=== PATIENT | female | born 1945 | race Caucasian/White ===

== ENCOUNTER 2017-12-26 11:42 | Inpatient (IN) | payer OTHER, BC ==
--- OUTSIDE RECORDS SUMMARY | 2017-12-26 11:44 | XMS REPORT | Clinical Summary ---
:1945 Author Organization [facility] Address [address] [place] [address] Phone Care Team Providers Name Role Phone Unavailable Primary Care Provider Unavailable Allergies Active Allergy Reactions Severity Noted Date Comments Penicillins 10/05/2017 [place]ine 10/06/2017 Current Medications Prescription Sig. Disp. Refills Start End Date Status Date rOPINIRole Take 1 mg by mouth Active (REQUIP) 1 MG daily. tablet estradiol Take 1 mg by mouth Active (ESTRACE) 1 MG daily. tablet gabapentin Take 300 mg by Active (NEURONTIN) 300 MG mouth every other capsule day. gabapentin Take 600 mg by Active (NEURONTIN) 600 MG mouth every other tablet day. pantoprazole Take 40 mg by Active (PROTONIX) 40 MG mouth daily. tablet celecoxib Take 200 mg by Active (CELEBREX) 200 MG mouth daily. capsule nebivolol Take 5 mg by mouth Active (BYSTOLIC) 5 MG daily. tablet montelukast Take 10 mg by Active (SINGULAIR) 10 mg mouth nightly. tablet predniSONE Take 10 mg by Active (DELTASONE) 10 MG mouth daily. tablet folic acid Take 1 mg by mouth Active (FOLVITE) 1 MG daily. tablet cholecalciferol, Take 10,000 Units Active vitamin D3, 1,000 by mouth daily. unit capsule INFLIXIMAB Inject Active (REMICADE IV) intravenously every 7 days. venlafaxine Take 1 capsule 30 tablet 0 10/11/19 Active (EFFEXOR-XR) 150 (150 mg total) by 8 19 MG 24 hr capsule mouth daily with breakfast. methocarbamol Take 1 tablet (750 60 tablet 0 Active (ROBAXIN) 750 MG mg total) by mouth 8 tablet 4 (four) times daily as needed for up to 60 doses. acetaminophen-code Take 1 tablet by 10/10/19 Discontinued ine (TYLENOL #3) mouth every 4 18 300-30 mg per (four) hours as tablet needed for Pain. methotrexate 2.5 Take 7.5 mg by 10/10/19 Discontinued MG tablet mouth. 18 ondansetron Take 1 tablet (4 20 tablet 0 10/17/19 (ZOFRAN-ODT) 4 MG mg total) by mouth 8 18 disintegrating every 8 (eight) tablet hours as needed for up to 7 days. enoxaparin Inject 0.4 mLs (40 12 mL 0 11/09/19 (LOVENOX) 40 mg total) 8 18 mg/0.4 mL Syrg subcutaneously daily for 30 days. famotidine Take 1 tablet (20 60 tablet 0 11/09/19 (PEPCID) 20 MG mg total) by mouth 8 18 tablet 2 (two) times daily for 30 days. docusate sodium Take 1 capsule 10 capsule 0 10/20/19 (COLACE) 100 MG (100 mg total) by 8 18 capsule mouth 2 (two) times daily for 10 days. senna (SENOKOT) Take 1 tablet (8.6 60 tablet 0 11/09/19 8.6 mg tablet mg total) by mouth 8 18 2 (two) times daily for 30 days. oxyCODONE-acetamin Take 1 tablet by 30 tablet 0 10/20/19 ophen (PERCOCET) mouth every 4 8 18 10-325 mg per (four) hours as tablet needed for up to 10 days. Max Daily Amount: 6 tablets vancomycin Inject 250 mLs 4500 mL 0 10/19/19 (VANCOCIN) IVPB (1,250 mg total) 8 18 1250 mg in sodium intravenously chloride 0.9% (NS) every 12 (twelve) 250 mL hours for 9 days. Active Problems Problem Noted Date Anemia 10/10/2017 Hypokalemia 10/10/2017 Bacteremia due to Staphylococcus 10/10/2017 Red man syndrome 10/10/2017 Neuropathic pain 10/10/2017 Rheumatoid arthritis (HCC) 10/10/2017 Superficial venous thrombosis of upper extremity, left 10/10/2017 Hardware complicating wound infection ([facility]) 10/05/2017 Encounters Date Type Specialty Care Team Description 10/05/2017 - Hospital Encounter General Internal aKtt [place] Hardware 10/10/2017 Medicine MD Bernadette complicating wound Kamaljit Ferrell MD infection, initial Milind Wise encounter MD Zach ([facility]);Wound infection;Rheumatoid arthritis of hand, unspecified laterality, unspecified rheumatoid factor presence ([facility]);Paroxysmal SVT (supraventricular tachycardia) ([facility]);Red man syndrome;Superficial vein thrombosis;Bacteremi a due to Staphylococcus;Hypok alemia 10/05/2017 Procedure Pass 10/05/2017 Anesthesia Event Harley Berman CRNA 10/05/2017 Procedure Pass 10/05/2017 Surgery Jaziel Mcclelland LAMINECTOMY,KARI Chiu MD after 12/25/2016 Social History Tobacco Use Types Packs/Day Years Used Date Never Assessed Sex Assigned at Date Recorded Not on file Last Filed Vital Signs Vital Sign Reading Time Taken Blood Pressure 125/58 10/10/2017 3:38 PM SPD MANAGER Pulse 80 10/10/2017 3:38 PM SPD MANAGER Temperature 36.6 C (97.8 F) 10/10/2017 3:38 PM SPD MANAGER Respiratory Rate 17 10/10/2017 3:38 PM SPD MANAGER Oxygen Saturation 94% 10/10/2017 3:38 PM SPD MANAGER Inhaled Oxygen Concentration - - Weight 99.8 kg (220 lb) 10/05/2017 10:12 PM SPD MANAGER Height 167.6 cm (5' 6") 10/05/2017 10:12 PM SPD MANAGER Body Mass Index 35.51 10/05/2017 10:12 PM SPD MANAGER Plan of Treatment Not on file Procedures Procedure Name Priority Date/Time Associated Diagnosis Comments LAMINECTOMY,LUMBAR 10/05/2017 3:00 PM SPD MANAGER LUMBAR WOUND after 12/25/2016 Results RHYTHM STRIP - SCAN (10/14/2017 10:11 AM)XR chest 1 view portable / bedside ( 6:03 PM)Only the most recent of3 resultswithin the time period is included. Specimen Performing Laboratory GE RIS Narrative FINAL REPORT AP view of the chest dated 10/10/2017 CLINICAL INFORMATION: picc line placement repeat stat Comment:Since prior examination, there is interval adjustment of the right PICC line with the tip seen in the proximal superior vena cava. No other changes are seen in the chest. Signed: Debbi Mancini MD Report Verified Date/Time:10/10/2017 19:04:22 Reading Location: [facility] B1 C013W Consult Reading Room Procedure Note Interface, External Ris In - 10/10/2017 7:06 PM SPD MANAGER FINAL REPORT AP view of the chest dated 10/10/2017 CLINICAL INFORMATION: picc line placement repeat stat Comment: Since prior examination, there is interval adjustment of the right PICC line with the tip seen in the proximal superior vena cava. No other changes are seen in the chest. Signed: Debbi Mancini MD Report Verified Date/Time: 10/10/2017 19:04:22 Reading Location: [facility] B1 C013W Consult Reading Room PHERAL VASCULAR REPORT - SCAN (10/09/2017 5:04 PM)Venous doppler arm, left (10/09/2017 2:30 PM) Component Value Ref Range Ejection Fraction Specimen Performing Laboratory [facility] ECHO HEARTLAB MKCKESSON CPACS Impressions Left Impression 1. There is no deep venous obstruction in the jugular, subclavian, axillary, brachial, radial or ulnar veins. 2. There is total echolucent superficial venous obstruction in the basilic and cephalic veins. Conclusions Summary Venous duplex imaging and compression of the left upper extremity were performed. The veins were adequately visualized. The left superficial venous system was positive with acute thrombus. The left deep venous system was patent and compressible with no evidence of thrombus. Signature Velocities are measured in cm/s ; Diameters are measured in cm Narrative PV LAB - Upper Extremities Veins Demographics Patient Name MAGALY LOPEZ Date of Study 10/09/2017 PHILOMENA [id number] Age 71 Visit Number [id number] Gender Female Accession Number [id number] [facility] 1945 [id number] Wagner Gallegos. Kirk Odom MD, RVSPhysician HARSHAD He Procedure Type of Study: Veins: Upper Extremities Veins, VENOUS DOPPLER ARM, LEFT. Indications for Study:Left arm swelling and Pain. Patient Status:EMILY. Study Location:Vascular Lab. Technical Quality:Adequate visualization. - Results were reported to:Mayela Malin RN @ 14:50. Risk Factors History of Disease + + + + !Diagnosis!Date!Comments ! + + + + !History/Risk !10/09/2017!S/P Left arm PICC line placement 10/07/17, Red ! !Factors: !!man syndrome, Wound infection, History of SVT! ! !!and neuropathic pain ! + + + + Procedure Note Interface, External Ris In - 10/09/2017 4:13 PM SPD MANAGER PV LAB - Upper Extremities Veins Demographics Patient Name MAGALY LOPEZ Date of Study 10/09/2017 PHILOMENA Age 71 Visit Number [id number] Gender Female Accession Number [id number] Date of 1945 Referring [facility] Room Number 2227 Physician Purchasing Agent Luke Ledezma Interpreting Lisa Odom MD, RVS Physician HARSHAD He Procedure Type of Study: Veins: Upper Extremities Veins, VENOUS DOPPLER ARM, LEFT. Indications for Study:Left arm swelling and Pain. Patient Status:EMILY. Study Location:Vascular Lab. Technical Quality:Adequate visualization. - Results were reported to:Mayela Malin RN @ 14:50. Risk Factors History of Disease + + + + !Diagnosis !Date !Comments ! + + + + !History/Risk !10/09/2017!S/P Left arm PICC line placement 10/07/17, Red ! !Factors: ! !man syndrome, Wound infection, History of SVT ! ! ! !and neuropathic pain ! + + + + Impressions Left Impression 1. There is no deep venous obstruction in the jugular, subclavian, axillary, brachial, radial or ulnar veins. 2. There is total echolucent superficial venous obstruction in the basilic and cephalic veins. Conclusions Summary Venous duplex imaging and compression of the left upper extremity were performed. The veins were adequately visualized. The left superficial venous system was positive with acute thrombus. The left deep venous system was patent and compressible with no evidence of thrombus. Signature Velocities are measured in cm/s ; Diameters are measured in cm CBC with platelet count + automated diff (10/09/2017 4:50 AM)Only the most recent of3 resultswithin the time period is included. Component Value Ref Range WBC 7.3 3.5 - 10.5 K/L RBC 3.04 (L) 3.93 - 5.22 M/L Hemoglobin 9.3 (L) 11.2 - 15.7 GM/DL Hematocrit 29.3 (L) 34.1 - 44.9 % MCV 96.4 (H) 79.4 - 94.8 fL MCH 30.6 25.6 - 32.2 pg MCHC 31.7 (L) 32.2 - 35.5 GM/DL RDW 13.3 11.7 - 14.4 % Platelets 188 150 - 450 K/CU MM MPV 10.8 9.4 - 12.3 fL nRBC 0 0 - 0 /100 WBC % Neutros 49 % % Lymphs 36 % % Monos 9 % % Eos 5 % % Baso 1 % # Neutros 3.54 1.56 - 6.13 K/L # Lymphs 2.66 1.18 - 3.74 K/L # Monos 0.64 (H) 0.24 - 0.36 K/L # Eos 0.37 (H) 0.04 - 0.36 K/L # Baso 0.05 0.01 - 0.08 K/L Immature Granulocytes-Relative 1 0 - 1 % Specimen Performing Laboratory Blood [address] [address] CBC with platelet count + automated diff (10/09/2017 4:50 AM)Only the most recent of3 resultswithin the time period is included. Specimen Performing Laboratory Blood Narrative The following orders were created for panel order CBC with platelet count + automated diff. Procedure Abnormality Status --------- ------ CBC with platelet count ...[[id number]]AbnormalFinal result Please view results for these tests on the individual orders. Basic Metabolic Panel (10/09/2017 4:50 AM)Only the most recent of3 resultswithin the time period is included. Component Value Ref Range Sodium 142 136 - 145 meq/L Potassium 3.8 3.5 - 5.1 meq/L Chloride 108 (H) 98 - 107 meq/L CO2 25 22 - 29 meq/L BUN 7 7 - 21 mg/dL Creatinine 0.72 0.57 - 1.25 mg/dL Glucose 88 70 - 105 mg/dL Calcium 8.4 8.4 - 10.2 mg/dL EGFR 80Comment: ESTIMATED GFR IS NOT ACCURATE mL/min/1.73 sq m CREATININE CLEARANCE IN PREDICTING GLOMERULAR FILTRATION RATE. ESTIMATED GFR IS NOT APPLICABLE FOR DIALYSIS PATIENTS. Specimen Performing Laboratory Blood [address] [address] Vancomycin level, trough (10/07/2017 1:48 PM) Component Value Ref Range Vancomycin Tr 9.7 (L) 10.0 - 20.0 ug/mL Specimen Performing Laboratory Blood [address] [address] Narrative Please obtain vancomycin trough 30 min prior to scheduled dose Comprehensive metabolic panel (10/07/2017 6:29 AM) Component Value Ref Range Protein, Total 6.6 6.0 - 8.3 gm/dL Albumin 3.5 3.5 - 5.0 g/dL Alkaline Phosphatase 72 40 - 150 U/L Total Bilirubin 0.8 0.2 - 1.2 mg/dL Sodium 141 136 - 145 meq/L Potassium 3.3 (L) 3.5 - 5.1 meq/L Chloride 108 (H) 98 - 107 meq/L CO2 25 22 - 29 meq/L BUN 6 (L) 7 - 21 mg/dL Creatinine 0.76 0.57 - 1.25 mg/dL Glucose 108 (H) 70 - 105 mg/dL Calcium 8.2 (L) 8.4 - 10.2 mg/dL AST 18 5 - 34 U/L ALT 22 6 - 55 U/L EGFR 75Comment: ESTIMATED GFR IS NOT ACCURATE mL/min/1.73 sq m CREATININE CLEARANCE IN PREDICTING GLOMERULAR FILTRATION RATE. ESTIMATED GFR IS NOT APPLICABLE FOR DIALYSIS PATIENTS. Specimen Performing Laboratory Blood [facility] [address] [address] [place] [employer] Exchange Service Adviser in [place] 30 minute increments (10/05/2017 4:30 PM) Specimen Performing Laboratory GE RIS Narrative FINAL REPORT Examination: Fluoroscopic evaluation A single fluoroscopic spot view was obtained during the procedure by the ordering service. Images are nondiagnostic as no radiologist was present at the time of imaging. Cumulative dose was 1.2 mGy. Please see the procedure report for details. Signed: Anderson Yepez MD Report Verified Date/Time:10/05/2017 21:03:54 Reading Location: [address] Reading Room Procedure Note Interface, External Ris In - 10/05/2017 9:06 PM SPD MANAGER FINAL REPORT Examination: Fluoroscopic evaluation A single fluoroscopic spot view was obtained during the procedure by the ordering service. Images are nondiagnostic as no radiologist was present at the time of imaging. Cumulative dose was 1.2 mGy. Please see the procedure report for details. Signed: Anderson Yepez MD Report Verified Date/Time: 10/05/2017 21:03:54 Reading Location: [address] Reading Room Tissue Exam (10/05/2017 4:28 PM) Component Value Ref Range Case Report Surgical Pathology Report Case: [id number] Authorizing Provider:Jaziel Mcclelland MDCollected: 10/05/2017 1628 Ordering Location: [facility] PERIOPERATIVE Received: 10/06/2017 0842 SERVICES Pathologist: Bethany Aranda MD Specimen:Explant, Electrodes and Generator DIAGNOSIS BUFFING WHEEL OPERATOR, LUMBAR SPINE, REMOVAL: - BUFFING WHEEL OPERATOR (GROSS DIAGNOSIS) DB/pl Signing Pathologist Direct Phone Line: [phone] CPT Code(s) 30167 CLINICAL HISTORY Lumbar wound SPECIMEN SOURCE Electrodes and Generator GROSS DESCRIPTION Received fresh labeled "explant", description "electrodes and generator" is a 5.5 x 4.5 x 2.0 cm metallic paramedical aide with two attached clear plastic encased metallic wires each measuring 57.0 cm in length and 0.2 cm in diameter. The specimen is for gross identification only. DB/pl Specimen Performing Laboratory Tissue - Explant [address] [address] AFB culture + smear (10/05/2017 4:23 PM) Component Value Ref Range Result No acid-fast bacilli isolated in 42 days AFB Smear No acid fast bacilli seen Specimen Performing Laboratory Abscess - [address] [address] Anaerobic culture (10/05/2017 4:23 PM) Component Value Ref Range Result No anaerobes isolated Specimen Performing Laboratory Abscess - [address] [address] Surgically obtained culture + gram stain (10/05/2017 4:23 PM) Component Value Ref Range Result Result 4+ Staphylococcus aureus (A) Gram Stain Result 1+ WBCs Gram Stain Result 3+ gram positive cocci in pairs and clusters Specimen Performing Laboratory Abscess - [address] [address] Organism Antibiotic Method Susceptibility Staphylococcus aureus Clindamycin 0.25: Susceptible Staphylococcus aureus Erythromycin 0.5: Susceptible Staphylococcus aureus Linezolid 2: Susceptible Staphylococcus aureus Oxacillin 1: Susceptible Staphylococcus aureus Rifampin <=0.5: Susceptible Staphylococcus aureus Tetracycline <=1: Susceptible Staphylococcus aureus Trimethoprim + Sulfamethoxazole <=10: Susceptible Staphylococcus aureus Vancomycin 1: Susceptible Fungus culture + smear (10/05/2017 4:23 PM) Component Value Ref Range Result No fungus isolated in 28 days Fungus Smear No fungi seen Specimen Performing Laboratory Abscess - [address] [address] HGB/HCT (H&H)-Stat Lab (10/05/2017 3:52 PM) Component Value Ref Range Hemoglobin 10.4 (L) 12.0 - 15.0 g/dL Hematocrit 31.0 (L) 36.0 - 45.0 % Specimen Performing Laboratory Blood, Arterial [address] [address] Urinalysis w/Microscopic (10/05/2017 1:50 PM) Component Value Ref Range Color, UA Light Yellow Clarity, UA Clear Specific [place], UA 1.030 1.001 - 1.035 pH, UA 6.0 5.0 - 8.0 Protein, UA Negative Negative Glucose, UA Negative Negative Ketones, UA Negative Negative Bilirubin, UA Negative Negative Blood, UA Negative Negative Nitrite, UA Negative Negative Leukocytes, UA Negative Negative Urobilinogen, UA 0.2 0.2 - 1.0 mg/dL RBC, UA 0 /HPF WBC, UA 0 /HPF Squam Epithel, UA 1 /HPF Specimen Source Urine, Voided Specimen Performing Laboratory Urine - Urine, Voided [address] [address] Urine culture (10/05/2017 1:50 PM) Component Value Ref Range Result <10,000 col/mL skin loreta Specimen Performing Laboratory Urine - Urine, Voided [address] [address] C-Reactive Protein (10/05/2017 12:14 PM) Component Value Ref Range CRP 5.19 (H) 0.00 - 0.50 mg/dL Specimen Performing Laboratory Blood - Arm, [address] [address] Lactic acid, venous, whole blood (10/05/2017 12:14 PM) Component Value Ref Range Lactate, Venous 1.7 0.5 - 2.2 mmol/L Specimen Performing Laboratory Blood - Arm, [address] [address] Narrative Effective 01/28/2016: Units/Reference Range Change New: 0.5-2.2 mmol/LPrevious: 5-20 mg/dL Blood culture #1 (10/05/2017 12:14 PM)Only the most recent of2 resultswithin the time period is included. Component Value Ref Range Result No growth in 5 days Specimen Performing Laboratory Blood - Arm, [address] [address] Sedimentation rate (10/05/2017 12:14 PM) Component Value Ref Range Sed Rate 18 0 - 40 mm/HR Specimen Performing Laboratory Blood - Arm, [address] [address] Prothrombin time/INR (10/05/2017 12:14 PM) Component Value Ref Range Protime 15.5 (H) 11.7 - 14.7 seconds INR 1.2 <=5.9 Specimen Performing Laboratory Blood - Arm, [address] [address] Narrative RECOMMENDED COUMADIN/WARFARIN INR THERAPY RANGES STANDARD DOSE: 2.0 - 3.0 Includes: PROPHYLAXIS for venous thrombosis, systemic embolization; TREATMENT for venous thrombosis and/or pulmonary embolus. HIGH RISK: Target INR is 2.5-3.5 for patients with mechanical heart valves. after 12/25/2016
--- OUTSIDE RECORDS SUMMARY | 2017-12-26 11:45 | XMS REPORT ---
:1945 [facility] Address [address] [place] [address] Dr. Reeves [address] [place] [id number] Care Team Providers Name Role Phone JADE SHAH Unavailable Unavailable Problems This patient has no known problems. Allergies, Adverse Reactions, Alerts This patient has no known allergies or adverse reactions. Medications This patient has no known medications. Results Test Description Test Time Test Comments Text Results Atomic Results Result Comments AFB CULTURE + SMEAR 2017-11-23 22:54:00 Test Item Value Reference Range Comments CULTURE (BEAKER) (test yrsz=2318) No acid-fast bacilli isolated in 42 days AFB SMEAR (BEAKER) (test zteb=678) No acid fast bacilli seen FUNGUS CULTURE + [id number] 09:24:00 Test Item Value Reference Range Comments CULTURE (BEAKER) (test No fungus isolated in 28 days ggwf=4800) FUNGUS SMEAR (BEAKER) (test No fungi seen mvwn=7385) RAD, CHEST, 1 VIEW, NON [id number] 19:04:00Reason for exam:->picc line placement repeat stat Should this be performed at the bedside?->YesFINAL REPORT AP view of the chest dated 10/10/2017 CLINICAL INFORMATION: piccline placement repeat stat Comment: Since prior examination, there is interval adjustment of the right PICC line with the tip seen in the proximal superior vena cava. No other changes are seen in the chest. Signed: Debbi Mancini Verified Date/Time: 10/10/2017 19:04:22 Reading Location: [facility] [id number] Consult Reading Room RAD, CHEST, 1 VIEW, NON [id number] 18:56: 00Reason for exam:->PICC LINE PLACEMENT Should this be performed at the bedside?->YesFINAL REPORT AP view of the chest dated 10/10/2017 COMPARISON: Same day CLINICAL INFORMATION: PICC LINE PLACEMENT Comment : Since prior examination, there is advancement of the right PICC line tip seen in the left brachiocephalic vein. The right PICC line should be partially withdrawn approximately 1-2 cm. No other changes are seen in the chest. Signed: Debbi Mancini MDReport Verified Date/Time: 10/10/2017 18:56:49 Reading Location: [address] Consult Reading Room BLOOD [id number] 17:00:00 Test Item Value Reference Range Comments CULTURE (BEAKER) (test gdjv=1358) No growth in 5 days BLOOD [id number] 17:00:00 Test Item Value Reference Range Comments CULTURE (BEAKER) (test jmjv=2381) No growth in 5 days ANAEROBIC [id number] 07:29:00 Test Item Value Reference Range Comments CULTURE (BEAKER) (test lnso=9826) No anaerobes isolated BASIC METABOLIC [id number] 05:26:00 Test Item Value Reference Range Comments SODIUM (BEAKER) (test 142 meq/L 136-145 ugqs=466) POTASSIUM (BEAKER) (test 3.8 meq/L 3.5-5.1 qrbl=588) CHLORIDE (BEAKER) (test 108 meq/L 98-107 cpdz=442) CO2 (BEAKER) (test 25 meq/L 22-29 dzjn=244) BLOOD UREA NITROGEN 7 mg/dL 7-21 (BEAKER) (test mrpi=392) CREATININE (BEAKER) (test 0.72 mg/dL 0.57-1.25 knka=044) GLUCOSE RANDOM (BEAKER) 88 mg/dL 70-105 (test wrcj=273) CALCIUM (BEAKER) (test 8.4 mg/dL 8.4-10.2 lbyj=433) EGFR (BEAKER) (test 80 mL/min/1.73 sq m ESTIMATED GFR IS NOT igtk=6854) ACCURATE CREATININE CLEARANCE IN PREDICTING GLOMERULAR FILTRATION RATE. ESTIMATED GFR IS NOT APPLICABLE FOR DIALYSIS PATIENTS. CBC W/PLT COUNT & AUTO [id number] 05:05:00 Test Item Value Reference Range Comments WHITE BLOOD CELL COUNT (BEAKER) (test cpvt=783) 7.3 K/ L 3.5-10.5 RED BLOOD CELL COUNT (BEAKER) (test gwap=414) 3.04 M/ L 3.93-5.22 HEMOGLOBIN (BEAKER) (test kstx=971) 9.3 GM/DL 11.2-15.7 HEMATOCRIT (BEAKER) (test uvka=878) 29.3 % 34.1-44.9 MEAN CORPUSCULAR VOLUME (BEAKER) (test szyg=512) 96.4 fL 79.4-94.8 MEAN CORPUSCULAR HEMOGLOBIN (BEAKER) (test 30.6 pg 25.6-32.2 wyiw=298) MEAN CORPUSCULAR HEMOGLOBIN CONC (BEAKER) (test 31.7 GM/DL 32.2-35.5 mydj=173) RED CELL DISTRIBUTION WIDTH (BEAKER) (test 13.3 % 11.7-14.4 bzgu=253) PLATELET COUNT (BEAKER) (test rdmx=523) 188 K/CU MM 150-450 MEAN PLATELET VOLUME (BEAKER) (test uyap=121) 10.8 fL 9.4-12.3 NUCLEATED RED BLOOD CELLS (BEAKER) (test 0 /100 WBC 0-0 ngbv=609) NEUTROPHILS RELATIVE PERCENT (BEAKER) (test 49 % oveq=650) LYMPHOCYTES RELATIVE PERCENT (BEAKER) (test 36 % pfri=548) MONOCYTES RELATIVE PERCENT (BEAKER) (test 9 % wsry=234) EOSINOPHILS RELATIVE PERCENT (BEAKER) (test 5 % wwhs=020) BASOPHILS RELATIVE PERCENT (BEAKER) (test 1 % enmw=977) NEUTROPHILS ABSOLUTE COUNT (BEAKER) (test 3.54 K/ L 1.56-6.13 nskc=361) LYMPHOCYTES ABSOLUTE COUNT (BEAKER) (test 2.66 K/ L 1.18-3.74 hzov=552) MONOCYTES ABSOLUTE COUNT (BEAKER) (test 0.64 K/ L 0.24-0.36 xqfs=514) EOSINOPHILS ABSOLUTE COUNT (BEAKER) (test 0.37 K/ L 0.04-0.36 xbgw=958) BASOPHILS ABSOLUTE COUNT (BEAKER) (test 0.05 K/ L 0.01-0.08 yrox=085) IMMATURE GRANULOCYTES-RELATIVE PERCENT (BEAKER) 1 % 0-1 (test chbq=8467) RAD, CHEST, 1 VIEW, NON [id number] 18:47:00Reason for exam:->check picc placementShould this be performed at the bedside?->YesFINAL REPORT Chest, portable AP view History: PICC placement Comparison: NoneIMPRESSION: The heart is magnified by portable technique. There is a left upper chest from three patent but the distal catheter tip terminating in appropriate position over the distal SVC. In the lungsare clear. There is no pleural effusion or pneumothorax. Signed: Francis Mayer MDReport Verified Date /Time: 10/07/2017 18:47:06 Reading Location: [address] Consult Reading Room Electronicallysigned by: FRANCIS MAYER on 10/07/2017 06:47 PMVANCOMYCIN LEVEL, [id number] 14:57:00 Test Item Value Reference Range Comments VANCOMYCIN TROUGH (BEAKER) (test wmdb=775) 9.7 ug/mL 10.0-20.0 Please obtain vancomycin trough 30 min prior to scheduled doseURINE [id number] 12:56:00 Test Item Value Reference Range Comments CULTURE (BEAKER) (test <10,000 col/mL skin loreta jmqo=5492) SURGICALLY OBTAINED CULTURE + GRAM [id number] 12:55:00 Test Item Value Reference Range Comments CULTURE (BEAKER) (test awxk=2999) Clindamycin (test code=10) Erythromycin (test code=4) Linezolid (test code=40) Nitrofurantoin (test code=23) Oxacillin (test code=14) Rifampin (test code=43) Tetracycline (test code=2) Trimethoprim + Sulfamethoxazole (test code=47) Vancomycin (test code=13) CULTURE (BEAKER) (test 4+ Staphylococcus aureus zpwy=5872) GRAM STAIN RESULT (BEAKER) 1+ WBCs (test vhdw=7024) GRAM STAIN RESULT (BEAKER) 3+ gram positive (test kgpa=984989) cocci in pairs and clusters COMPREHENSIVE METABOLIC [id number] 07:40:00 Test Item Value Reference Range Comments TOTAL PROTEIN (BEAKER) 6.6 gm/dL 6.0-8.3 (test tgsf=615) ALBUMIN (BEAKER) (test 3.5 g/dL 3.5-5.0 xqoj=3691) ALKALINE PHOSPHATASE 72 U/L 40-150 (BEAKER) (test klzj=958) BILIRUBIN TOTAL (BEAKER) 0.8 mg/dL 0.2-1.2 (test bmmp=322) SODIUM (BEAKER) (test 141 meq/L 136-145 dlvx=012) POTASSIUM (BEAKER) (test 3.3 meq/L 3.5-5.1 dgru=736) CHLORIDE (BEAKER) (test 108 meq/L 98-107 arnq=826) CO2 (BEAKER) (test 25 meq/L 22-29 wila=986) BLOOD UREA NITROGEN 6 mg/dL 7-21 (BEAKER) (test fitj=560) CREATININE (BEAKER) (test 0.76 mg/dL 0.57-1.25 pjty=423) GLUCOSE RANDOM (BEAKER) 108 mg/dL 70-105 (test went=990) CALCIUM (BEAKER) (test 8.2 mg/dL 8.4-10.2 pmdp=443) AST (SGOT) (BEAKER) (test 18 U/L 5-34 gdmo=101) ALT (SGPT) (BEAKER) (test 22 U/L 6-55 dbtk=414) EGFR (BEAKER) (test 75 mL/min/1.73 sq m ESTIMATED GFR IS NOT usji=2251) ACCURATE CREATININE CLEARANCE IN PREDICTING GLOMERULAR FILTRATION RATE. ESTIMATED GFR IS NOT APPLICABLE FOR DIALYSIS PATIENTS. CBC W/PLT COUNT & AUTO [id number] 07:06:00 Test Item Value Reference Range Comments WHITE BLOOD CELL COUNT (BEAKER) (test hzmz=144) 11.0 K/ L 3.5-10.5 RED BLOOD CELL COUNT (BEAKER) (test glak=887) 3.62 M/ L 3.93-5.22 HEMOGLOBIN (BEAKER) (test mhbj=943) 11.2 GM/DL 11.2-15.7 HEMATOCRIT (BEAKER) (test qacx=807) 35.0 % 34.1-44.9 MEAN CORPUSCULAR VOLUME (BEAKER) (test dheo=859) 96.7 fL 79.4-94.8 MEAN CORPUSCULAR HEMOGLOBIN (BEAKER) (test 30.9 pg 25.6-32.2 ocnp=627) MEAN CORPUSCULAR HEMOGLOBIN CONC (BEAKER) (test 32.0 GM/DL 32.2-35.5 pdjt=429) RED CELL DISTRIBUTION WIDTH (BEAKER) (test 13.5 % 11.7-14.4 osee=631) PLATELET COUNT (BEAKER) (test jqsn=196) 185 K/CU MM 150-450 MEAN PLATELET VOLUME (BEAKER) (test tqwt=854) 11.2 fL 9.4-12.3 NUCLEATED RED BLOOD CELLS (BEAKER) (test 0 /100 WBC 0-0 vbpk=827) NEUTROPHILS RELATIVE PERCENT (BEAKER) (test 70 % hfdg=080) LYMPHOCYTES RELATIVE PERCENT (BEAKER) (test 20 % xksz=669) MONOCYTES RELATIVE PERCENT (BEAKER) (test 7 % yuuh=612) EOSINOPHILS RELATIVE PERCENT (BEAKER) (test 2 % sxse=739) BASOPHILS RELATIVE PERCENT (BEAKER) (test 0 % bbmb=569) NEUTROPHILS ABSOLUTE COUNT (BEAKER) (test 7.77 K/ L 1.56-6.13 innv=299) LYMPHOCYTES ABSOLUTE COUNT (BEAKER) (test 2.15 K/ L 1.18-3.74 mcth=954) MONOCYTES ABSOLUTE COUNT (BEAKER) (test 0.80 K/ L 0.24-0.36 yspw=830) EOSINOPHILS ABSOLUTE COUNT (BEAKER) (test 0.22 K/ L 0.04-0.36 jygx=549) BASOPHILS ABSOLUTE COUNT (BEAKER) (test 0.04 K/ L 0.01-0.08 venq=136) IMMATURE GRANULOCYTES-RELATIVE PERCENT (BEAKER) 1 % 0-1 (test vbtt=2008) TISSUE [id number] 17:49:00Surgical Pathology Report Case: [id number] Authorizing Provider: Jaziel Mcclelland MD Collected: 10/05/2017 1628 Ordering Location: [facility] Received: 10/06/2017 0842 SERVICES Pathologist: Bethany Aranda MD Specimen: Explant, Electrodes and Generator RADIO INTERFERENCE TROUBLE SHOOTER, LUMBAR SPINE, REMOVAL: - RADIO INTERFERENCE TROUBLE SHOOTER (GROSS DIAGNOSIS)DB/pl Signing Pathologist Direct PhoneLine: [phone] signed by Bethany Aranda MD on 2017 at 5:49 [id number] woundElectrodes and GeneratorReceived fresh labeled "explant", description "electrodes and generator" is a 5.5 x 4.5 x 2.0 cm metallic medical imaging director with two attached clear plastic encased metallic wires each measuring 57.0 cm in length and 0.2 cm in diameter. The specimen is for gross identification only. DB/plBASI METABOLIC [id number] 06:36:00 Test Item Value Reference Range Comments SODIUM (BEAKER) (test 140 meq/L 136-145 ozfv=780) POTASSIUM (BEAKER) (test 3.6 meq/L 3.5-5.1 Specimen slightly vwhf=144) hemolyzed CHLORIDE (BEAKER) (test 110 meq/L 98-107 noku=923) CO2 (BEAKER) (test 23 meq/L 22-29 tmuv=270) BLOOD UREA NITROGEN 9 mg/dL 7-21 (BEAKER) (test ergf=806) CREATININE (BEAKER) (test 0.74 mg/dL 0.57-1.25 Specimen slightly fwie=445) hemolyzed GLUCOSE RANDOM (BEAKER) 107 mg/dL 70-105 (test wpqv=654) CALCIUM (BEAKER) (test 7.3 mg/dL 8.4-10.2 xgcs=252) EGFR (BEAKER) (test 78 mL/min/1.73 sq m ESTIMATED GFR IS NOT ezrq=5888) ACCURATE CREATININE CLEARANCE IN PREDICTING GLOMERULAR FILTRATION RATE. ESTIMATED GFR IS NOT APPLICABLE FOR DIALYSIS PATIENTS. CO, MEDICAL RECORD CONSULTANT IN OR/30 MINUTE [id number] 21:03:00Reason for exam:-> lumbar wound infectionFINAL REPORT Examination: Fluoroscopic evaluation A single fluoroscopic spotview was obtained during the procedure by the ordering service. Images are nondiagnostic as no radiologist was present at the time of imaging. Cumulative dose was 1.2 mGy. Please see the procedure report for details. Signed: Amari Yepez MDReport Verified Date/ Time: 10/05/2017 21:03:54 Reading Location: [address] Reading Room CBC W/PLT COUNT & AUTO [id number] 17:03:00 Test Item Value Reference Range Comments WHITE BLOOD CELL COUNT (BEAKER) (test hafb=228) 18.1 K/ L 3.5-10.5 RED BLOOD CELL COUNT (BEAKER) (test kxcz=084) 3.07 M/ L 3.93-5.22 HEMOGLOBIN (BEAKER) (test hhzj=818) 9.6 GM/DL 11.2-15.7 HEMATOCRIT (BEAKER) (test wrrj=729) 29.2 % 34.1-44.9 MEAN CORPUSCULAR VOLUME (BEAKER) (test oeuj=649) 95.1 fL 79.4-94.8 MEAN CORPUSCULAR HEMOGLOBIN (BEAKER) (test 31.3 pg 25.6-32.2 rmdn=798) MEAN CORPUSCULAR HEMOGLOBIN CONC (BEAKER) (test 32.9 GM/DL 32.2-35.5 nsmn=709) RED CELL DISTRIBUTION WIDTH (BEAKER) (test 13.6 % 11.7-14.4 qyru=870) PLATELET COUNT (BEAKER) (test vytg=251) 155 K/CU MM 150-450 MEAN PLATELET VOLUME (BEAKER) (test vpwg=451) 11.7 fL 9.4-12.3 NUCLEATED RED BLOOD CELLS (BEAKER) (test 0 /100 WBC 0-0 fnoz=944) NEUTROPHILS RELATIVE PERCENT (BEAKER) (test 73 % lemw=079) LYMPHOCYTES RELATIVE PERCENT (BEAKER) (test 17 % cese=369) MONOCYTES RELATIVE PERCENT (BEAKER) (test 7 % qkna=690) EOSINOPHILS RELATIVE PERCENT (BEAKER) (test 1 % nppe=565) BASOPHILS RELATIVE PERCENT (BEAKER) (test 0 % cilh=735) NEUTROPHILS ABSOLUTE COUNT (BEAKER) (test 13.26 K/ L 1.56-6.13 pxbg=927) LYMPHOCYTES ABSOLUTE COUNT (BEAKER) (test 3.08 K/ L 1.18-3.74 svzd=566) MONOCYTES ABSOLUTE COUNT (BEAKER) (test 1.32 K/ L 0.24-0.36 umfg=324) EOSINOPHILS ABSOLUTE COUNT (BEAKER) (test 0.26 K/ L 0.04-0.36 tfyx=455) BASOPHILS ABSOLUTE COUNT (BEAKER) (test 0.05 K/ L 0.01-0.08 xndy=271) IMMATURE GRANULOCYTES-RELATIVE PERCENT (BEAKER) 1 % 0-1 (test yolv=7386) HGB/HCT (H&H) - STAT [id number] 16:00:00 Test Item Value Reference Range Comments HEMOGLOBIN (BEAKER) (test cngm=216) 10.4 g/dL 12.0-15.0 HEMATOCRIT (BEAKER) (test pkwr=102) 31.0 % 36.0-45.0 URINALYSIS W/ [id number] 15:08:00 Test Item Value Reference Range Comments COLOR (BEAKER) (test ygrs=048) Light Yellow CLARITY (BEAKER) (test ozwn=260) Clear SPECIFIC GRAVITY UA (BEAKER) (test pctu=061) 1.030 1.001-1.035 PH UA (BEAKER) (test ssui=415) 6.0 5.0-8.0 PROTEIN UA (BEAKER) (test mtlq=317) Negative Negative GLUCOSE UA (BEAKER) (test mzax=924) Negative Negative KETONES UA (BEAKER) (test lwxq=914) Negative Negative BILIRUBIN UA (BEAKER) (test jgld=064) Negative Negative BLOOD UA (BEAKER) (test uest=934) Negative Negative NITRITE UA (BEAKER) (test dqel=572) Negative Negative LEUKOCYTE ESTERASE UA (BEAKER) (test nufh=398) Negative Negative UROBILINOGEN UA (BEAKER) (test gyaq=270) 0.2 mg/dL 0.2-1.0 RBC UA (BEAKER) (test ygid=963) 0 /HPF WBC UA (BEAKER) (test tljb=752) 0 /HPF SQUAMOUS EPITHELIAL (BEAKER) (test gpbq=955) 1 /HPF SOURCE(BEAKER) (test vpyf=2308) Urine, Voided SEDIMENTATION [id number] 14:43:00 Test Item Value Reference Range Comments SEDIMENTATION RATE, ERYTHROCYTE (BEAKER) (test 18 mm/HR 0-40 rfdz=405) BASIC METABOLIC [id number] 12:54:00 Test Item Value Reference Range Comments SODIUM (BEAKER) (test 139 meq/L 136-145 wefg=885) POTASSIUM (BEAKER) (test 4.2 meq/L 3.5-5.1 nuad=640) CHLORIDE (BEAKER) (test 106 meq/L 98-107 ewun=821) CO2 (BEAKER) (test 26 meq/L 22-29 jfse=482) BLOOD UREA NITROGEN 13 mg/dL 7-21 (BEAKER) (test vzom=231) CREATININE (BEAKER) (test 0.93 mg/dL 0.57-1.25 ybvl=314) GLUCOSE RANDOM (BEAKER) 144 mg/dL 70-105 (test gscj=450) CALCIUM (BEAKER) (test 7.9 mg/dL 8.4-10.2 lfyb=781) EGFR (BEAKER) (test 60 mL/min/1.73 sq m ESTIMATED GFR IS NOT fiqx=6281) ACCURATE CREATININE CLEARANCE IN PREDICTING GLOMERULAR FILTRATION RATE. ESTIMATED GFR IS NOT APPLICABLE FOR DIALYSIS PATIENTS. C-REACTIVE [id number] 12:51:00 Test Item Value Reference Range Comments C-REACTIVE PROTEIN (BEAKER) (test nulv=623) 5.19 mg/dL 0.00-0.50 LACTIC ACID, VENOUS, WHOLE [id number] 12:48:00 Test Item Value Reference Range Comments LACTATE BLOOD VENOUS (2) (BEAKER) (test 1.7 mmol/L 0.5-2.2 zpmd=2359) Effective 01/28/2016: Units/Reference Range ChangeNew: 0.5-2.2 mmol/L Previous: 5 -20 mg/dLPROTHROMBIN [id number] 12:44:00 Test Item Value Reference Range Comments PROTIME (BEAKER) (test lmzc=047) 15.5 seconds 11.7-14.7 INR (BEAKER) (test ulqq=351) 1.2 <=5.9 RECOMMENDED COUMADIN/WARFARIN INR THERAPY RANGESSTANDARD DOSE: 2.0 - 3.0 Includes: PROPHYLAXIS forvenous thrombosis, systemic embolization; TREATMENT for venous thrombosis and/or pulmonary embolus.HIGH RISK: Target INR is 2.5-3.5 for patients with mechanical heart valves.
[2017-12-26 12:56] LABS: Absolute Lymphocytes (CBC) 1.6 K/uL (0.7-4.9); Absolute Monocytes 0.6 K/uL (0.1-1.3); Absolute Neutrophil 9.6 K/uL (1.8-8.0); Basophils % 0.5 % (0-1.3); Eosinophils % 0.3 % (0-4.4); Hematocrit 39.3 % (36.0-45.0); Lymphocytes % 13.8 % (15.3-44.8); MCV 90.6 fL (80-100); MPV 9.7 fL (7.6-11.3); Monocytes % 4.6 % (3.3-12.3); RBC Red Blood Cell Count 4.33 M/uL (3.86-4.86)
--- NOTE | 2017-12-26 13:00 | RAD REPORT ---
EXAM DESCRIPTION: VAS - Extremity Venous Uni Ltd - 12/26/2017 12:53 pm CLINICAL HISTORY: Leg swelling and edema. COMPARISON: None. FINDINGS: Left lower extremity venous system was interrogated with Doppler technique. Thrombus is vi sible in the left popliteal vein. IMPRESSION: Positive for left popliteal vein DVT.
[2017-12-26 13:01] LABS: Protime INR 1.03
[2017-12-26 13:06] LABS: Potassium 4.4 mEq/L (3.6-5.0)
[2017-12-26 13:12] LABS: Albumin 4.1 g/dL (3.2-5.5); Bilirubin Direct 0.1 mg/dL (0-0.2); Bilirubin Total 0.9 mg/dL (0.3-1.2); Magnesium 2.2 mg/dL (1.8-2.5)
[2017-12-26 13:13] LABS: Urine Blood TRACE (NEG); Urine Glucose NEGATIVE (NEG); Urine Protein NEGATIVE (NEG); Urine Specific Gravity 1.005 (1.005-1.030); Urine pH 6.5 (5.0-7.0)
[2017-12-26 13:13] LABS: CKMB Creatine Kinase MB 1.8 ng/ml (0.3-4.0)
[2017-12-26 13:35] LABS: Arterial Blood Carboxyhemoglob 1.1 % (0-1.5); Blood Gas Oxyhemoglobin 91.4 % (94-97)
--- NOTE | 2017-12-26 13:45 | RAD REPORT ---
EXAM DESCRIPTION: RAD - Chest Single View - 12/26/2017 1:39 pm CLINICAL HISTORY: Progressive shortness of breath. COMPARISON: 10/05/2017 FINDINGS: Portable technique limits examination quality. The lungs are grossly clear. The heart is normal in size. No displaced fractures. IMPRESSION: No acute intrathoracic process suspected.
[2017-12-26] MEDS ORDERED: ENOXAPARIN 30 MG/0.3 ML SQ ONE (14:08)
[2017-12-26] MEDS ORDERED: ENOXAPARIN 80 MG/0.8 ML SQ ONE (14:08)
--- NOTE | 2017-12-26 14:19 | RAD REPORT ---
EXAM DESCRIPTION: CT - Chest For Pe Angio - 12/26/2017 2:00 pm CLINICAL HISTORY: Chest pain. COMPARISON: None. TECHNIQUE: CT angiogram of the pulmonary arteries was performed with MIP. All CT scans are performed using dose optimization technique as appropriate and may include automated exposure control or mA/KV adjustment according to patient size. FINDINGS: A saddle pulmonary embolism is seen. Additional pulmonary embolism is seen in the majority of the segmental branches bilaterally. No evidence of RV strain pattern. No acute aortic finding demonstrated. The lungs are mildly emphysematous but grossly clear. No pulmonary infarct pattern observed. No significant pericardial or pleural fluid. No concerning bony finding. IMPRESSION: Bilateral pulmonary embolism is present, including a saddle pulmonary embolism. The findings were discussed with Dr. Duarte in the emergency room 2:15 p.m. 12/26/2017 by telephone.
--- NOTE | 2017-12-26 14:27 | EDPHYS ---
Physician Documentation [facility] Name: Kiera Gibson Age: 71 yrs Sex: Female : 1945 Arrival Date: 12/26/2017 Time: 11:43 Bed 2 Private MD: Júnior Goncalves ED Physician Eddie De Los Santos HPI: 12/26 18:28 This 71 yrs old Female presents to ER via Wheelchair with complaints of tw4 Shortness Of Breath, Chest Tightness. 18:30 The patient has shortness of breath at rest. Onset: The symptoms/episode began/occurred tw4 2 week(s) ago, and became worse 2 day(s) ago. Duration: The symptoms are continuous, and are unchanged since they started. The patient's shortness of breath has no apparent modifying factors. Associated signs and symptoms: Pertinent positives: chest pain, Pertinent negatives: non-productive cough, productive cough, diaphoresis, dizziness, fever. Severity of symptoms: At their worst the symptoms were moderate in the emergency department the symptoms are unchanged. The patient has not experienced similar symptoms in the past. Historical: - Allergies: 11:53 PILOCARPINE; lk1 11:53 PENICILLINS; lk1 - PMHx: 11:53 Rheumatoid Arthritis; Asthma; Sleep Apnea; SVT; Chronic pain; lk1 - PSHx: 11:53 Hysterectomy; laminectomy; neuro stimulator; lk1 - Immunization history:: Adult Immunizations up to date. - Social history:: Smoking status: Patient/guardian denies using tobacco. ROS: 18:30 Constitutional: Negative for fever, chills, and weight loss, Eyes: Negative for injury, tw4 pain, redness, and discharge, Neck: Negative for injury, pain, and swelling. 18:30 Abdomen/GI: Negative for abdominal pain, nausea, vomiting, diarrhea, and constipation, Back: Negative for injury and pain, MS/Extremity: Negative for injury and deformity, Neuro: Negative for headache, weakness, numbness, tingling, and seizure. 18:30 Cardiovascular: Positive for chest pain, Negative for edema, orthopnea, palpitations. 18:30 Respiratory: Positive for dyspnea on exertion, shortness of breath, at rest. Negative for cough, hemoptysis, orthopnea, pleurisy. Exam: 18:30 Constitutional: This is a well developed, well nourished patient who is awake, alert, tw4 and in no acute distress. Head/Face: Normocephalic, atraumatic. Chest/axilla: Normal chest wall appearance and motion. Nontender with no deformity. No lesions are appreciated. Cardiovascular: Regular rate and rhythm with a normal S1 and S2. No gallops, murmurs, or rubs. Normal PMI, no JVD. No pulse deficits. Respiratory: Lungs have equal breath sounds bilaterally, clear to auscultation and percussion. No rales, rhonchi or wheezes noted. No increased work of breathing, no retractions or nasal flaring. Abdomen/GI: Soft, non-tender, with normal bowel sounds. No distension or tympany. No guarding or rebound. No evidence of tenderness throughout. Back: No spinal tenderness. No costovertebral tenderness. Full range of motion. MS/ Extremity: Pulses equal, no cyanosis. Neurovascular intact. Full, normal range of motion. Neuro: Awake and alert, GCS 15, oriented to person, place, time, and situation. Cranial nerves II-XII grossly intact. Motor strength 5/5 in all extremities. Sensory grossly intact. Cerebellar exam normal. Normal gait. Vital Signs: 11:54 BP 141 / 76; Pulse 73; Resp 22; Temp 98.0(TE); Pulse Ox 95% on R/A; Weight 106.59 kg lk1 (R); Height 5 ft. 6 in. (167.64 cm) (R); Pain 0/10; 13:00 BP 130 / 72; Pulse 70; Resp 19; Pulse Ox 100% on R/A; hb 14:47 BP 129 / 70; Pulse 68; Resp 21; Pulse Ox 90% on R/A; aj 16:20 BP 119 / 76; Pulse 71; Resp 17; Pulse Ox 100% on 2 lpm NC; aj 11:54 Body Mass Index 37.93 (106.59 kg, 167.64 cm) lk1 MDM: 11:55 Patient medically screened. tw4 18:30 Differential diagnosis: reactive airway disease. Data reviewed: vital signs, nurses tw4 notes. Counseling: I had a detailed discussion with the patient and/or guardian regarding: the historical points, exam findings, and any diagnostic results supporting the discharge/admit diagnosis. Special discussion: I discussed with the patient/guardian in detail that at this point there is no indication for admission to the hospital. It is understood, however, that if the symptoms persist or worsen the patient needs to return immediately for re-evaluation. 12/26 12:22 Order name: Basic Metabolic Panel; Complete Time: 14:03 12/26 12:22 Order name: BNP; Complete Time: 14:03 12/26 12:22 Order name: CBC with Diff; Complete Time: 14:03 12/26 12:22 Order name: Ckmb; Complete Time: 14:03 12/26 12:22 Order name: CPK; Complete Time: 14:03 12/26 12:22 Order name: LFT's; Complete Time: 14:03 12/26 12:22 Order name: Magnesium; Complete Time: 14:03 12/26 12:22 Order name: PT-INR; Complete Time: 14:03 12/26 12:22 Order name: Ptt, Activated; Complete Time: 14:03 12/26 12:22 Order name: Troponin (emerg Dept Use Only); Complete Time: 14:03 12/26 12:22 Order name: XRAY Chest (1 view); Complete Time: 14:03 12/26 12:23 Order name: US Extremity Venous Uni Ltd; Complete Time: 14:03 12/26 13:07 Order name: ABG 12/26 13:12 Order name: Urine Dipstick--Ancillary (enter results); Complete Time: 14:03 12/26 12:22 Order name: EKG; Complete Time: 12:23 12/26 12:22 Order name: Cardiac monitoring; Complete Time: 12:55 12/26 12:22 Order name: EKG - Nurse/Tech; Complete Time: 12:55 12/26 12:22 Order name: IV Saline Lock; Complete Time: 12:55 12/26 12:22 Order name: Labs collected and sent; Complete Time: 12:55 12/26 12:22 Order name: O2 Per Protocol; Complete Time: 12:56 12/26 12:22 Order name: O2 Sat Monitoring; Complete Time: 12:56 12/26 12:22 Order name: Urine Dipstick-Ancillary (obtain specimen); Complete Time: 13:07 tw4 12/26 12:57 Order name: CT Chest For PE Angio tw4 12/26 13:07 Order name: Escobar; Complete Time: 13:07 12/26 14:41 Order name: Echo w/ Doppler tw4 Administered Medications: 13:47 Drug: Lovenox 1 mg/kg Route: Sub-Q; Site: abdomen; hb Disposition: 12/26/17 14:27 Hospitalization ordered by Jarad Carter for Inpatient Admission. Preliminary diagnosis are Pulmonary embolism without acute cor pulmonale, Acute embolism and thrombosis of unspecified deep veins of lower extremity. - Bed requested for Intensive Care Unit. - Status is Inpatient Admission. hb - Condition is Fair. - Problem is new. - Symptoms are unchanged. UTI on Admission? No Signatures: Dispatcher [employer] EDMS Joslyn Cole Leah, RN RN [id number] Gin Saldana RN RN Eddie De Los Santos MD MD [id number]
--- NOTE | 2017-12-26 14:27 | ER ---
Nurse's Notes [facility] Name: Kiera Gibson Age: 71 yrs Sex: Female : 1945 Arrival Date: 12/26/2017 Time: 11:43 Bed 2 Private MD: Júnior Goncalves Diagnosis: Pulmonary embolism without acute cor pulmonale;Acute embolism and thrombosis of unspecified deep veins of lower extremity Presentation: 12/26 11:49 Presenting complaint: Presenting complaint: Patient states: "I have shortness of breath lk1 and it's getting worse. I thought it was my asthma, but now I don't think it is. I have some tightness in my chest. It all started 2 weeks ago when I fell and landed on my chest and face. I thought it was that at first. I just don't know what it is because my ankles are swelling. I also had a clot in my left arm after surgery in September. There are many things it could be.". Transition of care: patient was not received from another setting of care. Onset of symptoms was December 13, 2017. Care prior to arrival: None. 11:49 Method Of Arrival: Wheelchair lk1 11:49 Acuity: SHAMAR 3 lk1 Triage Assessment: 11:53 General: Appears in no apparent distress. Behavior is calm, cooperative, appropriate lk1 for age. Pain: Denies pain. Respiratory: Reports shortness of breath Onset: The symptoms/episode began/occurred 2 weeks ago, the patient has mild shortness of breath. Respiratory: Airway is patent Respiratory effort is even, unlabored, Respiratory pattern is symmetrical, tachypnea. Historical: - Allergies: 11:53 PILOCARPINE; lk1 11:53 PENICILLINS; lk1 - PMHx: 11:53 Rheumatoid Arthritis; Asthma; Sleep Apnea; SVT; Chronic pain; lk1 - PSHx: 11:53 Hysterectomy; laminectomy; neuro stimulator; lk1 - Immunization history:: Adult Immunizations up to date. - Social history:: Smoking status: Patient/guardian denies using tobacco. Screenin:15 Abuse screen: Denies threats or abuse. Denies injuries from another. Nutritional hb screening: No deficits noted. Tuberculosis screening: No symptoms or risk factors identified. Fall Risk None identified. Assessment: 12:15 General: Appears in no apparent distress. Behavior is cooperative, anxious. Pain: Pain hb currently is 3 out of 10 on a pain scale. Neuro: Level of Consciousness is awake, alert, obeys commands, Oriented to person, place, time, situation. Cardiovascular: Capillary refill < 3 seconds Patient's skin is warm and dry. Rhythm is regular. Respiratory: Airway is patent Trachea midline Respiratory effort is even, unlabored, Respiratory pattern is regular, symmetrical, Breath sounds are clear bilaterally. GI: No signs and/or symptoms were reported involving the gastrointestinal system. : No signs and/or symptoms were reported regarding the genitourinary system. EENT: No signs and/or symptoms were reported regarding the EENT system. Derm: Skin is intact, is healthy with good turgor, Skin is pink, warm \\T\\ dry. Musculoskeletal: No signs and/or symptoms reported regarding the musculoskeletal system. 13:00 Reassessment: Patient appears in no apparent distress at this time. No changes from hb previously documented assessment. Patient and/or family updated on plan of care and expected duration. Pain level reassessed. Patient is alert, oriented x 3, equal unlabored respirations, skin warm/dry/pink. 14:00 Reassessment: Patient appears in no apparent distress at this time. No changes from hb previously documented assessment. Patient and/or family updated on plan of care and expected duration. Pain level reassessed. Patient is alert, oriented x 3, equal unlabored respirations, skin warm/dry/pink. 15:00 Reassessment: Patient appears in no apparent distress at this time. No changes from hb previously documented assessment. Patient and/or family updated on plan of care and expected duration. Pain level reassessed. Patient is alert, oriented x 3, equal unlabored respirations, skin warm/dry/pink. 16:00 Reassessment: Patient appears in no apparent distress at this time. No changes from hb previously documented assessment. Patient and/or family updated on plan of care and expected duration. Pain level reassessed. Patient is alert, oriented x 3, equal unlabored respirations, skin warm/dry/pink. Vital Signs: 11:54 BP 141 / 76; Pulse 73; Resp 22; Temp 98.0(TE); Pulse Ox 95% on R/A; Weight 106.59 kg lk1 (R); Height 5 ft. 6 in. (167.64 cm) (R); Pain 0/10; 13:00 BP 130 / 72; Pulse 70; Resp 19; Pulse Ox 100% on R/A; hb 14:47 BP 129 / 70; Pulse 68; Resp 21; Pulse Ox 90% on R/A; aj 16:20 BP 119 / 76; Pulse 71; Resp 17; Pulse Ox 100% on 2 lpm NC; aj 11:54 Body Mass Index 37.93 (106.59 kg, 167.64 cm) lk1 ED Course: 11:43 Patient arrived in ED. as 11:43 Júnior Goncalves MD is Private Physician. as 11:51 Triage completed. lk1 11:55 Eddie De Los Santos MD is Attending Physician. tw4 11:55 Arm band placed on right wrist. lk1 12:18 EKG done, by blood or blood bank technician. reviewed by Eddie De Los Santos MD. Initial lab(s) drawn, by me. jb1 Inserted saline lock: 22 gauge in left antecubital area, using aseptic technique. Blood collected. 12:33 Patient taken to ultrasound. via wheelchair. lc3 12:52 Ultrasound completed. Patient tolerated well. lc3 12:53 Patient moved back from ultrasound. lc3 12:54 US Extremity Venous Uni Ltd In Process Unspecified. EDMS 13:08 Gin Saldana, AGNES is Primary Nurse. hb 13:13 Escobar cath inserted, using sterile technique, 18 Fr., by me, balloon inflated, returned aj clear yellow urine. Patient tolerated well. 13:28 X-ray completed. Portable x-ray completed in exam room. Patient tolerated procedure jb2 well. 13:39 XRAY Chest (1 view) In Process Unspecified. EDMS 13:[address] via stretcher. sj 13:56 CT completed. Patient tolerated procedure well. Patient moved back from CT. sj 14:00 CT Chest For PE Angio In Process Unspecified. EDMS 14:23 Jarad Carter MD is Hospitalizing Provider. tw4 14:53 Patient has correct armband on for positive identification. aj 14:53 Notified ED physician of a critical lab result(s). Co 2 11. aj 16:37 No provider procedures requiring assistance completed. Patient admitted, IV remains in hb place. 16:57 22 L AC discontinued, not functional. Bleeding controlled, pressure dressing applied. hb 16:58 Inserted saline lock: 20 gauge in right antecubital area, using aseptic technique. hb Administered Medications: 13:47 Drug: Lovenox 1 mg/kg Route: Sub-Q; Site: abdomen; hb Outcome: 14:27 Decision to Hospitalize by Provider. tw4 16:59 Admitted to ICU accompanied by nurse, accompanied by tech, via stretcher, room 2, with hb oxygen, on monitor, with chart, Report called to AGNES Callejas 16:59 Condition: stable 16:59 Instructed on the need for admit, Demonstrated understanding of instructions. 17:11 Patient left the ED. hb Signatures: Dispatcher [employer] EDMS Yunior Arango jb1 Franca Weaver, Joshua Reid RN2 Ema Walsh Amelia as Cunningham, Laulita lc3 Kluge, Leah, AGNES RN Gin Bhakta RN RN Eddie De Los Santos MD MD tw4
[2017-12-26] MEDS ORDERED: ONDANSETRON 4 MG/2 ML VIAL IV PRN (15:16)
[2017-12-26] MEDS ORDERED: HYDROCODONE/APAP 7.5/325 MG TAB PO PRN (15:16)
[2017-12-26] MEDS ORDERED: ALBUTEROL 2.5 MG/3 ML NEB SOL NEB PRN (15:16)
[2017-12-26] MEDS ORDERED: ACETAMINOPHEN 500 MG TAB PO PRN (15:16)
--- NOTE | 2017-12-26 15:20 | EKG ---
Test Date: 2017-12-26 Test Time: 12:06:48 Registered Account Administrator: HANS MEASUREMENT RESULTS: Intervals: Rate: 70 OR: 152 QRSD: 78 QT: 372 QTc: 401 [place]: P: 19 OR: 152 QRS: 2 T: 31 INTERPRETIVE STATEMENTS: Normal sinus rhythm Normal ECG Compared to ECG 10/05/2017 06:04:31 Sinus tachycardia no longer present Electronically Signed On 12-26-17 15:19:03 CDT by Juan Rivera
--- NOTE | 2017-12-26 15:33 | ECHO ---
HEIGHT: 5 ft 5in WEIGHT: 350 lb oz DATE OF STUDY: 12/26/[address]: Eddie De Los Santos MD 2-DIMENSIONAL: YES M.MODE: YES DOPPLER: YES COLOR FLOW: YES TDS: NO PORTABLE: NO DEFINITY: NO BUBBLE STUDY: NO DIAGNOSIS: RULE OUT RIGHT HEART STRAIN CARDIAC HISTORY: CATHERIZATION: NO SURGERY: NO PROSTHETIC VALVE: NO PACEMAKER: NO MEASUREMENTS (cm) DIASTOLIC (NORMALS) SYSTOLIC (NORMALS) IVSd 0.9 (0.6-1.2) LA Diam 3.3 (1.9-4.0) LVEF 71% LVIDd 4.2 (3.5-5.7) LVIDs 2.6 (2.0-3.5) %FS 40% LVPWd 1.0 (0.6-1.2) Ao Diam 2.8 (2.0-3.7) 2 DIMENSIONAL ASSESSMENT: RIGHT ATRIUM: NORMAL LEFT ATRIUM: NORMAL RIGHT VENTRICLE: NORMAL LEFT VENTRICLE: NORMAL TRICUSPID VALVE: NORMAL MITRAL VALVE: NORMAL PULMONIC VALVE: NORMAL AORTIC VALVE: NORMAL PERICARDIAL EFFUSION: NONE AORTIC ROOT: NORMAL LEFT VENTRICULAR WALL MOTION: NORMAL. DOPPLER/COLOR FLOW: MILD MITRAL AND TRICUSPID REGURGITATION. NORMAL RIGHT VENTRICULAR SYSTOLIC PRESSURE. COMMENTS: NORMAL 2D ECHO. MILD MITRAL AND TRICUSPID REGURGITATION. TECHNOLOGIST: CARLOS HENDERSON
[2017-12-26] MEDS: NA CHLORIDE 0.9% 1,000 ML IV SCH (17:33)
[2017-12-26] MEDS: ROPINIROLE HCL 1 MG TAB PO SCH (20:47)
[2017-12-26] MEDS: ATORVASTATIN 10 MG TAB PO SCH (20:48)
[2017-12-26] MEDS: GABAPENTIN 300 MG CAP PO SCH (20:48)
--- NOTE | 2017-12-27 01:49 | HP ---
Date of Admission: 12/26/2017 Code Status: Full. Chief Complaint: Shortness of breath. Primary Care Physician: Dr. Goncalves. History Of Present Illness: The patient is a 71-year-old female with past medical history of obesity, rheumatoid arthritis on DMARDs, obstructive sleep apnea on CPAP, restless legs syndrome, asthma, who was in her usual state of health until 4 weeks prior to admission when the patient had a long car trip to [place] and then up to [place]. The patient subsequently 2 weeks prior to admission had a mechanical fall and felt pain in her left lower extremity. The patient since then has developed shortness of breath that is worse than her usual with her asthma and gets short of breath with any sort of exertion. The patient's symptoms are constant, moderate, and progressively worsening. She also noted some swelling of her left lower extremity. The patient did not have any improvement with her asthma inhalers. The patient went to her primary care physician for further evaluation and was sent to the ER. She otherwise denies any chest pain, palpitations, nausea, vomiting, fever, chills. No cough or sputum production. No ill contacts. In the ER, the patient's workup reveals O2 saturations of 95% on room air. WBC count was 11.9. Troponin level negative. CT angio chest was done, which showed saddle pulmonary embolus. Chest x-ray was negative. The patient was given therapeutic dose of Lovenox and referred for admission. When the patient was seen in the ER, she was awake , alert, oriented x3, in some mild distress. Past Medical History: CAD, Rheumatoid arthritis on DMARDs, obstructive sleep apnea, on CPAP, and one incident of SVT requiring adenosine, restless legs syndrome, asthma, history of left upper extremity DVT in September, treated with anticoagulants. No longer taking any anticoagulants. Past Surgical History: The patient had a pain pump placement and then subsequent removal due to infection. Allergies: TO PENICILLINS AND PILOCARPINE. Medications: Reviewed. Social History: The patient denies any alcohol use, tobacco use, or illicit drug use. The patient has good social support, 1 daughter. Family History: Positive for stroke in the father and brother. Mom had congestive heart failure. Review of Systems: An 11-point system reviewed, negative except as per HPI. Physical Examination: Vital Signs: Temperature 98, heart rate 73, respirations 22, blood pressure 140 /76, O2 95% on room air. General: Awake, alert, oriented, in some mild distress due to shortness of breath, obese, elderly female, somewhat ill appearing. HEENT: Normocephalic and atraumatic. PERRLA. EOMI. Moist mucous membranes. Oropharynx is clear. Conjunctiva anicteric. Neck: Supple. No JVD. Trachea midline. CV: S1, S2. Regular rate and rhythm. Peripheral pulses are present bilaterally. No murmurs. Respiratory: Clear to auscultation bilaterally. No wheezing. No stridor. No use of accessory muscles. Gastrointestinal: Abdomen is soft, nontender, nondistended. Positive bowel sounds. Extremities: No clubbing or cyanosis. The patient does have left lower extremity edema with some calf tenderness. Skin: No rashes. Normal skin turgor. Neuro: Cranial nerves 2 through 12 intact grossly. Muscle strength is 5/5 in bilateral upper and lower extremity. Sensation intact to light touch. Speech is normal. Laboratory Data: Sodium 138, potassium 4.4, chloride 104, CO2 25, BUN 19, creatinine 0.85, glucose 133, calcium 9.5, magnesium 2.2. Troponin less than 0.03. BNP 31. INR 1.03. WBC 11.9, H and H 13 and 39.3, platelets 180. Imaging: Chest x-ray shows no acute intrathoracic process identified, personally reviewed. Doppler venous positive for left popliteal vein DVT. CT angio chest shows bilateral pulmonary embolism present including saddle pulmonary embolism. Assessment And Plan: A 71-year-old female with; 1. Shortness of breath secondary to acute PE. 2. Acute pulmonary embolism, saddle embolus secondary to deep vein thrombosis in left popliteal vein. 3. Left popliteal vein deep vein thrombosis. 4. Obesity. 5. Obstructive sleep apnea, on CPAP. 6. History of intermittent asthma. 7. Sciatica. 8. Depression, on SSRI. 9. Rheumatoid arthritis on DMARDs. Plan: Admit the patient to ICU, place as inpatient. Provide supplemental oxygenation. We will consult pulmonology, Dr. Boykin. We will obtain echocardiogram urgently to rule out RV strain and check for ejection fraction. The patient does not seem to be hemodynamically unstable. Her O2 saturations are 95% on [address] on bed rest. The patient has already received first dose of Lovenox 1 mg/kg. We will continue q.12 hours. The patient will need oral anticoagulation. The patient does have history of previous left upper extremity DVT after PICC line placement in outside facility. When she was admitted for infection of her pain pump, this thromboembolism seems to be provoked secondary to her long car ride to [place] and back. However, since this is her second DVT, we will obtain Hematology consultation. HRT now contraindicated. We will reconcile home medications as appropriate. The patient instructed to have her CPAP brought in from home to wear at night for sleep apnea. We will follow up on echocardiogram results. LEA Voice ID: [id number] MTDD
[2017-12-27] MEDS: NA CHLORIDE 0.9% 1,000 ML IV SCH (02:21)
[2017-12-27] MEDS ORDERED: Enoxaparin 120 MG/0.8 ML SYR SQ SCH (05:00)
[2017-12-27 05:33] LABS: Absolute Lymphocytes (CBC) 2.8 K/uL (0.7-4.9); Absolute Monocytes 0.6 K/uL (0.1-1.3); Absolute Neutrophil 4.8 K/uL (1.8-8.0); Basophils % 0.5 % (0-1.3); Eosinophils % 1.1 % (0-4.4); Hematocrit 34.7 % (36.0-45.0); Lymphocytes % 33.4 % (15.3-44.8); MCH 30.2 pg (27.0-35.0); MCV 90.6 fL (80-100); MPV 9.3 fL (7.6-11.3); Monocytes % 7.4 % (3.3-12.3); RBC Red Blood Cell Count 3.83 M/uL (3.86-4.86)
[2017-12-27] MEDS: PANTOPRAZOLE 40MG TABLET PO SCH (05:46)
[2017-12-27 05:54] LABS: Albumin 3.3 g/dL (3.2-5.5); Bilirubin Total 0.6 mg/dL (0.3-1.2); Magnesium 2.1 mg/dL (1.8-2.5); Potassium 3.7 mEq/L (3.6-5.0); Protein, Total 5.7 g/dL (6.0-8.3)
[2017-12-27] MEDS ORDERED: POTASSIUM 25 MEQ EFFERV TAB PO ONE (08:00)
[2017-12-27] MEDS: HOME MED 1 EA UNK (Fluticasone/Umeclidin/Vilanter [Trelegy Ellipta 100-62.5-25] 1 PUFF) IH SCH (08:32)
[2017-12-27] MEDS: VENLAFAXINE HCL XR 75 MG CAP PO SCH (08:32)
[2017-12-27] MEDS: GABAPENTIN 300 MG CAP PO SCH (08:33)
--- NOTE | 2017-12-27 08:53 | P.CNS ---
Date of Consult: 12/27/17 Reason for Consult: Pulmonary emboli Chief Complaint: Shortness of breath and chest discomfort History of Present Illness: Patient is 71 years of age admitted with 2 week history of shortness of breath chest discomfort she had fallen about 2 weeks ago also very complaining of swelling of her left leg patient had a DVT in the left arm from a PICC line and received some Lovenox for 3 weeks I last dose was given in October admitted with bilateral pulmonary emboli a left-sided DVT prior history of thromboembolism patient is on hormone replacement therapy patient has a history of asthma Allergies Penicillins Allergy (Verified 12/26/17 17:06) Unknown PILOCARPINE Allergy (Uncoded 12/26/17 17:06) Unknown Home Medications: Albuterol Sulfate [Proair Respiclick] 90 mcg IH Q4H PRN 12/26/17 Atorvastatin Calcium [Lipitor] 10 mg PO BEDTIME 12/26/17 Biotin 1 mg PO DAILY 12/26/17 Celecoxib [Celebrex] 200 mg PO DAILY 12/26/17 Cholecalciferol (Vitamin D3) [Vitamin D3] 1,000 unit PO DAILY 12/26/17 Estradiol [Estrace] 1 mg PO DAILY 12/26/17 Fluticasone/Umeclidin/Vilanter [Trelegy Ellipta 100-62.5-25] 1 puff IH DAILY 11/13 Gabapentin [Neurontin] 300 mg PO DAILY 12/26/17 Montelukast Sodium [Singulair] 10 mg PO BID 12/26/17 Multivit-Min/Iron Fum/Folic AC [Ykgss-Zfvgzlc-Wvrzvvoi Tablet] 1 each PO DAILY 12/26/17 Nebivolol HCl [Bystolic] 5 mg PO DAILY 12/26/17 Pantoprazole [Protonix Tab*] 40 mg PO DAILY 12/26/17 Ropinirole HCl [Requip] 1 mg PO BEDTIME 12/26/17 Turmeric Root Extract [Turmeric] 500 mg PO DAILY 12/26/17 Venlafaxine HCl [Venlafaxine HCl ER] 150 mg PO DAILY 12/26/17 Vitamin B Complex [B Complex] 1 each PO DAILY 12/26/17 Prednisone [Deltasone] 10 mg PO DAILY 12/27/17 - Past Medical/Surgical History Diabetic: No -: R. Athritis -: Asthma -: Sleep Apnea -: Restless Leg Syndrome -: SVT -: CAD -: Hysterectomy () -: Laminectomy (2008) -: Anterior posterior repair (2009) -: Neuro Stimulator Insertion (2017) -: Removal Stimular (2018) - Family History Father Medical History: Hypertension, Stroke Mother Medical History: Heart disease, Hypertension, Cancer Notes: Vulvar CA - Social History Alcohol use: No CD- Drugs: No Caffeine use: Yes Place of Residence: Home Review of Systems 10-point ROS is otherwise unremarkable Respiratory: Shortness of Breath Physical Examination Temp Pulse Resp BP Pulse Ox 97.6 F 69 21 H 136/77 98 12/27/17 04:00 12/27/17 08:32 12/27/17 07:00 12/27/17 08:32 12/27/17 07:00 General: Alert, Oriented x3 HEENT: Atraumatic Neck: Supple Respiratory: Clear to auscultation bilaterally, Diminished Cardiovascular: Normal S1 S2, Edema (Left leg is more swollen than the right) Gastrointestinal: Normal bowel sounds, Soft and benign Laboratory Data (last 24 hrs) 12/26/17 12:30: PT 12.1, INR 1.03, APTT 23.0 L 12/26/17 12:30: WBC 11.9 H, Hgb 13.0, Hct 39.3, Plt Count 180 12/26/17 12:30: B-Natriuretic Peptide 31 12/26/17 12:30: Sodium 138, Potassium 4.4, BUN 19, Creatinine 0.85, Glucose 133 H, Magnesium 2.2, Total Bilirubin 0.9, AST 24, ALT 31, Alkaline Phosphatase 67 - Problems (1) Pulmonary emboli Current Visit: Yes Status: Acute Plan: Patient is 71 years of age admitted with bilateral pulmonary emboli normal echocardiogram no evidence of right ventricular dilatation normal blood pressure she is mildly hypoxic. The extent of pulmonary emboli I suggest lifelong anticoagulation start on Eliquis patient can be transferred to the floor ambulate check daily room air pulse ox the with pharmacy years her insurance covers anticoagulants hormone replacement therapy an absolute contraindication Qualifiers: Chronicity: acute
[2017-12-27] MEDS ORDERED: MONTELUKAST 10 MG TAB PO SCH (09:00)
[2017-12-27] MEDS ORDERED: HOME MED 1 EA UNK (Venlafaxine Hcl [Venlafaxine Hcl Er] 150 MG) PO SCH (09:00)
[2017-12-27] MEDS: METOPROLOL XL 25 MG TAB PO SCH (09:42)
[2017-12-27] MEDS: predniSONE 10 MG TAB PO SCH (10:33)
--- NOTE | 2017-12-27 16:43 | PN ---
Date of Progress Note: 12/27/2017 History: The patient is seen and examined. Chart reviewed and case discussed with RN and Dr. Boykin. The patient states her shortness of breath has improved. Some mild swelling in her left leg continues. Review of Systems: Negative except as per HPI. Medications: Reviewed. Physical Examination: Vital Signs: Temperature 97.6, heart rate at 69, blood pressure 137/77, respirations 21, O2 99% on 2 L via nasal cannula. General: Awake, alert, oriented x3. No acute distress. Morbidly obese female , elderly. CV: S1, S2. No murmurs. Regular rate and rhythm. Peripheral pulses present. Respiratory: Moving air well bilaterally. No wheezing. Abdomen: Abdomen is soft, nontender, nondistended. Positive bowel sounds. No guarding or rigidity. Extremities: No clubbing, cyanosis, or edema. Does have some calf tenderness on the left. Skin: No rashes. Normal skin turgor. Neurologic: Nonfocal. Laboratory Data: Sodium 142, potassium 3.7, chloride 109, CO2 25, BUN 13, creatinine 0.73, glucose 120, calcium 8.3, magnesium 2.1. WBC 8.4, H and H 11.6 , 34.7, platelets 137. Assessment And Plan: A 71-year-old female with: 1. Shortness of breath secondary to acute pulmonary embolism. 2. Acute pulmonary embolism, saddle embolus, secondary to deep vein thrombosis in the left popliteal vein. 3. Left DVT and popliteal vein. 4. Obesity, BMI 38. 5. Obstructive sleep apnea, on CPAP. 6. History of intermittent asthma. We will continue albuterol. 7. Sciatica. 8. Major depressive disorder, in remission, on SSRI. 9. Rheumatoid arthritis. DMARDs on hold. 10. Coronary artery disease [place] artery [place] heart without angina Plan: Step down from ICU. We will continue to wean off oxygen as tolerated. Continue Lovenox and switch over to Eliquis. The patient counseled regarding her hormone replacement therapy, which is contraindicated for her. The patient will need to be on lifelong anticoagulation. Follow up with Hematology as outpatient. Appreciate Dr. Boykin's input. GI, DVT prophylaxis addressed. SA/MODL Voice ID: [id number] Report ID: [id number] [id number]
[2017-12-27] MEDS: MONTELUKAST 10 MG TAB PO SCH (21:17)
[2017-12-27] MEDS: APIXABAN 5 MG TABLET PO SCH (21:17)
[2017-12-27] MEDS: ATORVASTATIN 10 MG TAB PO SCH (21:17)
[2017-12-27] MEDS: ROPINIROLE HCL 1 MG TAB PO SCH (21:17)
[2017-12-28 05:04] LABS: Absolute Lymphocytes (CBC) 2.7 K/uL (0.7-4.9); Absolute Monocytes 0.7 K/uL (0.1-1.3); Absolute Neutrophil 5.2 K/uL (1.8-8.0); Basophils % 0.5 % (0-1.3); Eosinophils % 0.7 % (0-4.4); Hematocrit 36.5 % (36.0-45.0); Lymphocytes % 31.1 % (15.3-44.8); MCH 30.2 pg (27.0-35.0); MCV 90.4 fL (80-100); MPV 9.4 fL (7.6-11.3); Monocytes % 8.2 % (3.3-12.3); RBC Red Blood Cell Count 4.03 M/uL (3.86-4.86)
[2017-12-28 05:21] LABS: Albumin 3.5 g/dL (3.2-5.5); Bilirubin Total 0.6 mg/dL (0.3-1.2); Potassium 3.6 mEq/L (3.6-5.0); Protein, Total 6.1 g/dL (6.0-8.3)
[2017-12-28] MEDS: PANTOPRAZOLE 40MG TABLET PO SCH (05:42)
--- NOTE | 2017-12-28 08:02 | P.PN ---
Subjective Date of Service: 12/28/17 Chief Complaint: Pulmonary embolus Patient has some chest discomfort denies any shortness of breath improving hemodynamically stable Review of Systems Unremarkable Physical Examination - Vital Signs Temperature: 97.0 F Blood Pressure: 139/66 Pulse: 69 Respirations: 18 Pulse Ox (%): 96 - Physical Exam General: Alert, Oriented x3 Neck: Supple Respiratory: Clear to auscultation bilaterally Cardiovascular: Edema (Edema on the left side) Assessment & Plan - Problems (Diagnosis) (1) Pulmonary emboli Current Visit: Yes Status: Acute Plan: Patient is 71 years of age admitted with DVT pulmonary embolism she is on hormone replacement therapy room-air sats this morning when 98% will have a recheck by respiratory therapist blood pressure stable patient can be discharged home on Eliquis 10 mg twice a day for 7 days and then 5 mg twice a day advise her you stay on indefinite anticoagulants therapy due to recurrent thrombosis hormone replacement therapy would be an absolute contraindication to patient to follow up with her director perioperative Qualifiers: Chronicity: acute
[2017-12-28] MEDS ORDERED: POTASSIUM CL SA 10 MEQ TAB PO ONE (09:00)
[2017-12-28] MEDS ORDERED: GABAPENTIN 300 MG CAP PO SCH (09:00)
[2017-12-28] MEDS: HOME MED 1 EA UNK (Fluticasone/Umeclidin/Vilanter [Trelegy Ellipta 100-62.5-25] 1 PUFF) IH SCH (09:00)
[2017-12-28] MEDS: APIXABAN 5 MG TABLET PO SCH (09:11)
[2017-12-28] MEDS: predniSONE 10 MG TAB PO SCH (09:12)
[2017-12-28] MEDS: METOPROLOL XL 25 MG TAB PO SCH (09:12)
[2017-12-28] MEDS: VENLAFAXINE HCL XR 75 MG CAP PO SCH (09:12)
[2017-12-28] MEDS: MONTELUKAST 10 MG TAB PO SCH (09:21)
--- NOTE | 2017-12-29 01:57 | DS ---
Date of Discharge: 12/28/2017 Consultants: Dr. Boykin with Pulmonology. Admitting Diagnoses: 1.Acute pulmonary embolism. 2.Left popliteal vein thrombosis. 3.Obesity. 4.Obstructive sleep apnea. 5.History of intermittent asthma. 6.Sciatica. 7.Depression. 8.Rheumatoid arthritis, on DMARD. Discharge Diagnoses: 1.Acute saddle pulmonary embolism. 2.Left popliteal vein thrombosis. 3.Obesity, body mass index 38. 4.Obstructive sleep apnea, on CPAP. 5.History of intermittent asthma, on albuterol. 6.Sciatica. 7.Major depressive disorder, in remission, on SSRI. 8.Rheumatoid arthritis, on DMARD. 9.Coronary artery disease, [place] artery and [place] heart without angina. Hospital Course: The patient is a 71-year-old female, who was on hormonal replacement therapy for se veral years, comes in with shortness of breath. The patient has had history of DVT previously and th e patient was found to have saddle pulmonary embolism and DVT in the left popliteal vein. The patien t was started on Lovenox, placed in the ICU. She was seen by Pulmonology. Echocardiogram was done, which did not show any right ventricular strain. EF was 71%. The patient was able to be weaned off oxygen. She was not having significant dyspnea upon exertion. Her oxygenation improved with treatme nt. The patient was switched over to Eliquis. She was informed of the risks and benefits of Eliquis compared to Coumadin and otherwise she understood and wished to continue with Eliquis. The patient was able to receive samples. The patient was then cleared for discharge from Pulmonology standpoint. She understands that she can no longer be on hormonal replacement therapy, which is a risk factor. She will require anticoagulation permanently. I have recommended to follow up with Hematology as an outpatient. Follow up with Pulmonology, Dr. Boykin, in 2 weeks. Follow up with primary care phys ician within 1 week. Return to ER for worsening condition. Medications: As per medication reconciliation list. Diet: Heart healthy. Activity: As tolerated. Total time spent discharging the patient was 37 minutes. Physical Examination: General: Awake, alert, oriented, no acute distress obese female. CV: S1, S2. No murmurs. Respiratory: Moving air well bilaterally. Abdomen: Soft, nontender, nondistended. Positive bowel sounds. Extremities: No clubbing, cyanosis, or edema. Neurologic: Nonfocal. SA/MODL Voice ID: [id number] Report ID: [id number]
== END 2017-12-28 14:05 | disposition home or self-care (01) | DRG 176 ==
LOC: ER 11:42 → ERHOLD 15:19 → 3RD-ICU 16:37 → 4TH 12-27 13:51
PROVIDERS: ADMIT Family Medicine; ATTEND Family Medicine
PROC: 0T9B70Z Drainage of Bladder with Drainage Device, Via Natural or Artificial Opening (ICD-10-PCS; principal; 2017-12-26)
DX: I26.92 Saddle embolus of pulmonary artery without acute cor pulmonale (principal); I82.432 Acute embolism and thrombosis of left popliteal vein; E66.9 Obesity, unspecified; M06.9 Rheumatoid arthritis, unspecified; G47.33 Obstructive sleep apnea (adult) (pediatric); G25.81 Restless legs syndrome; F32.9 Major depressive disorder, single episode, unspecified; I25.10 Atherosclerotic heart disease of native coronary artery without angina pectoris; M54.30 Sciatica, unspecified side; Z68.38 Body mass index [BMI] 38.0-38.9, adult
CPT/HCPCS: 36415; 51702; 71045; 71275; 80048; 80053; 80076; 81003; 82550; 82553; 82805; 83735; 83880; 84484; 85025; 85610; 85730; 93005; 93306; 93971; 96372; 99285; J1650; J7030; J7512; Q9967

== ENCOUNTER 2018-04-09 20:04 | Observation (INO) | payer OTHER, BC ==
--- OUTSIDE RECORDS SUMMARY | 2018-04-09 20:07 | XMS REPORT | Clinical Summary ---
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 Social History Tobacco Use Types Packs/Day Years Used Date Never Assessed Sex Assigned at Date Recorded Not on file Last Filed Vital Signs Not on file Plan of Treatment Health Maintenance Due Date Last Done Comments BREAST CANCER SCREENING 1996 COLON CANCER SCREENING 1996 SHINGRIX VACCINE (#1) 1996 ZOSTER VACCINE 2006 PNEUMOCOCCAL POLYSACCHARIDE VACCINE AGE 65 AND OVER 01/01/2012 PNEUMOCOCCAL-13 01/01/2012 INFLUENZA VACCINE 04/26/2018 Procedures Procedure Name Priority Date/Time Associated Diagnosis Comments MRI LUMBAR SPINE Routine 04/06/2018 12:08 Pseudoclaudication Results for this W WO CONTRAST PM CDT syndrome procedure are in the results section. ESTIMATED GFR STAT 04/06/2018 11:05 Results for this AM CDT procedure are in the results section. CREATININE, WHOLE STAT 04/06/2018 11:05 Results for this BLOOD AM CDT procedure are in the results section. 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 FINDINGS: The lumbar curvature is convex towards the right and there is increased lumbar lordosis. There is inward concavity of the endplates more prominent in the upper lumbar region, consistent with Schmorl's nodes. There is no evidence of acute endplate fracture. There are degenerative changes of the upper sacroiliac joints. There is decreased T2 signal intensity in the lumbar discs with relative sparing at the L5-S1 level. L5-S1: There is greater posterior disc space narrowing. There is bulge indenting the anterior epidural fat. There is a tiny subarachnoid space at this level with prominent epidural fat. There are facet hypertrophic changes and mild foramen narrowing. L4-5: There is 4.5 mm grade 1 anterolisthesis with moderate posterior disc space narrowing. There is uncovered disc and bulge indenting the anterior epidural fat. There is a small subarachnoid space. Th ere is left laminectomy and resection of portions of the ligamentum flavum with left posterior lateral outpouching of the subarachnoid space. There are facet hypertrophic changes with fluid in the left facet joint. There is some enhancement in the posterior canal in the region of ligamentum flavum hypertrophy on the right and in the central region. There is some enhancing scar in the region where there was left ligamentum flavum hypertrophy and now resected ligamentum flavum. There is severe narr owing of the subarachnoid space behind the lower L4 vertebral body, with prominent epidural fat. There is gradual enlargement of the subarachnoid space up to the L3-4 disc space level. At the L4-5 disc space level there is severe narrowing of the right s ubarachnoid space in the region of some of the nerve roots. Overall there is moderate foramen stenosis. L3-4: There is mild posterior disc space narrowing. There is bulge with small central protrusion indenting the subarachnoid space. There are facet and ligamentum flavum hypertrophic changes with posterior epidural fat and mild narrowing of the AP dimension of the central subarachnoid space. There is no significant foramen stenosis. L2-3: There is greater posterior disc space narrowing.There is bulge and facet hypertrophic changes without significant canal or foramen stenosis. L1-2: There is bulge with a right paracentral protrusion indenting the anterior subarachnoid space near the right L2 nerve roots. There is no significant central canal stenosis. There are mild facet hyp ertrophic changes. There is no significant foramen stenosis. The distal cord ends at the T12-L1 level. There are no areas of abnormal signal intensity or enhancement in the distal cord. The study was not performed for proper imaging of soft tissue structures in the abdomen and pelvis. IMPRESSION: Postoperative changes at the L4-5 level. Prominent epidural fat behind the L4 vertebral body with severe narrowing of the subarachnoid space at the lower L4 level. There is also a tiny subarachnoid space at the L5-S1 level and behind the L5 vertebral body with prominent epidural fat. Grade 1 anterolisthesis at L4-5 associated with prominent narrowing of the right subarachnoid space. Small right paracentral L1-2 protrusion extending near the L2 nerve roots. Foramen stenosis most prominent at the L4-5 level on both sides. [id number] Procedure Note Hm Interface, Radiology Results - 04/06/2018 4:32 PM CDT EXAMINATION: MRI LUMBAR SPINE W WO CONTRAST CLINICAL HISTORY: M48.062 Spinal stenosis lumbar region with neurogenic claudication, m48.62 COMPARISON: None TECHNIQUE: Multiplanar multisequence pre and post contrast enhanced examination was performed of the Lumbar spine. FINDINGS: The lumbar curvature is convex towards the right and there is increased lumbar lordosis. There is inward concavity of the endplates more prominent in the upper lumbar region, consistent with Schmorl's nodes. There is no evidence of acute endplate fracture. There are degenerative changes of the upper sacroiliac joints. There is decreased T2 signal intensity in the lumbar discs with relative sparing at the L5-S1 level. L5-S1: There is greater posterior disc space narrowing. There is bulge indenting the anterior epidural fat. There is a tiny subarachnoid space at this level with prominent epidural fat. There are facet hypertrophic changes and mild foramen narrowing. L4-5: There is 4.5 mm grade 1 anterolisthesis with moderate posterior disc space narrowing. There is uncovered disc and bulge indenting the anterior epidural fat. There is a small subarachnoid space. There is left laminectomy and resection of portions of the ligamentum flavum with left posterior lateral outpouching of the subarachnoid space. There are facet hypertrophic changes with fluid in the left facet joint. There is some enhancement in the posterior canal in the region of ligamentum flavum hypertrophy on the right and in the central region. There is some enhancing scar in the region where there was left ligamentum flavum hypertrophy and now resected ligamentum flavum. There is severe narrowing of the subarachnoid space behind the lower L4 vertebral body, with prominent epidural fat. There is gradual enlargement of the subarachnoid space up to the L3-4 disc space level. At the L4-5 disc space level there is severe narrowing of the right subarachnoid space in the region of some of the nerve roots. Overall there is moderate foramen stenosis. L3-4: There is mild posterior disc space narrowing. There is bulge with small central protrusion indenting the subarachnoid space. There are facet and ligamentum flavum hypertrophic changes with posterior epidural fat and mild narrowing of the AP dimension of the central subarachnoid space. There is no significant foramen stenosis. L2-3: There is greater posterior disc space narrowing. There is bulge and facet hypertrophic changes without significant canal or foramen stenosis. L1-2: There is bulge with a right paracentral protrusion indenting the anterior subarachnoid space near the right L2 nerve roots. There is no significant central canal stenosis. There are mild facet hypertrophic changes. There is no significant foramen stenosis. The distal cord ends at the T12-L1 level. There are no areas of abnormal signal intensity or enhancement in the distal cord. The study was not performed for proper imaging of soft tissue structures in the abdomen and pelvis. IMPRESSION: Postoperative changes at the L4-5 level. Prominent epidural fat behind the L4 vertebral body with severe narrowing of the subarachnoid space at the lower L4 level. There is also a tiny subarachnoid space at the L5-S1 level and behind the L5 vertebral body with prominent epidural fat. Grade 1 anterolisthesis at L4-5 associated with prominent narrowing of the right subarachnoid space. Small right paracentral L1-2 protrusion extending near the L2 nerve roots. Foramen stenosis most prominent at the L4-5 level on both sides. [id number] Performing Organization Address City/State/Zipcode Phone Number [facility] [address] [place] [address] Creatinine, whole blood (04/06/2018 11:05 AM) Creatinine, whole blood 0.9 0.5 - 1.5 mg/dL [facility] AND [facility] Specimen Plasma specimen Performing Organization Address City/[facility]/Zipcode Phone Number [facility] [address] [place] [address] AND [facility] Estimated GFR (04/06/2018 11:05 AM) GFR Non Af Amer 62 mL/min/1.73 m2 [facility] OF [facility] AND [facility]IC[facility] GFR Af Amer 75 mL/min/1.73 m2 [facility] DEPARTMENT OF Comment: PATHOLOGY AND GENOMIC Chronic kidney disease: <60 mL/min/1.73m2 MEDICINE Kidney failure: <15 mL/min/1.73m2 The estimated GFR is calculated from the IDMS-traceable Modification of Diet in Renal Disease Equation. The accuracy of the calculation is poor when the creatinine is normal. Calculated values >90 mL/min/1.73m2 are not reported. This equation has not been validated in children (<18 years), women, the elderly (>70 years), or ethnic groups other than Caucasians and Americans. Specimen Plasma specimen Performing Organization Address City/State/Zipcode Phone Number [facility] OF PATHOLOG[facility] [address] [facility] [place] [address] AND [facility] MEDICINE after 04/08/2017 Insurance Payer Benefit Plan / Group Subscriber ID Type Phone Address MEDICARE MEDICARE PART A AND B xxxxxxxxxx Medicare [place], [place] BCBS BCBS CHOICE PPO/[employer]ERAL EMPL PPO xxxxxxxxxxxx PPO Home: [address] [place], [place] [phone] [place], [place] [phone]
--- OUTSIDE RECORDS SUMMARY | 2018-04-09 20:07 | XMS REPORT ---
:1945 Author Organization [facility] Address [address] [place] [address] Dr. Reeves [address] [place] [id number] Care Team Providers Name Role Phone MARIA SHAH Unavailable Unavailable Problems This patient has no known problems. Allergies, Adverse Reactions, Alerts This patient has no known allergies or adverse reactions. Medications This patient has no known medications. Results Test Description Test Time Test Comments Text Results Atomic Results Result Comments AFB CULTURE + SMEAR 2017-11-23 22:54:00 Test Item Value Reference Range Comments CULTURE (BEAKER) (test juec=6011) No acid-fast bacilli isolated in 42 days AFB SMEAR (BEAKER) (test kuzr=969) No acid fast bacilli seen FUNGUS CULTURE + [id number] 09:24:00 Test Item Value Reference Range Comments CULTURE (BEAKER) (test No fungus isolated in 28 days ouzl=1245) FUNGUS SMEAR (BEAKER) (test No fungi seen imjp=9104) RAD, CHEST, 1 VIEW, NON [id number] 19:04:00Reason for exam:->picc line placement repeat stat [...] Mancini Verified Date/Time: 10/10/2017 19:04:22 Reading Location: [facility] [id number] Consult Reading Room RAD, CHEST, 1 VIEW, NON [id number] 18:56: 00Reason for exam:->PICC LINE PLACEMENT Should [...] MDReport Verified Date/Time: 10/10/2017 18:56:49 Reading Location: [address] Consult Reading Room BLOOD [id number] 17:00:00 Test Item Value Reference Range Comments CULTURE (BEAKER) (test ztid=2435) No growth in 5 days BLOOD [id number] 17:00:00 Test Item Value Reference Range Comments CULTURE (BEAKER) (test yban=4179) No growth in 5 days ANAEROBIC [id number] 07:29:00 Test Item Value Reference Range Comments CULTURE (BEAKER) (test hvau=3540) No anaerobes isolated BASIC METABOLIC [id number] 05:26:00 Test Item Value Reference Range Comments SODIUM (BEAKER) (test 142 meq/L 136-145 utmv=575) POTASSIUM (BEAKER) (test 3.8 meq/L 3.5-5.1 xgkb=259) CHLORIDE (BEAKER) (test 108 meq/L 98-107 hbgp=052) CO2 (BEAKER) (test 25 meq/L 22-29 ttbm=709) BLOOD UREA NITROGEN 7 mg/dL 7-21 (BEAKER) (test xdxr=533) CREATININE (BEAKER) (test 0.72 mg/dL 0.57-1.25 bhud=745) GLUCOSE RANDOM (BEAKER) 88 mg/dL 70-105 (test eooq=781) CALCIUM (BEAKER) (test 8.4 mg/dL 8.4-10.2 yirv=982) EGFR (BEAKER) (test 80 mL/min/1.73 sq m ESTIMATED GFR IS NOT msrm=6397) ACCURATE CREATININE CLEARANCE IN PREDICTING GLOMERULAR FILTRATION RATE. ESTIMATED GFR IS NOT APPLICABLE FOR DIALYSIS PATIENTS. CBC W/PLT COUNT & AUTO [id number] 05:05:00 Test Item Value Reference Range Comments WHITE BLOOD CELL COUNT (BEAKER) (test htde=573) 7.3 K/ L 3.5-10.5 RED BLOOD CELL COUNT (BEAKER) (test pqwq=751) 3.04 M/ L 3.93-5.22 HEMOGLOBIN (BEAKER) (test yxop=231) 9.3 GM/DL 11.2-15.7 HEMATOCRIT (BEAKER) (test xtql=956) 29.3 % 34.1-44.9 MEAN CORPUSCULAR VOLUME (BEAKER) (test fnrn=040) 96.4 fL 79.4-94.8 MEAN CORPUSCULAR HEMOGLOBIN (BEAKER) (test 30.6 pg 25.6-32.2 aymy=910) MEAN CORPUSCULAR HEMOGLOBIN CONC (BEAKER) (test 31.7 GM/DL 32.2-35.5 cdmg=914) RED CELL DISTRIBUTION WIDTH (BEAKER) (test 13.3 % 11.7-14.4 atkm=510) PLATELET COUNT (BEAKER) (test hciu=512) 188 K/CU MM 150-450 MEAN PLATELET VOLUME (BEAKER) (test welc=306) 10.8 fL 9.4-12.3 NUCLEATED RED BLOOD CELLS (BEAKER) (test 0 /100 WBC 0-0 xwff=501) NEUTROPHILS RELATIVE PERCENT (BEAKER) (test 49 % jjch=494) LYMPHOCYTES RELATIVE PERCENT (BEAKER) (test 36 % kmmn=223) MONOCYTES RELATIVE PERCENT (BEAKER) (test 9 % pkuh=370) EOSINOPHILS RELATIVE PERCENT (BEAKER) (test 5 % sbrk=641) BASOPHILS RELATIVE PERCENT (BEAKER) (test 1 % luna=058) NEUTROPHILS ABSOLUTE COUNT (BEAKER) (test 3.54 K/ L 1.56-6.13 mwkf=836) LYMPHOCYTES ABSOLUTE COUNT (BEAKER) (test 2.66 K/ L 1.18-3.74 wojg=976) MONOCYTES ABSOLUTE COUNT (BEAKER) (test 0.64 K/ L 0.24-0.36 djyc=812) EOSINOPHILS ABSOLUTE COUNT (BEAKER) (test 0.37 K/ L 0.04-0.36 proa=221) BASOPHILS ABSOLUTE COUNT (BEAKER) (test 0.05 K/ L 0.01-0.08 hcfh=835) IMMATURE GRANULOCYTES-RELATIVE PERCENT (BEAKER) 1 % 0-1 (test beer=5186) RAD, CHEST, 1 VIEW, NON [id number] 18:47:00Reason for exam:->check picc placementShould this be [...] Verified Date /Time: 10/07/2017 18:47:06 Reading Location: [address] Consult Reading Room Electronicallysigned by: FRANCIS MAYER on 10/07/2017 06:47 PMVANCOMYCIN LEVEL, [id number] 14:57:00 Test Item Value Reference Range Comments VANCOMYCIN TROUGH (BEAKER) (test gwog=595) 9.7 ug/mL 10.0-20.0 Please obtain vancomycin trough 30 min prior to scheduled doseURINE [id number] 12:56:00 Test Item Value Reference Range Comments CULTURE (BEAKER) (test angz=3381) <10,000 col/mL skin loreta SURGICALLY OBTAINED CULTURE + GRAM [id number] 12:55:00 Test Item Value Reference Range Comments CULTURE (BEAKER) (test ythq=6597) Clindamycin (test code=10) Erythromycin (test code=4) Linezolid (test code=40) Nitrofurantoin (test code=23) Oxacillin (test code=14) Rifampin (test code=43) Tetracycline (test code=2) Trimethoprim + Sulfamethoxazole (test code=47) Vancomycin (test code=13) CULTURE (BEAKER) (test 4+ Staphylococcus aureus trzr=6598) GRAM STAIN RESULT (BEAKER) 1+ WBCs (test flxd=7562) GRAM STAIN RESULT (BEAKER) 3+ gram positive (test taru=133622) cocci in pairs and clusters COMPREHENSIVE METABOLIC [id number] 07:40:00 Test Item Value Reference Range Comments TOTAL PROTEIN (BEAKER) 6.6 gm/dL 6.0-8.3 (test sesy=494) ALBUMIN (BEAKER) (test 3.5 g/dL 3.5-5.0 yykz=3122) ALKALINE PHOSPHATASE 72 U/L 40-150 (BEAKER) (test pzcy=873) BILIRUBIN TOTAL (BEAKER) 0.8 mg/dL 0.2-1.2 (test gydf=772) SODIUM (BEAKER) (test 141 meq/L 136-145 odga=856) POTASSIUM (BEAKER) (test 3.3 meq/L 3.5-5.1 lpzr=696) CHLORIDE (BEAKER) (test 108 meq/L 98-107 porp=750) CO2 (BEAKER) (test 25 meq/L 22-29 sfmr=628) BLOOD UREA NITROGEN 6 mg/dL 7-21 (BEAKER) (test ymkf=995) CREATININE (BEAKER) (test 0.76 mg/dL 0.57-1.25 jzqb=653) GLUCOSE RANDOM (BEAKER) 108 mg/dL 70-105 (test upnc=703) CALCIUM (BEAKER) (test 8.2 mg/dL 8.4-10.2 bdmj=256) AST (SGOT) (BEAKER) (test 18 U/L 5-34 tten=599) ALT (SGPT) (BEAKER) (test 22 U/L 6-55 flnf=002) EGFR (BEAKER) (test 75 mL/min/1.73 sq m ESTIMATED GFR IS NOT vzdl=0413) ACCURATE CREATININE CLEARANCE IN PREDICTING GLOMERULAR FILTRATION RATE. ESTIMATED GFR IS NOT APPLICABLE FOR DIALYSIS PATIENTS. CBC W/PLT COUNT & AUTO [id number] 07:06:00 Test Item Value Reference Range Comments WHITE BLOOD CELL COUNT (BEAKER) (test ycdn=875) 11.0 K/ L 3.5-10.5 RED BLOOD CELL COUNT (BEAKER) (test jmnx=651) 3.62 M/ L 3.93-5.22 HEMOGLOBIN (BEAKER) (test jzur=987) 11.2 GM/DL 11.2-15.7 HEMATOCRIT (BEAKER) (test jkwz=983) 35.0 % 34.1-44.9 MEAN CORPUSCULAR VOLUME (BEAKER) (test zcnx=872) 96.7 fL 79.4-94.8 MEAN CORPUSCULAR HEMOGLOBIN (BEAKER) (test 30.9 pg 25.6-32.2 ltmi=683) MEAN CORPUSCULAR HEMOGLOBIN CONC (BEAKER) (test 32.0 GM/DL 32.2-35.5 zdye=616) RED CELL DISTRIBUTION WIDTH (BEAKER) (test 13.5 % 11.7-14.4 mkhk=985) PLATELET COUNT (BEAKER) (test atdg=982) 185 K/CU MM 150-450 MEAN PLATELET VOLUME (BEAKER) (test yozc=873) 11.2 fL 9.4-12.3 NUCLEATED RED BLOOD CELLS (BEAKER) (test 0 /100 WBC 0-0 atsf=663) NEUTROPHILS RELATIVE PERCENT (BEAKER) (test 70 % vcam=809) LYMPHOCYTES RELATIVE PERCENT (BEAKER) (test 20 % fsnu=976) MONOCYTES RELATIVE PERCENT (BEAKER) (test 7 % ljwd=083) EOSINOPHILS RELATIVE PERCENT (BEAKER) (test 2 % ssuk=627) BASOPHILS RELATIVE PERCENT (BEAKER) (test 0 % rjom=134) NEUTROPHILS ABSOLUTE COUNT (BEAKER) (test 7.77 K/ L 1.56-6.13 vrmj=310) LYMPHOCYTES ABSOLUTE COUNT (BEAKER) (test 2.15 K/ L 1.18-3.74 tnnn=033) MONOCYTES ABSOLUTE COUNT (BEAKER) (test 0.80 K/ L 0.24-0.36 ryhd=188) EOSINOPHILS ABSOLUTE COUNT (BEAKER) (test 0.22 K/ L 0.04-0.36 gknp=277) BASOPHILS ABSOLUTE COUNT (BEAKER) (test 0.04 K/ L 0.01-0.08 yvvj=848) IMMATURE GRANULOCYTES-RELATIVE PERCENT (BEAKER) 1 % 0-1 (test ilho=0270) TISSUE [id number] 17:49:00Surgical Pathology Report Case: [id number] Authorizing Provider: Jaziel Mcclelland MD Collected: 10/05/2017 1628 Ordering Location: [facility] Received: 10/06/2017 0842 SERVICES Pathologist: Bethany Aranda MD Specimen: Explant, Electrodes and Generator SURVEY INSTRUMENT OPERATOR, LUMBAR SPINE, REMOVAL: - SURVEY INSTRUMENT OPERATOR (GROSS DIAGNOSIS)DB/pl Signing Pathologist Direct PhoneLine: [phone] signed by Bethany Aranda MD on 2017 at 5:49 [id number] woundElectrodes and GeneratorReceived fresh labeled "explant", description "electrodes and generator" is a 5.5 x 4.5 x 2.0 cm metallic medical assistant cardiology with two attached clear plastic encased metallic wires each measuring 57.0 cm in length and 0.2 cm in diameter. The specimen is for gross identification only. DB/plBASI METABOLIC [id number] 06:36:00 Test Item Value Reference Range Comments SODIUM (BEAKER) (test 140 meq/L 136-145 wguu=518) POTASSIUM (BEAKER) (test 3.6 meq/L 3.5-5.1 Specimen slightly hcza=106) hemolyzed CHLORIDE (BEAKER) (test 110 meq/L 98-107 nojw=389) CO2 (BEAKER) (test 23 meq/L 22-29 ujfo=256) BLOOD UREA NITROGEN 9 mg/dL 7-21 (BEAKER) (test epml=214) CREATININE (BEAKER) (test 0.74 mg/dL 0.57-1.25 Specimen slightly cptx=494) hemolyzed GLUCOSE RANDOM (BEAKER) 107 mg/dL 70-105 (test jycl=134) CALCIUM (BEAKER) (test 7.3 mg/dL 8.4-10.2 insu=065) EGFR (BEAKER) (test 78 mL/min/1.73 sq m ESTIMATED GFR IS NOT kbll=3859) ACCURATE CREATININE CLEARANCE IN PREDICTING GLOMERULAR FILTRATION RATE. ESTIMATED GFR IS NOT APPLICABLE FOR DIALYSIS PATIENTS. VT, LOAD HAUL DUMP OPERATOR IN OR/30 MINUTE [id number] 21:03:00Reason for exam:-> lumbar wound infectionFINAL REPORT Examination: Fluoroscopic evaluation A single fluoroscopic spotview was obtained during the procedure by the ordering service. Images are nondiagnostic as no radiologist was present at the time of imaging. Cumulative dose was 1.2 mGy. Please see the procedure report for details. Signed: Amari Yepez MDReport Verified Date/ Time: 10/05/2017 21:03:54 Reading Location: [address] Reading Room CBC W/PLT COUNT & AUTO [id number] 17:03:00 Test Item Value Reference Range Comments WHITE BLOOD CELL COUNT (BEAKER) (test iiea=386) 18.1 K/ L 3.5-10.5 RED BLOOD CELL COUNT (BEAKER) (test cdfj=435) 3.07 M/ L 3.93-5.22 HEMOGLOBIN (BEAKER) (test aoht=931) 9.6 GM/DL 11.2-15.7 HEMATOCRIT (BEAKER) (test nyxc=648) 29.2 % 34.1-44.9 MEAN CORPUSCULAR VOLUME (BEAKER) (test snbo=447) 95.1 fL 79.4-94.8 MEAN CORPUSCULAR HEMOGLOBIN (BEAKER) (test 31.3 pg 25.6-32.2 eisz=854) MEAN CORPUSCULAR HEMOGLOBIN CONC (BEAKER) (test 32.9 GM/DL 32.2-35.5 hluk=113) RED CELL DISTRIBUTION WIDTH (BEAKER) (test 13.6 % 11.7-14.4 sixj=254) PLATELET COUNT (BEAKER) (test zpwq=433) 155 K/CU MM 150-450 MEAN PLATELET VOLUME (BEAKER) (test feun=713) 11.7 fL 9.4-12.3 NUCLEATED RED BLOOD CELLS (BEAKER) (test 0 /100 WBC 0-0 yfic=579) NEUTROPHILS RELATIVE PERCENT (BEAKER) (test 73 % frjv=297) LYMPHOCYTES RELATIVE PERCENT (BEAKER) (test 17 % nizz=393) MONOCYTES RELATIVE PERCENT (BEAKER) (test 7 % cgmn=594) EOSINOPHILS RELATIVE PERCENT (BEAKER) (test 1 % erlx=002) BASOPHILS RELATIVE PERCENT (BEAKER) (test 0 % iqlm=321) NEUTROPHILS ABSOLUTE COUNT (BEAKER) (test 13.26 K/ L 1.56-6.13 pqlt=652) LYMPHOCYTES ABSOLUTE COUNT (BEAKER) (test 3.08 K/ L 1.18-3.74 naqb=867) MONOCYTES ABSOLUTE COUNT (BEAKER) (test 1.32 K/ L 0.24-0.36 xjde=746) EOSINOPHILS ABSOLUTE COUNT (BEAKER) (test 0.26 K/ L 0.04-0.36 fbhy=166) BASOPHILS ABSOLUTE COUNT (BEAKER) (test 0.05 K/ L 0.01-0.08 ivgs=206) IMMATURE GRANULOCYTES-RELATIVE PERCENT (BEAKER) 1 % 0-1 (test noqn=2134) HGB/HCT (H&H) - STAT [id number] 16:00:00 Test Item Value Reference Range Comments HEMOGLOBIN (BEAKER) (test cdgy=935) 10.4 g/dL 12.0-15.0 HEMATOCRIT (BEAKER) (test jiez=786) 31.0 % 36.0-45.0 URINALYSIS W/ [id number] 15:08:00 Test Item Value Reference Range Comments COLOR (BEAKER) (test zqss=823) Light Yellow CLARITY (BEAKER) (test tabw=705) Clear SPECIFIC GRAVITY UA (BEAKER) (test opdu=347) 1.030 1.001-1.035 PH UA (BEAKER) (test vtuv=094) 6.0 5.0-8.0 PROTEIN UA (BEAKER) (test zwni=428) Negative Negative GLUCOSE UA (BEAKER) (test aouu=912) Negative Negative KETONES UA (BEAKER) (test xota=574) Negative Negative BILIRUBIN UA (BEAKER) (test cbto=897) Negative Negative BLOOD UA (BEAKER) (test gvxj=128) Negative Negative NITRITE UA (BEAKER) (test mamd=299) Negative Negative LEUKOCYTE ESTERASE UA (BEAKER) (test weet=259) Negative Negative UROBILINOGEN UA (BEAKER) (test jxqm=623) 0.2 mg/dL 0.2-1.0 RBC UA (BEAKER) (test yljm=155) 0 /HPF WBC UA (BEAKER) (test snjb=013) 0 /HPF SQUAMOUS EPITHELIAL (BEAKER) (test vqdp=101) 1 /HPF SOURCE(BEAKER) (test wyht=4223) Urine, Voided SEDIMENTATION [id number] 14:43:00 Test Item Value Reference Range Comments SEDIMENTATION RATE, ERYTHROCYTE (BEAKER) (test 18 mm/HR 0-40 ecmk=886) BASIC METABOLIC [id number] 12:54:00 Test Item Value Reference Range Comments SODIUM (BEAKER) (test 139 meq/L 136-145 adlv=809) POTASSIUM (BEAKER) (test 4.2 meq/L 3.5-5.1 yymk=145) CHLORIDE (BEAKER) (test 106 meq/L 98-107 ibpu=577) CO2 (BEAKER) (test 26 meq/L 22-29 larw=075) BLOOD UREA NITROGEN 13 mg/dL 7-21 (BEAKER) (test hqjo=634) CREATININE (BEAKER) (test 0.93 mg/dL 0.57-1.25 znzb=604) GLUCOSE RANDOM (BEAKER) 144 mg/dL 70-105 (test bmjq=035) CALCIUM (BEAKER) (test 7.9 mg/dL 8.4-10.2 jzsq=292) EGFR (BEAKER) (test 60 mL/min/1.73 sq m ESTIMATED GFR IS NOT nnys=0781) ACCURATE CREATININE CLEARANCE IN PREDICTING GLOMERULAR FILTRATION RATE. ESTIMATED GFR IS NOT APPLICABLE FOR DIALYSIS PATIENTS. C-REACTIVE [id number] 12:51:00 Test Item Value Reference Range Comments C-REACTIVE PROTEIN (BEAKER) (test jybw=497) 5.19 mg/dL 0.00-0.50 LACTIC ACID, VENOUS, WHOLE [id number] 12:48:00 Test Item Value Reference Range Comments LACTATE BLOOD VENOUS (2) (BEAKER) (test 1.7 mmol/L 0.5-2.2 oaqm=7400) Effective 01/28/2016: Units/Reference Range ChangeNew: 0.5-2.2 mmol/L Previous: 5 -20 mg/dLPROTHROMBIN TIME/[id number] 12:44:00 Test Item Value Reference Range Comments PROTIME (BEAKER) (test otps=857) 15.5 seconds 11.7-14.7 INR (BEAKER) (test mktl=821) 1.2 <=5.9 RECOMMENDED COUMADIN/WARFARIN INR THERAPY RANGESSTANDARD DOSE: 2.0 - 3.0 Includes: PROPHYLAXIS forvenous thrombosis, systemic embolization; TREATMENT for venous thrombosis and/or pulmonary embolus.HIGH RISK: Target INR is 2.5-3.5 for patients with mechanical heart valves.
--- OUTSIDE RECORDS SUMMARY | 2018-04-09 20:07 | XMS REPORT | Clinical Summary ---
:1945 Author Organization [facility] Address [address] [place] [address] Phone Care Team Providers Name Role Phone [...] extremity, left 10/10/2017 Hardware complicating wound infection ([facility]ERLY [facility]) 10/05/2017 Encounters Date Type Specialty Care Team Description 10/05/2017 - Hospital Encounter General Internal Katt [place] Hardware 10/10/2017 Medicine MD Bernadette complicating wound Kamaljit Ferrell MD infection, initial Milind Wise encounter MD Zach ([facility]LY [facility]);Wound infection;Rheumatoid arthritis of hand, unspecified laterality, unspecified rheumatoid factor presence ([facility]);Paroxysmal SVT (supraventricular tachycardia) ([facility]);Red man syndrome;Superficial vein thrombosis;Bacteremi a due to Staphylococcus;Hypok alemia 10/05/2017 Procedure Pass 10/05/2017 Anesthesia Event Harley Berman CRNA 10/05/2017 Procedure Pass 10/05/2017 Surgery Jaziel Mcclelland LAMINECTOMY,KARI Chiu MD after 04/08/2017 Social History Tobacco Use Types Packs/Day Years Used Date Never Assessed Sex Assigned at Date Recorded Not on file Last Filed Vital Signs Vital Sign Reading Time Taken Blood Pressure 125/58 10/10/2017 3:38 PM [facility] Pulse 80 10/10/2017 3:38 PM [facility] Temperature 36.6 C (97.8 F) 10/10/2017 3:38 PM [facility] Respiratory Rate 17 10/10/2017 3:38 PM [facility] Oxygen Saturation 94% 10/10/2017 3:38 PM [facility] Inhaled Oxygen Concentration - - Weight 99.8 kg (220 lb) 10/05/2017 10:12 PM [facility] Height 167.6 cm (5' 6") 10/05/2017 10:12 PM [facility] Body Mass Index 35.51 10/05/2017 10:12 PM [facility] Plan of Treatment Not on file Procedures Procedure Name Priority Date/Time Associated Diagnosis Comments LAMINECTOMY,LUMBAR 10/05/2017 3:00 PM [facility] LUMBAR WOUND after 04/08/2017 Results RHYTHM STRIP - SCAN (10/14/2017 10:11 [...] MD Report Verified Date/Time:10/10/2017 19:04:22 Reading Location: [facility] B1 C013W Consult Reading Room Procedure Note Interface, External Ris In - 10/10/2017 7:06 PM [facility] FINAL REPORT AP view of the chest dated 10/10/2017 CLINICAL INFORMATION: picc line placement repeat stat Comment: Since prior examination, there is interval adjustment of the right PICC line with the tip seen in the proximal superior vena cava. No other changes are seen in the chest. Signed: Debbi Mancini MD Report Verified Date/Time: 10/10/2017 19:04:22 Reading Location: [facility] B1 C013W Consult Reading Room PHERAL VASCULAR REPORT - SCAN (10/09/2017 5:04 PM)Venous doppler arm, left (10/09/2017 2:30 PM) Component Value Ref Range Ejection Fraction Specimen Performing Laboratory [facility] MKCKESSON CPACS Impressions Left Impression [...] MAGALY LOPEZ Date of Study 10/09/2017 [place] [id number] Age 71 Visit Number [id number] Gender Female [facility]ion Number [id number] [facility] 1945 [facility] Wagner Gallegos. Kirk Odom [...] External Ris In - 10/09/2017 4:13 PM [facility] PV LAB - Upper Extremities Veins Demographics Patient Name MAGALY LOPEZ Date of Study 10/09/2017 [place] Age 71 Visit Number [id number] Gender Female Accession Number [id number] Date of 1945 Referring [facility] Room Number 2227 Physician Shipping Receiving Manager Luke Ledezma Interpreting Lisa Odom MD, RVS [...] - 1 % Specimen Performing Laboratory Blood [address] [address] CBC with platelet count + automated diff (10/09/2017 4:50 AM)Only the most recent of3 resultswithin the time period is included. Specimen Performing Laboratory Blood Narrative The following orders were created for panel order CBC with platelet count + automated diff. Procedure Abnormality Status --------- ------ CBC with platelet count ...[[id number]]AbnormalFinal result Please view results for these tests [...] FOR DIALYSIS PATIENTS. Specimen Performing Laboratory Blood [address] [address] Vancomycin level, trough (10/07/2017 1:48 PM) Component Value Ref Range Vancomycin Tr 9.7 (L) 10.0 - 20.0 ug/mL Specimen Performing Laboratory Blood [address] [address] Narrative Please obtain vancomycin trough 30 min [...] DIALYSIS PATIENTS. Specimen Performing Laboratory Blood [facility] [address] [address] [place] Parts Clerk Plant Maintenance in OR 30 minute increments (10/05/2017 4:30 [...] MD Report Verified Date/Time:10/05/2017 21:03:54 Reading Location: [address] Reading Room Procedure Note Interface, External Ris In - 10/05/2017 9:06 PM [employer] FINAL REPORT Examination: Fluoroscopic evaluation A single fluoroscopic spot view was obtained during the procedure by the ordering service. Images are nondiagnostic as no radiologist was present at the time of imaging. Cumulative dose was 1.2 mGy. Please see the procedure report for details. Signed: Anderson Yepez MD Report Verified Date/Time: 10/05/2017 21:03:54 Reading Location: [address] Reading Room Tissue Exam (10/05/2017 4:28 PM) Component Value Ref Range Case Report Surgical Pathology Report Case: [id number] Authorizing Provider:Jaziel Mcclelland MDCollected: 10/05/2017 1628 Ordering Location: [facility] Received: 10/06/2017 0842 SERVICES Pathologist: Bethany Aranda MD Specimen:Explant, Electrodes and Generator DIAGNOSIS IV THERAPY NURSE, LUMBAR SPINE, REMOVAL: - IV THERAPY NURSE (GROSS DIAGNOSIS) DB/pl Signing Pathologist Direct Phone Line: [phone] CPT Code(s) 57087 CLINICAL HISTORY Lumbar wound SPECIMEN SOURCE Electrodes and Generator GROSS DESCRIPTION Received fresh labeled "explant", description "electrodes and generator" is a 5.5 x 4.5 x 2.0 cm metallic medical program specialist with two attached clear plastic encased metallic wires each measuring 57.0 cm in length and 0.2 cm in diameter. The specimen is for gross identification only. DB/pl Specimen Performing Laboratory Tissue - Explant [address] [address] AFB culture + smear (10/05/2017 4:23 PM) Component Value Ref Range Result No acid-fast bacilli isolated in 42 days AFB Smear No acid fast bacilli seen Specimen Performing Laboratory Abscess - [address] [address] Anaerobic culture (10/05/2017 4:23 PM) Component Value Ref Range Result No anaerobes isolated Specimen Performing Laboratory Abscess - Spine[address] [address] Surgically obtained culture + gram stain (10/05/2017 4:23 PM) Component Value Ref Range Result Result 4+ Staphylococcus aureus (A) Gram Stain Result 1+ WBCs Gram Stain Result 3+ gram positive cocci in pairs and clusters Specimen Performing Laboratory Abscess - [address] [address] Organism Antibiotic Method Susceptibility Staphylococcus aureus Clindamycin [...] fungi seen Specimen Performing Laboratory Abscess - Spine, [address] [address] HGB/HCT (H&H)-Stat Lab (10/05/2017 3:52 PM) Component Value Ref Range Hemoglobin 10.4 (L) 12.0 - 15.0 g/dL Hematocrit 31.0 (L) 36.0 - 45.0 % Specimen Performing Laboratory Blood, Arterial [address] [address] Urinalysis w/Microscopic (10/05/2017 1:50 PM) Component Value Ref Range Color, UA Light Yellow Clarity, UA Clear Specific [place], UA 1.030 1.001 - 1.035 pH, UA [...] Specimen Performing Laboratory Urine - Urine, Voided [address] [address] Urine culture (10/05/2017 1:50 PM) Component Value Ref Range Result <10,000 col/mL skin loreta Specimen Performing Laboratory Urine - Urine, Voided [address] [address] C-Reactive Protein (10/05/2017 12:14 PM) Component Value Ref Range CRP 5.19 (H) 0.00 - 0.50 mg/dL Specimen Performing Laboratory Blood - Arm, Right [address] [address] Lactic acid, venous, whole blood (10/05/2017 12:14 PM) Component Value Ref Range Lactate, Venous 1.7 0.5 - 2.2 mmol/L Specimen Performing Laboratory Blood - Arm, [address] [address] Narrative Effective 01/28/2016: Units/Reference Range Change New: 0.5-2.2 mmol/LPrevious: 5-20 mg/dL Blood culture #1 (10/05/2017 12:14 PM)Only the most recent of2 resultswithin the time period is included. Component Value Ref Range Result No growth in 5 days Specimen Performing Laboratory Blood - Arm, [address] [address] Sedimentation rate (10/05/2017 12:14 PM) Component Value Ref Range Sed Rate 18 0 - 40 mm/HR Specimen Performing Laboratory Blood - Arm, [address] [address] Prothrombin time/INR (10/05/2017 12:14 PM) Component Value Ref Range Protime 15.5 (H) 11.7 - 14.7 seconds INR 1.2 <=5.9 Specimen Performing Laboratory Blood - Arm, [address] [address] Narrative RECOMMENDED COUMADIN/WARFARIN INR THERAPY RANGES STANDARD DOSE: 2.0 - 3.0 Includes: PROPHYLAXIS for venous thrombosis, systemic embolization; TREATMENT for venous thrombosis and/or pulmonary embolus. HIGH RISK: Target INR is 2.5-3.5 for patients with mechanical heart valves. after 04/08/2017
[2018-04-09 20:31] LABS: Absolute Lymphocytes (CBC) 3.1 K/uL (0.7-4.9); Absolute Monocytes 0.9 K/uL (0.1-1.3); Absolute Neutrophil 5.7 K/uL (1.8-8.0); Basophils % 0.8 % (0-1.3); Eosinophils % 1.6 % (0-4.4); Hematocrit 38.7 % (36.0-45.0); Lymphocytes % 31.5 % (15.3-44.8); MCH 30.7 pg (27.0-35.0); MCV 91.6 fL (80-100); MPV 9.7 fL (7.6-11.3); RBC Red Blood Cell Count 4.23 M/uL (3.86-4.86)
[2018-04-09 20:37] LABS: Protime INR 1.33
[2018-04-09] MEDS ORDERED: MORPHINE 4 MG/ML SYR ONE (20:40)
[2018-04-09] MEDS ORDERED: ONDANSETRON 4 MG/2 ML VIAL ONE (20:40)
[2018-04-09 20:53] LABS: Albumin 3.7 g/dL (3.4-5.0); Bilirubin Direct 0.1 mg/dL (0-0.2); Bilirubin Total 0.3 mg/dL (0.2-1.0); CKMB Creatine Kinase MB 1.1 ng/mL (0.3-3.6); Magnesium 2.4 mg/dL (1.8-2.4); Potassium 3.9 mmol/L (3.5-5.1); Protein, Total 7.5 g/dL (6.4-8.2)
--- NOTE | 2018-04-09 21:43 | RAD REPORT ---
EXAM DESCRIPTION: CT - Chest For Pe Angio - 04/09/2018 9:14 pm CLINICAL HISTORY: Chest pain COMPARISON: December in February 2018 TECHNIQUE: Dynamically enhanced axial 3 mm thick images of the chest were obtained during administra tion of <100> mL Isovue 370 IV contrast. Coronal and oblique reconstruction images were generated and reviewed. Exam utilizes a protocol for optimal evaluation of pulmonary arterial tree. Maximum intensity projections 3D imaging was utilized All CT scans are performed using dose optimization technique as appropriate and may include automated exposure control or mA/KV adjustment according to patient size. FINDINGS: A pulmonary embolus is not seen. A thoracic aortic aneurysm is not noted. Calcified mediastinal lymph node is noted. A pleural effusion is not seen. A pericardial effusion is not seen. A lung consolidation is not present. 7 millimeter within each lower lobe is unchanged IMPRESSION: Negative for a pulmonary embolism. Bilateral stable 7 millimeter lung nodules. Per Fleischner recommendation followup CT in approximatel y 15 months is recommended
--- NOTE | 2018-04-09 21:43 | RAD REPORT ---
EXAM DESCRIPTION: Javan Single View04/09/2018 8:59 pm CLINICAL HISTORY: Chest pain COMPARISON: February 2018 FINDINGS: The lungs appear clear of acute infiltrate. The heart is normal size IMPRESSION: No acute abnormalities displayed
[2018-04-09 22:20] LABS: Urine Blood TRACE (NEG); Urine Glucose NEGATIVE (NEG); Urine Protein NEGATIVE (NEG); Urine Specific Gravity <1.005 (1.005-1.030); Urine pH 6.5 (5.0-7.0)
--- NOTE | 2018-04-09 22:30 | P.HP ---
Certification for Inpatient Patient admitted to: Observation With expected LOS: <2 Midnights Practitioner: I am a practitioner with admitting privileges, knowledge of patient current condition, hospital course, and medical plan of care. Services: Services provided to patient in accordance with Admission requirements found in Title 42 Section 412.3 of the Code of Federal Regulations Patient History Date of Service: 04/09/18 Reason for admission: chest pain History of Present Illness: Ms Gibson is a 72 years old woman with history of PE, HTN, CAD, SVT episode, Asthma RA on DMARD's, sleep apnea, who this afternoon, suddenly start with chest pain in substernal area. She described the pain as stubbing, not radiated , come and go, lasting for 30 seconds. Intensity 7/10. She denied nausea, vomiting, SOB, dizziness, palpitations, or diaphoresis episode associated with the pain. She has never had this kind of pain in the past. EKG shows no ST-T abnormalities. Initial troponin I is negative, CXR no acute abnormalities, CTA chest no PE or infiltrate, however, it is remarkable for bilateral pulmonary node about 7 mm that needs to have further follow up with a new image. Allergies Penicillins Allergy (Verified 12/26/17 17:06) Unknown PILOCARPINE Allergy (Uncoded 12/26/17 17:06) Unknown Home medications list reviewed: Yes Home Medications: Albuterol Sulfate [Proair Respiclick] 90 mcg IH Q4H PRN 12/26/17 Atorvastatin Calcium [Lipitor*] 10 mg PO BEDTIME 12/26/17 Biotin 1 mg PO DAILY 12/26/17 Cholecalciferol (Vitamin D3) [Vitamin D3] 1,000 unit PO DAILY 12/26/17 Fluticasone/Umeclidin/Vilanter [Trelegy Ellipta 100-62.5-25] 1 puff IH DAILY 11/13 Gabapentin [Neurontin*] 300 mg PO DAILY 12/26/17 Montelukast Sodium [Singulair] 10 mg PO BID 12/26/17 Multivit-Min/Iron Fum/Folic AC [Mdzkm-Udjivht-Iljgxyfz Tablet] 1 each PO DAILY 12/26/17 Pantoprazole [Protonix Tab*] 40 mg PO DAILY 12/26/17 Ropinirole HCl [Requip*] 1 mg PO BEDTIME 12/26/17 Turmeric Root Extract [Turmeric] 500 mg PO DAILY 12/26/17 Venlafaxine HCl [Venlafaxine HCl ER] 150 mg PO DAILY 12/26/17 Vitamin B Complex [B Complex] 1 each PO DAILY 12/26/17 predniSONE [Prednisone*] 10 mg PO DAILY 12/27/17 Apixaban [Eliquis] 10 mg PO SEECOM #60 tablet 12/28/17 Metoprolol Succinate [Toprol Xl*] 25 mg PO DAILY #30 tab 12/28/17 - Past Medical/Surgical History Diabetic: No -: R. Athritis -: Asthma -: Sleep Apnea -: Restless Leg Syndrome -: SVT -: CAD -: PE -: Hysterectomy () -: Laminectomy (2008) -: Anterior posterior repair (2009) -: Neuro Stimulator Insertion (2016) -: Removal Stimular (2017) - Family History Father -: Hypertension, Stroke Mother -: Heart disease, Hypertension, Cancer Notes: Vulvar CA - Social History Smoking Status: Never smoker Alcohol use: No CD- Drugs: No Caffeine use: Yes Place of Residence: Home Review of Systems 10-point ROS is otherwise unremarkable Physical Examination - Physical Exam General: Alert, In no apparent distress HEENT: Atraumatic, PERRLA, Mucous membr. moist/pink, EOMI, Sclerae nonicteric Neck: Supple, 2+ carotid pulse no bruit, No LAD, Without JVD or thyroid abnormality Respiratory: Clear to auscultation bilaterally, Normal air movement Cardiovascular: Regular rate/rhythm, Normal S1 S2 Gastrointestinal: Normal bowel sounds, No tenderness Musculoskeletal: No tenderness Integumentary: No rashes Neurological: Normal speech, Normal strength at 5/5 x4 extr, Normal tone, Normal affect Lymphatics: No axilla or inguinal lymphadenopathy - Studies Laboratory Data (last 24 hrs) 04/09/18 20:20: PT 15.7 H, INR 1.33, APTT 34.6 04/09/18 20:20: WBC 9.9, Hgb 13.0, Hct 38.7, Plt Count 229 04/09/18 20:20: Sodium 142, Potassium 3.9, BUN 14, Creatinine 1.00, Glucose 97, Magnesium 2.4, Total Bilirubin 0.3, AST 22, ALT 36, Alkaline Phosphatase 97 Assessment and Plan - Problems (Diagnosis) (1) History of pulmonary embolism Current Visit: Yes Status: Acute (2) Chest pain Current Visit: Yes Status: Acute Qualifiers: Chest pain type: unspecified Qualified Code(s): R07.9 - Chest pain, unspecified (3) KARMEN on CPAP Onset Date: 12/29/17 Current Visit: No Status: Acute (4) Obesity Onset Date: 12/29/17 Current Visit: No Status: Acute Qualifiers: Obesity type: unspecified obesity type Obesity classification: unspecified obesity classification Serious obesity comorbidity presence: unspecified whether serious comorbidity present Qualified Code(s): E66.9 - Obesity, unspecified (5) Rheumatoid arthritis Onset Date: 12/29/17 Current Visit: No Status: Acute Qualifiers: Rheumatoid arthritis location: unspecified site Rheumatoid factor presence : unspecified presence Qualified Code(s): M06.9 - Rheumatoid arthritis, unspecified - Plan The patient will be admitted to the hospital due to chest pain. So far Troponin I is negative, EKG without ST-T abnormalieits. Will order serial cardiac enzymes and EKG, ECHO in AM, cardilogy consult. Continue ASA, statins, beta jordana and anticoagulation with apixiban - Advance Directives Does patient have a Living Will: No Does patient have a Durable POA for Healthcare: Yes - Code Status/Comfort Care Code Status Assessed: Yes Code Status: Full Code
--- NOTE | 2018-04-09 22:48 | EDPHYS ---
Physician Documentation [facility] Name: Kiera Gibson Age: 72 yrs Sex: Female : 1945 Arrival Date: 04/09/2018 Time: 20:05 Bed 6 Private MD: Júnior Goncalves ED Physician Troy Edgar HPI: 04/09 20:20 This 72 yrs old Female presents to ER via Unassigned with complaints of Chest kdr Pain > 30 y/o. 20:20 The patient or guardian reports chest pain that is located primarily in the substernal kdr area, mid-sternal area. Onset: suddenly, just prior to arrival, 0.5 hour(s) ago. The pain does not radiate. Associated signs and symptoms: The patient has no apparent associated signs or symptoms. The chest pain is described as sharp, stabbing. Duration: The patient or guardian reports multiple episodes, that are intermittent, that wax and wane, with no pattern. Modifying factors: The symptoms are alleviated by nothing. the symptoms are aggravated by nothing. Severity of pain: At its worst the pain was moderate severe just prior to arrival, in the emergency department the pain has improved Still having pain intermittently. The patient has not experienced similar symptoms in the past. The patient has not recently seen a physician. The patient had a PE earlier this year and is currently on Eliquis. This pain is not similar to any prior pain, it intermittent and brief coming and going. Historical: - Allergies: 20:38 PENICILLINS; aa1 20:38 PILOCARPINE; aa1 - Home Meds: 20:38 celecoxib 200 mg Oral cap [Active]; gabapentin 300 mg Oral cap [Active]; Methotrexate aa1 (Anti-Rheumatic) Oral [Active]; montelukast 10 mg Oral tab 1 tab once daily [Active]; pantoprazole 40 mg Oral TbEC 1 tab once daily [Active]; prednisone 5 mg Oral tab once daily [Active]; ropinirole 1 mg Oral tab [Active]; Eliquis 5 mg oral tab 1 tab 2 times per day [Active]; metoprolol tartrate 25 mg Oral tab 1 tab once daily [Active]; Trilogy inhaler daily [Active]; venlafaxine 150 mg oral tr24 1 tab once daily [Active]; Abilify oral oral every other day [Active]; Actos Oral [Active]; Remicade 100 mg intravenous solr [Active]; - PMHx: 20:38 Asthma; Chronic pain; Rheumatoid Arthritis; Sleep Apnea; SVT; Depression; PE; DVT; RLS; aa1 Gastric Reflux; - PSHx: 20:38 Hysterectomy; laminectomy; neuro stimulator; aa1 - Immunization history:: Pneumococcal vaccine is up to date, Flu vaccine is up to date. - Social history:: Smoking status: Patient/guardian denies using tobacco. - Ebola Screening: : No symptoms or risks identified at this time. ROS: 20:20 Constitutional: Negative for fever, chills, and weight loss, Eyes: Negative for injury, kdr pain, redness, and discharge, ENT: Negative for injury, pain, and discharge, Neck: Negative for injury, pain, and swelling, Respiratory: Negative for shortness of breath, cough, wheezing, and pleuritic chest pain, Abdomen/GI: Negative for abdominal pain, nausea, vomiting, diarrhea, and constipation, Back: Negative for injury and pain, : Negative for injury, bleeding, discharge, and swelling, MS/Extremity: Negative for injury and deformity, Skin: Negative for injury, rash, and discoloration, Neuro: Negative for headache, weakness, numbness, tingling, and seizure activity. Psych: Negative for depression, anxiety, suicide ideation, homicidal ideation, and hallucinations, Allergy/Immunology: Negative for hives, rash, and allergies, Endocrine: Negative for neck swelling, polydipsia, polyuria, polyphagia, and marked weight changes, Hematologic/Lymphatic: Negative for swollen nodes, abnormal bleeding, and unusual bruising. 20:20 Cardiovascular: Positive for chest pain, Negative for edema, orthopnea, palpitations, paroxysmal nocturnal dyspnea. Exam: 20:20 Constitutional: This is a well developed, well nourished patient who is awake, alert, kdr and in no acute distress. Head/Face: Normocephalic, atraumatic. Eyes: Pupils equal round and reactive to light, extra-ocular motions intact. Lids and lashes normal. Conjunctiva and sclera are non-icteric and not injected. Cornea within normal limits. Periorbital areas with no swelling, redness, or edema. Neck: Trachea midline, no thyromegaly or masses palpated, and no cervical lymphadenopathy. Supple, full range of motion without nuchal rigidity, or vertebral point tenderness. No Meningismus. Chest/axilla: Normal chest wall appearance and motion. Nontender with no deformity. No lesions are appreciated. Cardiovascular: Regular rate and rhythm with a normal S1 and S2. No gallops, murmurs, or rubs. Normal PMI, no JVD. No pulse deficits. Respiratory: Lungs have equal breath sounds bilaterally, clear to auscultation and percussion. No rales, rhonchi or wheezes noted. No increased work of breathing, no retractions or nasal flaring. Abdomen/GI: Soft, non-tender, with normal bowel sounds. No distension or tympany. No guarding or rebound. No evidence of tenderness throughout. Back: No spinal tenderness. No costovertebral tenderness. Full range of motion. Skin: Warm, dry with normal turgor. Normal color with no rashes, no lesions, and no evidence of cellulitis. MS/ Extremity: Pulses equal, no cyanosis. Neurovascular intact. Full, normal range of motion. Neuro: Awake and alert, GCS 15, oriented to person, place, time, and situation. Cranial nerves II-XII grossly intact. Motor strength 5/5 in all extremities. Sensory grossly intact. Cerebellar exam normal. Normal gait. Psych: Awake, alert, with orientation to person, place and time. Behavior, mood, and affect are within normal limits. Vital Signs: 20:10 BP 138 / 74; Pulse 83; Resp 18; Temp 98.6; Pulse Ox 98% on R/A; Weight 104.33 kg; aa1 Height 5 ft. 6 in. (167.64 cm); Pain 0/10; 21:15 BP 132 / 72; Pulse 81; Resp 13; Pulse Ox 97% ; bp 22:30 BP 101 / 76; Pulse 75; Resp 21; Pulse Ox 96% ; bp 20:10 Body Mass Index 37.12 (104.33 kg, 167.64 cm) aa1 MDM: 20:20 The patient's pulmonary embolism risk score was calculated as follows: the patient has kdr a history of a previous deep vein thrombosis or pulmonary embolism (1.5 Pts). Data reviewed: vital signs, nurses notes. ED course: The patient had a prior PE (1.5) and she is on B-Laina so unable to determine if HR is greater than 100 which may put her in moderate risk category. 21:58 Patient medically screened. [facility] 04/09 20:12 Order name: Basic Metabolic Panel; Complete Time: 21: [facility] 04/09 20:12 Order name: CBC with Diff; Complete Time: 21: [facility] 04/09 20:12 Order name: Ckmb; Complete Time: 21:05 [facility] 04/09 20:12 Order name: CPK; Complete Time: 21: [facility] 04/09 20:12 Order name: LFT's; Complete Time: 21: [facility] 04/09 20:12 Order name: Magnesium; Complete Time: 21: [facility] 04/09 20:12 Order name: NT PRO-BNP; Complete Time: 21: [facility] 04/09 20:12 Order name: PT-INR; Complete Time: 21: [facility] 04/09 20:12 Order name: Ptt, Activated; Complete Time: 21: [facility] 04/09 20:12 Order name: Troponin (emerg Dept Use Only); Complete Time: 21: [facility] 04/09 20:12 Order name: XRAY Chest (1 view); Complete Time: 21:52 [facility] 04/09 20:29 Order name: CT Chest For PE Angio; Complete Time: 21:52 [facility] 04/09 21:58 Order name: Urine Dipstick--Ancillary (enter results) ms 04/09 20:12 Order name: EKG; Complete Time: 20:12 [facility] 04/09 20:12 Order name: Cardiac monitoring; Complete Time: 20:27 [facility] 04/09 20:12 Order name: EKG - Nurse/Tech; Complete Time: 20:27 [facility] 04/09 20:12 Order name: IV Saline Lock; Complete Time: 20:27 [facility] 04/09 20:12 Order name: Labs collected and sent; Complete Time: 20:27 [facility] 04/09 20:12 Order name: O2 Per Protocol; Complete Time: 20:27 [facility] 04/09 20:12 Order name: O2 Sat Monitoring; Complete Time: 20:27 [facility] 04/09 20:12 Order name: Urine Dipstick-Ancillary (obtain specimen); Complete Time: 21:35 kdr Administered Medications: 20:41 Drug: morphine 4 mg Route: IVP; Site: right antecubital; bp 22:02 Follow up: Response: No adverse reaction bp 20:41 Drug: Zofran 4 mg Route: IVP; Site: right antecubital; bp 22:02 Follow up: Response: No adverse reaction bp Disposition: 04/09/18 21:58 Hospitalization ordered by Es Lutz for Observation. Preliminary diagnosis is Chest pain, unspecified. - Bed requested for Telemetry/MedSurg (observation). - Status is Observation. bp - Condition is Fair. - Problem is new. - Symptoms have improved. UTI on Admission? No Signatures: Dispatcher [employer] EDMS Chante Mcmillan RN RN kl Sanaz Molina RN RN aa1 Troy Edgar MD MD kdr Júnior Morrell RN RN bp Corrections: (The following items were deleted from the chart) 22:30 21:58 Hospitalization Ordered by Es Lutz MD for Observation. Preliminary kl diagnosis is Chest pain, unspecified. Bed requested for Telemetry/MedSurg (observation). Status is Observation. Condition is Fair. Problem is new. Symptoms have improved. UTI on Admission? No. kdr 22:47 22:30 04/09/2018 21:58 Hospitalization Ordered by Es Lutz MD for Observation. bp Preliminary diagnosis is Chest pain, unspecified. Bed requested for Telemetry/MedSurg (observation). Status is Observation. Condition is Fair. Problem is new. Symptoms have improved. UTI on Admission? No. kl
--- NOTE | 2018-04-09 22:48 | ER ---
Nurse's Notes 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 Reports pain is int and was 8/10 at it's worst. Denies any other symptoms. Transition of care: patient was not received from another setting of care. Onset of symptoms was April 09, 2018. Risk Assessment: Do you want to hurt yourself or someone else? Patient reports no desire to harm self or others. Initial Sepsis Screen: Does the patient meet any 2 criteria? No. Patient's initial sepsis screen is negative. Does the patient have a suspected source of infection? No. Patient's initial sepsis screen is negative. Care prior to arrival: None. 20:10 Method Of Arrival: Ambulatory aa1 20:10 Acuity: SHAMAR 3 aa1 Triage Assessment: 20:10 General: Appears in no apparent distress. comfortable, Behavior is calm, cooperative, aa1 appropriate for age. Pain: Pain currently is 0 out of 10 on a pain scale. Historical: - Allergies: 20:38 PENICILLINS; aa1 20:38 PILOCARPINE; aa1 - Home Meds: 20:38 celecoxib 200 mg Oral cap [Active]; gabapentin 300 mg Oral cap [Active]; Methotrexate aa1 (Anti-Rheumatic) Oral [Active]; montelukast 10 mg Oral tab 1 tab once daily [Active]; pantoprazole 40 mg Oral TbEC 1 tab once daily [Active]; prednisone 5 mg Oral tab once daily [Active]; ropinirole 1 mg Oral tab [Active]; Eliquis 5 mg oral tab 1 tab 2 times per day [Active]; metoprolol tartrate 25 mg Oral tab 1 tab once daily [Active]; Trilogy inhaler daily [Active]; venlafaxine 150 mg oral tr24 1 tab once daily [Active]; Abilify oral oral every other day [Active]; Actos Oral [Active]; Remicade 100 mg intravenous solr [Active]; - PMHx: 20:38 Asthma; Chronic pain; Rheumatoid Arthritis; Sleep Apnea; SVT; Depression; PE; DVT; RLS; aa1 Gastric Reflux; - PSHx: 20:38 Hysterectomy; laminectomy; neuro stimulator; aa1 - Immunization history:: Pneumococcal vaccine is up to date, Flu vaccine is up to date. - Social history:: Smoking status: Patient/guardian denies using tobacco. - Ebola Screening: : No symptoms or risks identified at this time. Screenin:27 Abuse screen: Denies threats or abuse. Denies injuries from another. Nutritional bp screening: No deficits noted. Tuberculosis screening: No symptoms or risk factors identified. Fall Risk None identified. Assessment: 20:15 General: Appears in no apparent distress. uncomfortable, obese, Behavior is bp cooperative, appropriate for age, anxious. Pain: Complains of pain in mid-sternal area Pain does not radiate. Pain began gradually. Neuro: Level of Consciousness is awake, alert, obeys commands, Oriented to person, place, time, situation, Appropriate for age. Cardiovascular: Rhythm is sinus rhythm. Respiratory: Airway is patent Respiratory effort is even, unlabored, Respiratory pattern is regular, symmetrical. GI: No signs and/or symptoms were reported involving the gastrointestinal system. : No signs and/or symptoms were reported regarding the genitourinary system. EENT: No deficits noted. Derm: No deficits noted. Musculoskeletal: Circulation, motion, and sensation intact. Range of motion: intact in all extremities. 21:15 Reassessment: CT PENDING, VS STABLE ON MONITOR, ACUTE S/S RELIEVED AT THIS TIME. bp 21:40 Reassessment: PT RETURNED FROM CT. ALL CURRENT ORDERS COMPLETED, VS STABLE ON MONITOR. bp RESULTS PENDING. 22:30 Reassessment: ADMIT IN PROCESS, VS STABLE ON MONITOR. bp Vital Signs: 20:10 BP 138 / 74; Pulse 83; Resp 18; Temp 98.6; Pulse Ox 98% on R/A; Weight 104.33 kg; aa1 Height 5 ft. 6 in. (167.64 cm); Pain 0/10; 21:15 BP 132 / 72; Pulse 81; Resp 13; Pulse Ox 97% ; bp 22:30 BP 101 / 76; Pulse 75; Resp 21; Pulse Ox 96% ; bp 20:10 Body Mass Index 37.12 (104.33 kg, 167.64 cm) aa1 ED Course: 20:05 Patient arrived in ED. am2 20:05 Júnior Goncalves MD is Private Physician. am2 20:10 Arm band placed on right wrist. Patient placed in an exam room, on a stretcher. aa1 20:11 Troy Edgar MD is Attending Physician. kdr 20:20 Patient maintains SpO2 saturation greater than 95% on room air. aa1 20:26 Júnior Morrell RN is Primary Nurse. bp 20:26 Inserted saline lock: 20 gauge in right antecubital area, using aseptic technique. bp Blood collected. 20:27 Triage completed. aa1 20:27 Patient has correct armband on for positive identification. Placed in gown. Bed in low bp position. Call light in reach. Side rails up X2. Adult w/ patient. monitor worker on. Pulse ox on. NIBP on. 20:46 Radiology exam delayed due to lab results not completed at this time. (BUN/Creatinine). cw1 20:57 XRAY Chest (1 view) In Process Unspecified. EDMS 20:57 X-ray completed. Portable x-ray completed in exam room. Patient tolerated procedure tm4 well. 21:13 CT completed. Patient tolerated procedure well. Patient moved back from CT. cw1 21:14 CT Chest For PE Angio In Process Unspecified. EDMS 21:57 Es Lutz MD is Hospitalizing Provider. kdr 22:35 No provider procedures requiring assistance completed. Patient admitted, IV remains in aa1 place. Administered Medications: 20:41 Drug: morphine 4 mg Route: IVP; Site: right antecubital; bp 22:02 Follow up: Response: No adverse reaction bp 20:41 Drug: Zofran 4 mg Route: IVP; Site: right antecubital; bp 22:02 Follow up: Response: No adverse reaction bp Outcome: 21:58 Decision to Hospitalize by Provider. kdr 22:46 Admitted to Tele accompanied by tech, family with patient, via wheelchair, room 402, bp with chart, Report called to EUSEBIO ALARCON 22:46 Condition: stable 22:46 Instructed on the need for admit. 22:47 Patient left the ED. bp Signatures: Dispatcher [employer] EDMS Sanaz Molina RN RN aa1 Troy Edgar MD MD kdr Bre Escamilla tm4 Nikko, Crystal cw1 Franca Jimenez am2 Júnior Morrell, RN RN bp
[2018-04-09] MEDS ORDERED: APIXABAN 5 MG TABLET PO SCH (23:00)
[2018-04-09] MEDS ORDERED: ONDANSETRON 4 MG/2 ML VIAL IV PRN (23:09)
[2018-04-09] MEDS ORDERED: ACETAMINOPHEN 500 MG TAB PO PRN (23:09)
[2018-04-10] MEDS: APIXABAN 5 MG TABLET PO SCH ×2 (00:25→09:53)
[2018-04-10 04:11] LABS: Absolute Lymphocytes (CBC) 3.2 K/uL (0.7-4.9); Absolute Monocytes 0.8 K/uL (0.1-1.3); Absolute Neutrophil 5.7 K/uL (1.8-8.0); Basophils % 1.1 % (0-1.3); Eosinophils % 2.4 % (0-4.4); Hematocrit 33.7 % (36.0-45.0); Lymphocytes % 31.5 % (15.3-44.8); MCH 31.2 pg (27.0-35.0); MCV 90.9 fL (80-100); MPV 9.8 fL (7.6-11.3); Monocytes % 8.1 % (3.3-12.3)
[2018-04-10 04:33] LABS: Potassium 3.9 mmol/L (3.5-5.1)
--- NOTE | 2018-04-10 06:48 | EKG ---
Test Date: 2018-04-09 Test Time: 20:11:32 Tobacco Warehouse Agent: GISEL MEASUREMENT RESULTS: Intervals: Rate: 88 OK: 150 QRSD: 84 QT: 380 QTc: 459 [place]: P: 53 OK: 150 QRS: 11 T: 60 INTERPRETIVE STATEMENTS: Normal sinus rhythm Normal ECG Compared to ECG 12/26/2017 12:06:48 No significant changes Electronically Signed On 04-10-18 06:47:59 CDT by Juan Rivera
[2018-04-10] MEDS ORDERED: METOPROLOL XL 25 MG TAB PO SCH (09:00)
[2018-04-10] MEDS ORDERED: PANTOPRAZOLE 40MG TABLET PO SCH (09:00)
[2018-04-10] MEDS ORDERED: predniSONE 5 MG TAB PO SCH (09:00)
[2018-04-10] MEDS ORDERED: ASPIRIN EC 81 MG TAB PO SCH (09:00)
[2018-04-10] MEDS ORDERED: REGADENOSON 0.4 MG/5 ML SYR IV ONE (10:15)
--- NOTE | 2018-04-10 11:10 | EKG ---
Test Date: 2018-04-10 Test Time: 08:33:27 Vamp Stitcher: HANS MEASUREMENT RESULTS: Intervals: Rate: 91 IN: 154 QRSD: 82 QT: 362 QTc: 445 [place]: P: 51 IN: 154 QRS: 16 T: 52 INTERPRETIVE STATEMENTS: Normal sinus rhythm Normal ECG Compared to ECG 04/09/2018 20:11:32 No significant changes Electronically Signed On 04-10-18 11:09:49 CDT by Elijah Gregorio
--- NOTE | 2018-04-10 11:40 | CON ---
Identification: A 72-year-old woman. Chief Complaint: Chest pain. History Of Present Illness: Mrs. Gibson is 72. She has rheumatoid arthritis since about 2008. She has hypertension, diabetes. 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 About 3 months ago, she had an acute pulmonary embolus associated with a road trip postop and she rem ains on apixaban. She has also had supraventricular tachycardia. She has never had any myocardial i nfarction or stroke. She uses no tobacco. She does not have dyslipidemia. Outpatient Medications: Trilogy, Ellipta, Singulair, gabapentin, venlafaxine, ropinirole, Protonix, prednisone, metoprolol, pioglitazone, Abilify, celecoxib, and Eliquis 5 b.i.d. Allergies: SHE IS ALLERGIC TO PENICILLIN AND PILOCARPINE. Physical Examination: Vital Signs: 5 feet 6 inches, 238 pounds. General: Alert, oriented, pleasant, not in distress. Lungs: Clear. Heart: within normal limits. No friction rub. Abdomen: Soft. Extremities: Mild edema. Distal pulses palpable. The EKG shows sinus rhythm and it is normal. It is unchanged from December 2017. All of her cardiac en zymes are normal. Impression: This is noncardiac chest pain. It does not sound like pericarditis or pleurisy either, but a nonspecific gastrointestinal pain, probably esophageal. Plan: I recommend, she have a pharmacologic nuclear stress test and echo. If those are normal, she could be discharged for an outpatient workup for the cause for pain. LUZMARIA/RICHIE Voice ID: [id number] Report ID: [id number]
--- NOTE | 2018-04-10 11:51 | P.SSS ---
Patient History Date of Service: 04/10/18 Reason for admission: chest pain History of Present Illness: Ms Gibson is a 72 years old woman with history of PE, HTN, CAD, SVT episode, Asthma RA on DMARD's, sleep apnea, who this afternoon, suddenly start with chest pain in substernal area. She described the pain as stubbing, not radiated , come and go, lasting for 30 seconds. Intensity 7/10. She denied nausea, vomiting, SOB, dizziness, palpitations, or diaphoresis episode associated with the pain. She has never had this kind of pain in the past. EKG shows no ST-T abnormalities. Initial troponin I is negative, CXR no acute abnormalities, CTA chest no PE or infiltrate, however, it is remarkable for bilateral pulmonary node about 7 mm that needs to have further follow up with a new image. Allergies Penicillins Allergy (Verified 04/10/18 00:58) Unknown PILOCARPINE Allergy (Uncoded 04/10/18 00:58) Unknown Home Medications: Fluticasone/Umeclidin/Vilanter [Trelegy Ellipta 100-62.5-25] 1 puff IH DAILY 11/13 Gabapentin [Neurontin*] 300 mg PO BEDTIME 12/26/17 Montelukast Sodium [Singulair] 10 mg PO DAILY 12/26/17 Pantoprazole [Protonix Tab*] 40 mg PO BEDTIME 12/26/17 Ropinirole HCl [Requip*] 1 mg PO BEDTIME 12/26/17 Venlafaxine HCl [Venlafaxine HCl ER] 150 mg PO DAILY 12/26/17 predniSONE [Prednisone*] 5 mg PO DAILY 12/27/17 Metoprolol Succinate [Toprol Xl*] 25 mg PO DAILY #30 tab 12/28/17 ARIPiprazole [Abilify*] 5 mg PO SEECOM 04/10/18 Apixaban [Eliquis] 5 mg PO BID 04/10/18 Celecoxib [Celebrex] 200 mg PO DAILY 04/10/18 Pioglitazone [Actos*] 30 mg PO DAILY 04/10/18 - Past Medical/Surgical History Has patient received pneumonia vaccine in the past: Yes Diabetic: No -: R. Athritis -: Asthma -: Sleep Apnea -: Restless Leg Syndrome -: SVT -: CAD -: PE -: Hysterectomy () -: Laminectomy (2008) -: Anterior posterior repair (2009) -: Neuro Stimulator Insertion (2016) -: Removal Stimular (2017) - Family History Father -: Hypertension, Stroke Mother -: Heart disease, Hypertension, Cancer Notes: Vulvar CA Sister Notes: parkinsons disease Brother Notes: step brother has diabetes - Social History Smoking Status: Never smoker Alcohol use: No CD- Drugs: No Caffeine use: Yes Place of Residence: Home Review of Systems General: As per HPI Physical Examination - Vital Signs Temperature: 96.8 F Blood Pressure: 114/48 Pulse: 78 Respirations: 18 Pulse Ox (%): 90 - Physical Exam General: Alert, In no apparent distress HEENT: Atraumatic, PERRLA, Mucous membr. moist/pink, EOMI, Sclerae nonicteric Neck: Supple, 2+ carotid pulse no bruit, No LAD, Without JVD or thyroid abnormality Respiratory: Clear to auscultation bilaterally, Normal air movement Cardiovascular: Regular rate/rhythm, Normal S1 S2 Gastrointestinal: Normal bowel sounds, No tenderness Musculoskeletal: No tenderness Integumentary: No rashes Neurological: Normal gait, Normal speech, Normal strength at 5/5 x4 extr, Normal tone, Normal affect Lymphatics: No axilla or inguinal lymphadenopathy - Studies Laboratory Data (last 24 hrs) 04/09/18 20:20: PT 15.7 H, INR 1.33, APTT 34.6 04/09/18 20:20: WBC 9.9, Hgb 13.0, Hct 38.7, Plt Count 229 04/09/18 20:20: Sodium 142, Potassium 3.9, BUN 14, Creatinine 1.00, Glucose 97, Magnesium 2.4, Total Bilirubin 0.3, AST 22, ALT 36, Alkaline Phosphatase 97 - Diagnosis (Problem(s)) (1) Chest pain Onset Date: 04/10/18 Current Visit: Yes Status: Resolved Qualifiers: Chest pain type: other chest pain Qualified Code(s): R07.89 - Other chest pain; R07.8 - Other chest pain (2) History of pulmonary embolism Onset Date: 04/10/18 Current Visit: Yes Status: Chronic (3) Obesity Onset Date: 04/10/18 Current Visit: Yes Status: Chronic Qualifiers: Obesity type: unspecified obesity type Obesity classification: unspecified obesity classification Serious obesity comorbidity presence: unspecified whether serious comorbidity present Qualified Code(s): E66.9 - Obesity, unspecified (4) Rheumatoid arthritis Onset Date: 04/10/18 Current Visit: Yes Status: Chronic Qualifiers: Rheumatoid arthritis location: unspecified site Rheumatoid factor presence : unspecified presence Qualified Code(s): M06.9 - Rheumatoid arthritis, unspecified (5) Asthma Onset Date: 12/29/17 Current Visit: No Status: Chronic Qualifiers: Asthma severity: mild Asthma persistence: intermittent Asthma complication type: uncomplicated Qualified Code(s): J45.20 - Mild intermittent asthma, uncomplicated (6) Depression Onset Date: 12/29/17 Current Visit: No Status: Chronic Qualifiers: Depression Type: major depressive disorder Major depression recurrence: unspecified whether recurrent Active/Remission status: in full remission Qualified Code(s): F32.5 - Major depressive disorder, single episode, in full remission Treatment Summary: Overall patient remained stable while here in the hospital. Patient was admitted to the hospital for chest pain ACS rule out. Cardiology was consulted who recommended a stress test and an echocardiogram. Patient's stress test and echocardiogram was negative and patient was thus discharged home under stable condition. Patient's chest pain was most likely secondary to esophageal reflux. Patient was asked to continue taking Protonix and follow up for her primary care doctor in about 1-2 days - Disposition Disposition: ROUTINE DISCHARGE Condition: GOOD Diet: Regular Activity: Ad alf
--- NOTE | 2018-04-10 15:09 | ECHO ---
HEIGHT: 5 ft 6 in WEIGHT: 238 lb 14.4 oz DATE OF STUDY: 04/10/[address]: Es Espinosa MD 2-DIMENSIONAL: YES M.MODE: YES DOPPLER: YES COLOR FLOW: YES TDS: NO PORTABLE: NO DEFINITY: NO BUBBLE STUDY: NO DIAGNOSIS: CHEST PAIN CARDIAC HISTORY: CATHERIZATION: NO SURGERY: NO PROSTHETIC VALVE: NO PACEMAKER: NO MEASUREMENTS (cm) DIASTOLIC (NORMALS) SYSTOLIC (NORMALS) IVSd 1.0 (0.6-1.2) LA Diam 3.4 (1.9-4.0) LVEF 61% LVIDd 3.7 (3.5-5.7) LVIDs 2.5 (2.0-3.5) %FS 32% LVPWd 1.0 (0.6-1.2) Ao Diam 2.2 (2.0-3.7) 2 DIMENSIONAL ASSESSMENT: RIGHT ATRIUM: NORMAL LEFT ATRIUM: NORMAL RIGHT VENTRICLE: NORMAL LEFT VENTRICLE: NORMAL TRICUSPID VALVE: NORMAL MITRAL VALVE: NORMAL PULMONIC VALVE: NORMAL AORTIC VALVE: NORMAL PERICARDIAL EFFUSION: NONE AORTIC ROOT: NORMAL LEFT VENTRICULAR WALL MOTION: DOPPLER/COLOR FLOW: MILD MITRAL AND TRICUSPID REGURGITATION. NORMAL RIGHT VENTRICULAR SYSTOLIC PRESSURE. COMMENTS: NORMAL 2D ECHO. MILD MITRAL AND TRICUSPID REGURGITATION. NORMAL RIGHT VENTRICULAR SYSTOLIC PRESSURE. TECHNOLOGIST: SISSY SOLIZ
[2018-04-10] MEDS ORDERED: ATORVASTATIN 10 MG TAB PO SCH (21:00)
[2018-04-17] MEDS ORDERED: APIXABAN 5 MG TABLET PO SCH (09:00)
== END 2018-04-10 16:10 | disposition home or self-care (01) ==
LOC: ER 20:04 → ERHOLD 21:59 → 4TH 22:33
PROVIDERS: ADMIT Internal Medicine; ATTEND Internal Medicine
DX: R07.9 Chest pain, unspecified (principal); I10 Essential (primary) hypertension; I25.10 Atherosclerotic heart disease of native coronary artery without angina pectoris; G25.81 Restless legs syndrome; E66.9 Obesity, unspecified; Z68.38 Body mass index [BMI] 38.0-38.9, adult; M06.9 Rheumatoid arthritis, unspecified; J45.20 Mild intermittent asthma, uncomplicated; F32.9 Major depressive disorder, single episode, unspecified; Z86.711 Personal history of pulmonary embolism; Z88.0 Allergy status to penicillin
CPT/HCPCS: 36415; 71045; 71275; 80048 ×2; 80061; 80076; 81003; 82550; 82553; 83735; 83880; 84484 ×4; 85025 ×2; 85610; 85730; 93005 ×2; 93306; 96374; 96375; 99285; G0378 ×2; J2405; Q9967; J2785; J7512

== ENCOUNTER 2020-05-04 16:39 | Emergency (ER) | payer OTHER, BC ==
--- OUTSIDE RECORDS SUMMARY | 2020-05-04 16:42 | XMS REPORT | Clinical Summary ---
:1945 Author Organization [facility] Address [address] [place] [address] Care Team Providers Name Role Phone Yunior Goncalves Primary Care Provider Allergies Active Allergy Reactions Severity Noted Date Comments Penicillins 10/05/2017 Pilocarpine 10/06/2017 Medications Medication Sig Dispensed Refills Start Date End Date Status rOPINIRole (REQUIP) Take 1 mg by mouth 0 Active 1 MG tablet daily. estradiol (ESTRACE) Take 1 mg by mouth 0 Active 1 MG tablet daily. gabapentin Take 300 mg by mouth 0 Active (NEURONTIN) 300 MG every other day. capsule gabapentin Take 600 mg by mouth 0 Active (NEURONTIN) 600 MG every other day. tablet pantoprazole Take 40 mg by mouth 0 Active (PROTONIX) 40 MG daily. tablet celecoxib (CELEBREX) Take 200 mg by mouth 0 Active 200 MG capsule daily. nebivolol (BYSTOLIC) Take 5 mg by mouth 0 Active 5 MG tablet daily. montelukast Take 10 mg by mouth 0 Active (SINGULAIR) 10 mg nightly. tablet predniSONE Take 10 mg by mouth 0 Active (DELTASONE) 10 MG daily. tablet folic acid (FOLVITE) Take 1 mg by mouth 0 Active 1 MG tablet daily. cholecalciferol, Take 10,000 Units by 0 Active vitamin D3, 1,000 mouth daily. unit capsule INFLIXIMAB (REMICADE Inject intravenously 0 Active IV) every 7 days. methocarbamol Take 1 tablet (750 60 tablet 0 10/10/2017 Active (ROBAXIN) 750 MG mg total) by mouth 4 tablet (four) times daily as needed for up to 60 doses. Active Problems Problem Noted Date Anemia 10/10/2017 Hypokalemia 10/10/2017 Bacteremia due to Staphylococcus 10/10/2017 Red man syndrome 10/10/2017 Neuropathic pain 10/10/2017 Rheumatoid arthritis 10/10/2017 Superficial venous thrombosis of upper extremity, left 10/10/2017 Hardware complicating wound infection 10/05/2017 Social History Tobacco Use Types Packs/Day Years Used Date Never Assessed Sex Assigned at Date Recorded Not on file Job Start Date Occupation Industry Not on file Not on file Not on file Travel History Travel Start Travel End No recent travel history available. Last Filed Vital Signs Not on file Plan of Treatment Not on file Results Not on fileafter 05/04/2019 Insurance Payer Benefit Plan / Subscriber ID Type Phone Address Group MEDICARE MEDICARE A B xxxxxxxxxxx Medicare BLUE CROSS/BLUE BCBS INDEMNITY [place] xxxxxxxxxxxx PPO [address] [place] [address] Advance Directives For more information, please contact:[facility], [place] [phone] Code Status Date Activated Date Inactivated Comments Full Code 10/05/2017 11:51 AM 10/10/2017 10:31 PM This code status was determined by: Patient
--- OUTSIDE RECORDS SUMMARY | 2020-05-04 16:42 | XMS REPORT | Clinical Summary ---
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 COVID-19 Exposure Response Date Recorded In the last month, have you been in contact with No / Unsure 05/02/2020 11:06 AM CDT someone who was confirmed or suspected to have Coronavirus / COVID-19? Last Filed Vital Signs Vital Sign Reading Time Taken Comments Blood Pressure - - Pulse - - Temperature - - Respiratory Rate - - Oxygen Saturation - - Inhaled Oxygen Concentration - - Weight 113 kg (250 lb) 05/10/2019 11:18 AM CDT Height - - Body Mass Index - - Plan of Treatment Date Type Specialty Care Team Description 05/16/2020 Appointment Radiology Crow Calderon M D [address] [place] [address] [phone] 05/16/2020 Appointment Radiology Crow Calderon M D [address] [place] [address] [phone] Health Maintenance Due Date Last Done Comments BREAST CANCER SCREENING 1996 COLONOSCOPY SCREENING 1996 SHINGLES VACCINES (#1) 1996 65+ PNEUMOCOCCAL VACCINE (1 of 2 - PCV13) 01/01/2012 INFLUENZA VACCINE 04/26/2020 Procedures Procedure Name Priority Date/Time Associated Diagnosis Comme nts MRI LUMBAR SPINE W Routine 05/10/2019 11:52 Low back pain, Res ults for this WO CONTRAST AM CDT unspecified back procedure a re in pain laterality, the results unspecified section. chronicity, with sciatica presence unspecified ESTIMATED GFR Routine 05/10/2019 10:38 Results fo r this AM CDT procedure are i n the results section. POC CREATININE Routine 05/10/2019 10:38 Results f or this AM CDT procedure are i n the results section. after 05/04/2019 Results MRI Lumbar Spine W Wo Contrast (05/10/2019 11:52 AM CDT) Specimen Narrative Performed At This result has an attachment that is no t available. EXAMINATION: MRI LUMBAR SPINE W WO CONTRAST [facility] CLINICAL HISTORY: M54.5 Low back pain, m54.5 COMPARISON: MRI L-spine 04/06/2018. TECHNIQUE: Multiplanar multisequence non enhanced and contrast enhanced MRI examination was performed of the lumbar spine. FINDINGS: There are 5 non-rib bearing lumbar type vertebrae, the lowest labeled L5 in this report as identified by the lumbosacral angle and iliolumbar ligaments. Interval progression of disc degeneration at L4-L5 when compared to the prior MRI from 2018, including moderate left paracentral broa d-based disc protrusion as detailed below. There is 3 mm anterolisthesis L4 on L5, unchanged. No abnormal marrow edema or enhancement identified. No suspicious os seous lesions. Vertebral body heights are preserved. Conus medullaris terminates appropriatel y at the L1 level. No abnormal T2 hyperintense intramedullary signal or enhancement identified. The cauda equina nerve roots are symmetric and normal in appearanc e. No abnormal thickening, clumping or enhancement identified. Evaluation of the visualized soft tissue s demonstrates no mass, adenopathy or aneurysm. No hydronephrosis. Axial images through the disc spaces demonstrate the f ollowing: L1-L2: No significant posterior disc dis ease, spinal canal, subarticular zone, or neural foraminal stenosis. L2-L3: No significant posterior disc dis ease, spinal canal, subarticular zone, or neural foraminal stenosis. L3-L4: No significant posterior disc dis ease, spinal canal, subarticular zone, or neural foraminal stenosis. L4-L5: Interval left paracentral broad-b ased disc extrusion measuring 0.7 x 1.6 x 1.3 cm [AP by TR by CC), image 9 of series 3. There is resultant marked left subarticular zone and neural foraminal sten osis, including contact of the exiting L4 nerve root on the left, image 13 of series 7. Spin al canal is decompressed through left hemilaminotomy. Mild right neural foraminal narrowing is noted secondary to bulging disc material and facet arthrosis. L5-S1: No significant posterior disc dis ease, spinal canal, subarticular zone, or neural foraminal stenosis. Evaluation of other visualized levels de monstrates no significant posterior disc disease, spinal canal, subarticular zone, or neural foraminal stenosis. IMPRESSION: Healed postoperative changes compatible with previous L4-L5 left hemilaminotomy, however there is newly appearing left paracentral broad-based disc extrusion measuring up to 1.6 cm which results in marked left subarticular zone and neural foraminal stenosis including contact of the exiting L4 nerve adonis t on the left. [facility]-[id number] Procedure Note Hm Interface, Radiology Results - 05/10/2019 12:14 PM CDT EXAMINATION: MRI LUMBAR SPINE W WO CONTRAST CLINICAL HISTORY: M54.5 Low back pain, m 54.5 COMPARISON: MRI L-spine 04/06/2018. TECHNIQUE: Multiplanar multisequence non enhanced and contrast enhanced MRI examination was performed of the lumbar spine. FINDINGS: There are 5 non-rib bearing lumbar type vertebrae, the lowest labeled L5 in this report as identified by the lumbosacral angle and iliolumbar ligaments. Interval progression of disc degeneration at L4-L5 when compared to the prior MRI from 2018, including moderate left paracentral broa d-based disc protrusion as detailed below. There is 3 mm anterolisthesis L4 on L5, unchanged. No abnormal marrow edema or enhancement identified. No suspicious osseous lesions. Vertebral body heights are pres erved. Conus medullaris terminates appropriatel y at the L1 level. No abnormal T2 hyperintense intramedullary signal or enhancement identified. The cauda equina nerve roots are symmetric and normal in appearance. No abnormal thickening, clumping or enhancement identified. Evaluation of the visualized soft tissue s demonstrates no mass, adenopathy or aneurysm. No hydronephrosis. Axial images through the disc spaces dem onstrate the following: L1-L2: No significant posterior disc dis ease, spinal canal, subarticular zone, or neural foraminal stenosis. L2-L3: No significant posterior disc dis ease, spinal canal, subarticular zone, or neural foraminal stenosis. L3-L4: No significant posterior disc dis ease, spinal canal, subarticular zone, or neural foraminal stenosis. L4-L5: Interval left paracentral broad-b ased disc extrusion measuring 0.7 x 1.6 x 1.3 cm [AP by TR by CC), image 9 of series 3. There is resultant marked left subarticular zone and neural foraminal stenosis, including contact of the exiting L4 nerve root on the left, image 13 of series 7. Spin al canal is decompressed through left hemilaminotomy. Mild right neural foraminal narrowing is noted secondary to bulging disc material and facet arthrosis. L5-S1: No significant posterior disc dis ease, spinal canal, subarticular zone, or neural foraminal stenosis. Evaluation of other visualized levels de monstrates no significant posterior disc disease, spinal canal, subarticular zone, or neural foraminal stenosis. IMPRESSION: Healed postoperative changes compatible with previous L4-L5 left hemilaminotomy, however there is newly appearing left paracentral broad-based disc extrusion measuring up to 1.6 cm which results in marked left subarticular zone and neural foraminal stenosis including contact of the exitin g L4 nerve root on the left. [facility]-[id number] Performing Organization Address City/State/Zipcode Phone Number [facility] [address] [place] [address] Estimated GFR (05/10/2019 10:38 AM CDT) Estimated GFR 64 mL/min/1.73 [facility] Comment: m2 [facility]olzer hospitalory Units Interpretation [facility] G1 >=90 Normal or high CENTER G2 60-89 Mildly decreased G3a 45-59 Mildly to moderately decreas ed G3b 30-44 Moderately to severely decre ased G4 15-29 Severely decreased G5 <15 Kidney failure The eGFR was calculated using the Chronic Kidney Disea se Epidemiology Collaboration (CKD-EPI) equation. Interpretation is based on recommendations of the National Kidney Foundation-Kidney Disease Outcomes [place] lity Initiative (NKF-KDOQI) published in 2014. Specimen Blood Performing Organization Address City/State/Zipcode Phone Number DEPARTMENT OF PATHOLOGY AND [address] [place] [address] GENOMIC MEDICINE, [facility] EMERGENCY CARE [facility] [address] [place], [place] [id number] [place] [address] POC creatinine (05/10/2019 10:38 AM CDT) Pathologist [facility] Department POC creatinine 0.9 0.5 - 0.9 [facility] Comment: mg/dl [facility] Meter ID: [id number] EMERGENCY CARE Financial Underwriter: Arcenio Goncalves [facility] Specimen Blood Performing Organization Address City/State/Zipcode Phone Number DEPARTMENT OF PATHOLOGY AND 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
--- OUTSIDE RECORDS SUMMARY | 2020-05-04 16:43 | XMS REPORT | Continuity of Care Document ---
:1945 Author Organization [facility] t Address [address] [place] [address] Care Team Providers Name Role Phone Yunior Goncalvse Primary Care Physician Kvng CASE Attending Clinician Lisa Person MD Attending Clinician JADE SHAH Attending Clinician Unavailable JADE SHAH Admitting Clinician Unavailable Payers Payer Name Policy Policy Number Effective Expiration Source Type Date Date MEDICAREMEDICARE PART xxxxxxxxxxx 2011 [place] A AND 00:00:00 Restoration[id number] BCBS COMMERCIALBCBS xxxxxxxxxxxx 2012 Deanna sto MEDICARE 00:00:00 Restorationist SUPPLEMENTxxxxxxxxxxx x1-[facility] ercial Problems Condition Condition Condition Status Onset Resolution Last Treating Co mments Source Name Details Category Date Date Treatment Clinician Date Anemia Anemia Disease Active [facility] Hypokalemi Hypokalemi Disease Active [facility] a [facility] Bacteremia Bacteremia Disease Active [facility] due to due to 1-15 [facility] - Staphyloco Staphyloco 00:00: Me dical ccus ccus 00 Center Red man Red man Disease Active [facility] syndrome syndrome 1-15 [facility] - 00:00: Medical 00 [place] Neuropathi Neuropathi Disease Active [facility] c pain c pain 1-15 [facility] - 00:00: Medical 00 [place] Rheumatoid Rheumatoid Disease Active [facility] arthritis arthritis 1-15 [facility] - 00:[facility]: Medical 00 [place] Superficia Superficia Disease Active [facility]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 [facility] - thrombosis thrombosis 00:00: Az dical of upper of upper 00 [place] extremity, extremity, left left Hardware Hardware Disease [facility] complic[facility] complicati 1-10 Sulema kes - ng wound ng wound 00:00: Medica l infection infection 00 [facility] er Allergies, Adverse Reactions, Alerts Allergy Allergy Status Severity Reaction(s) Onset Inactive Treating Comm ents Source Name Type Date Date Clinician Pilocarbrandy Propensi Active [facility] ty to 1-11 [facility] - adverse 00:00: Medical reaction 00 [place] s Penicill Propensi Active [facility] ins [facility] to 110 [facility] - adverse 00:00: Medical reaction 00 [place] s Social History Social Habit Start Date Stop Date Quantity Comments Source Sex Assigned At Deanna Peck Exposure to SARS-CoV-2 Not sure Cosme Peck (event) Medications Ordered Filled Start Stop Current Ordering Indication Dosage Frequency Signature Comments Components Source Medication Medication Date Date Medication? Clinician (SIG) Name Name methocarbam Yes 750mg Take [address] [facility] ol 1-15 tablet [facility] - (ROBAXIN) 00:00: (750 mg Medic al 750 MG 00 total) by [place] tablet mouth 4 (four) times daily as needed for up to 60 doses. INFLIXIMAB Yes Inject [facility] (REMICADE -11 intravenou [facility] - IV) 06:27: sly every Medical 02 7 days. [place] folic acid Yes 1mg QD Take [address] (FOLVITE) 1 -11 by mouth [facility] - MG tablet 06:27: daily. Medica l 01 [place] cholecalcif Yes [id number] QD Take [facility] vimal, 1-11 10,000 [facility] - vitamin D3, 06:27: Units by Az dical 1,000 unit 01 mouth Center capsule daily. gabapentin Yes 600mg Take [address] (NEURONTIN) 1-11 mg by [facility] - 600 MG 06:24: mouth Medical tablet 17 every Center other day. pantoprazol 2018-0 Yes 40mg QD Take [address] [facility] e 1-11 by mouth [facility] - (PROTONIX) 06:24: daily. Medic al 40 MG 17 Center tablet celecoxib 2018-0 Yes 200mg QD Take [address] (CELEBREX) 1-11 mg by [facility] - 200 MG 06:24: mouth Medical capsule 17 daily. Center nebivolol 2018-0 Yes 5mg QD Take [address] [facility] [address] (BYSTOLIC) 1-11 by mouth [facility] - 5 MG tablet 06:24: daily. Medi holly 17 Center montelukast 2018-0 Yes 10mg QD Take [address] [facility] [address] (SINGULAIR) 1-11 by mouth [facility] - 10 mg 06:24: nightly. Medical tablet 17 Center predniSONE 20180 Yes 10mg QD Take [address] (DELTASONE) 1-11 by mouth [facility] - 10 MG 06:24: daily. Medical tablet 17 [place] rOPINIRole 20180 Yes 1mg QD Take [address] (REQUIP) 1 1-11 by mouth [facility] - MG tablet 06:24: daily. Medica l 16 [place] estradiol 20180 Yes 1mg QD Take [address] [facility] [address] (ESTRACE) 1 1-11 by mouth Luke s - MG tablet 06:24: daily. Medica l 16 [place] gabapentin 20180 Yes 300mg Take [address] (NEURONTIN) 1-11 mg by [facility] - 300 MG 06:24: mouth Medical capsule 16 every Center other day. Vital Signs Vital Name Observation Time Observation Value Comments Source Body weight 2019-05-10 11:18:00 113.399 kg Levi Peck Procedures Procedure Date / Time Performed Performing Clinician [facility] e MRI LUMBAR SPINE W WO 2019-05-10 11:52:11 Yunior Person CONTRAST POC CREATININE 2019-05-10 10:38:00 Yunior Person ESTIMATED GFR 2019-05-10 10:38:00 Yunior Person Plan of Care Planned Activity Planned Date Details Comments Source Future Scheduled 2020-04-26 INFLUENZA VACCINE Kriss Peck Test 00:00:00 [code = INFLUENZA VACCINE] Future Scheduled 2012-01-01 65+ PNEUMOCOCCAL Levi Peck Test 00:00:00 VACCINE (1 of 2 - PCV13) [code = 65+ PNEUMOCOCCAL VACCINE (1 of 2 - PCV13)] Future Scheduled 1996 BREAST CANCER Levi Marrufo thodist Test 00:00:00 SCREENING [code = BREAST CANCER SCREENING] Future Scheduled 1996 COLONOSCOPY SCREENING Ho mahad Restorationist Test 00:00:00 [code = COLONOSCOPY SCREENING] Future Scheduled 1996 SHINGLES VACCINES (#1) H heraclio Restorationist Test 00:00:00 [code = SHINGLES VACCINES (#1)] Results Test Description Test Time Test Comments Results Result Sourc e Comments MRI Lumbar Spine 2019-04-26 Hm Interface, [place] on W Wo Contrast 5 Radiology Results Meth odist 12:11:22 - 05/10/2019 12:14 PM CDTEXAMINATION: MRI LUMBAR SPINE W WO CONTRASTCLINICAL HISTORY: M54.5 Low back pain, m54.5COMPARISON: MRI L-spine 04/06/2018.TECHNIQUE: Multiplanar multisequence nonenhanced and contrast enhanced MRI examination was performed of the lumbar spine.FINDINGS:There are 5 non-rib bearing lumbar type vertebrae, the lowest labeled L5 in this report as identified by the lumbosacral angle and iliolumbar ligaments. Interval progression of disc degeneration at L4-L5 when compared to the prior MRI from 2018, including moderate left paracentral broad-based disc protrusion as detailed below. There is 3 mm anterolisthesis L4 on L5, unchanged. No abnormal marrow edema or enhancement identified. No suspicious osseous lesions. Vertebral body heights are preserved. Conus medullaris terminates appropriately at the L1 level. No abnormal T2 hyperintense intramedullary signal or enhancement identified. The cauda equina nerve roots are symmetric and normal in appearance. No abnormal thickening, clumping or enhancement identified.Evaluation of the visualized soft tissues demonstrates no mass, adenopathy or aneurysm. No hydronephrosis.Axial images through the disc spaces demonstrate the following:L1-L2: No significant posterior disc disease, spinal canal, subarticular zone, or neural foraminal stenosis.L2-L3: No significant posterior disc disease, spinal canal, subarticular zone, or neural foraminal stenosis.L3-L4: No significant posterior disc disease, spinal canal, subarticular zone, or neural foraminal stenosis.L4-L5: Interval left paracentral broad-based disc extrusion measuring 0.7 x 1.6 x 1.3 cm [AP by TR by CC), image 9 of series 3. There is resultant marked left subarticular zone and neural foraminal stenosis, including contact of the exiting L4 nerve root on the left, image 13 of series 7. Spinal canal is decompressed through left hemilaminotomy. Mild right neural foraminal narrowing is noted secondary to bulging disc material and facet arthrosis.L5-S1: No significant posterior disc disease, spinal canal, subarticular zone, or neural foraminal stenosis.Evaluation of other visualized levels demonstrates no significant posterior disc disease, spinal canal, subarticular zone, or neural foraminal stenosis.IMPRESSION: Healed postoperative changes compatible with previous L4-L5 left hemilaminotomy, however there is newly appearing left paracentral broad-based disc extrusion measuring up to 1.6 cm which results in marked left subarticular zone and neural foraminal stenosis including contact of the exiting L4 nerve root on the left.[id number] POC creatinine 2019-05-10 10:50:35 Test Item Value Reference Range Interpretation Comme [facility] POC creatinine (test code = 0.9 mg/dl 0.5-0.9 Meter ID: [id number]: Arcenio [id number]) Ivanna Sims MethodistEstimated [id number] 10:50:35 Test Item Value Reference Range Interpretation Comments Estimated GFR (test 64 mL/min/1.73 m2 [facility] Units code = 43714-3) Interpretati onG1 >=90 Normal or highG2 60-89 Mildly svhtrskhxH4o 45-59 Mildly to mode rately gzuvgticvL9a 30-44 Moderately to severely decreasedG4 15-29 Severely decre asedG5 <15 Kidn ey failureThe eGFR was calculated usin g the Chronic Kidney Disease Epidemiology Co llaboration (CKD-EPI) equat ion. Interpretation is based on recommendations of the National Kidney Foundation-Kidn ey Disease Outcomes Qualit y Initiative (NKF-KDOQI) pub lished in 2014. Levi PeckCT, CHEST, WITHOUT [id number] 12:37:00FINAL REPORT CT of the Chest dated 09/06/2018 CLINICAL INFORMATION: lung nodule, dvt Comment: Axial images of the chest were obtained from thoracic inlet to the upper abdomen without intravenous contrast. This exam was performed according to our departmental dose-optimization program, which includes automated exposure control, adjustment of the mA and/or kV according to patient size and/or use of interactive reconstruction technique. Heart is normal in size. Great vessels are unremarkable. No adenopathy in the mediastinum or perihilar region. Trachea and mainstem bronchi are patent. A 4 mm and 7 mm spiculated nodules are seen in the left lower lobe. A 7 mm spiculatednodule is seen in the right lower lobe. Minimal scarring seen in the right mid lobe. The rest of thelungs are clear. No mass lesion or airspace disease is noted. No interstitial disease or bronchiectasis is present. No pleural effusion or pleural based mass is seen. Visualized upper abdomen demonstrates no focal lesion. Impression: Nodular lesions in both lower lobes. Recommend further evaluation with CT of the chest in 3-6 months. Signed: Debbi Mancini Verified Date/Time: 09/06/2018 12:37:19 Reading Location: [address] Body Reading Room AFB CULTURE + [id number] 22:54:00 Test Item Value Reference Range Interpretation Comments CULTURE (BEAKER) (test No acid-fast bacilli code = 1095) isolated in 42 days AFB SMEAR (BEAKER) No acid fast bacilli (test code = 994) seen FUNGUS CULTURE + [id number] 09:24:00 Test Item Value Reference Range Interpretation Comments CULTURE (BEAKER) (test No fungus isolated in code = 1095) 28 days FUNGUS SMEAR (BEAKER) No fungi seen (test code = 1406) RAD, CHEST, 1 VIEW, NON [id number] 19:04:00Reason for exam:->picc line placement repeat stat [...] Mancini Verified Date/Time: 10/10/2017 19:04:22 Reading Location: [facility] [id number] Consult Reading Room RAD, CHEST, 1 VIEW, NON [id number] 18:56:00Reason for exam:->PICC LINE PLACEMENT Should this be performed at the bedside?->YesFINAL REPORT AP view of the chest dated 10/10/2017 COMPARISON: Same day CLINICAL INFORMATION: PICC LINE PLACEMENT Comment: Since prior examination, there is advancement of the right PICC line tip seen in the left brachiocephalic vein. The right PICC line should be partially withdrawn approximately 1-2 cm. No other changes are seen in the chest. Signed: Debbi Mancinieport Verified Date/Time: 10/10/2017 18:56:49 Reading Location: [facility] B1 [id number] Consult Reading Room BLOOD [id number] 17:00:00 Test Item Value Reference Range Interpretation Comments CULTURE (BEAKER) (test No growth in 5 days code = 1095) BLOOD [id number] 17:00:00 Test Item Value Reference Range Interpretation Comments CULTURE (BEAKER) (test No growth in 5 days code = 1095) ANAEROBIC [id number] 07:29:00 Test Item Value Reference Range Interpretation Comments CULTURE (BEAKER) (test No anaerobes isolated code = 1095) BASIC METABOLIC [id number] 05:26:00 Test Item Value Reference Range Interpretation Comments SODIUM (BEAKER) 142 meq/L 136-145 (test code = 381) POTASSIUM (BEAKER) 3.8 meq/L 3.5-5.1 (test code = 379) CHLORIDE (BEAKER) 108 meq/L 98-107 H (test code = 382) CO2 (BEAKER) (test 25 meq/L 22-29 code = 355) BLOOD UREA NITROGEN 7 mg/dL 7-21 (BEAKER) (test code = 354) CREATININE (BEAKER) 0.72 mg/dL 0.57-1.25 (test code = 358) GLUCOSE RANDOM 88 mg/dL 70-105 (BEAKER) (test code = 652) CALCIUM (BEAKER) 8.4 mg/dL 8.4-10.2 (test code = 697) EGFR (BEAKER) (test 80 mL/min/1.73 ESTIMA SHAMAR GFR IS code = 1092) sq m NOT ACCURATE CREATININE CLEARANCE IN PREDICTING GLOMERULAR FILTRATION RATE . ESTIMATED GFR I S NOT APPLICABLE FOR DIALYSIS PATIEN TS. CBC W/PLT COUNT & AUTO [id number] 05:05:00 Test Item Value Reference Range Interpretation Comments WHITE BLOOD CELL COUNT (BEAKER) 7.3 K/ L 3.5-10.5 (test code = 775) RED BLOOD CELL COUNT (BEAKER) 3.04 M/ L 3.93-5.22 L (test code = 761) HEMOGLOBIN (BEAKER) (test code = 9.3 GM/DL 11.2-15.7 L 410) HEMATOCRIT (BEAKER) (test code = 29.3 % 34.1-44.9 L 411) MEAN CORPUSCULAR VOLUME (BEAKER) 96.4 fL 79.4-94.8 H (test code = 753) MEAN CORPUSCULAR HEMOGLOBIN 30.6 pg 25.6-32.2 (BEAKER) (test code = 751) MEAN CORPUSCULAR HEMOGLOBIN CONC 31.7 GM/DL 32.2-35.5 L (BEAKER) (test code = 752) RED CELL DISTRIBUTION WIDTH 13.3 % 11.7-14.4 (BEAKER) (test code = 412) PLATELET COUNT (BEAKER) (test 188 K/CU MM 150-450 code = 756) MEAN PLATELET VOLUME (BEAKER) 10.8 fL 9.4-12.3 (test code = 754) NUCLEATED RED BLOOD CELLS 0 /100 WBC 0-0 (BEAKER) (test code = 413) NEUTROPHILS RELATIVE PERCENT 49 % (BEAKER) (test code = 429) LYMPHOCYTES RELATIVE PERCENT 36 % (BEAKER) (test code = 430) MONOCYTES RELATIVE PERCENT 9 % (BEAKER) (test code = 431) EOSINOPHILS RELATIVE PERCENT 5 % (BEAKER) (test code = 432) BASOPHILS RELATIVE PERCENT 1 % (BEAKER) (test code = 437) NEUTROPHILS ABSOLUTE COUNT 3.54 K/ L 1.56-6.13 (BEAKER) (test code = 670) LYMPHOCYTES ABSOLUTE COUNT 2.66 K/ L 1.18-3.74 (BEAKER) (test code = 414) MONOCYTES ABSOLUTE COUNT (BEAKER) 0.64 K/ L 0.24-0.36 H (test code = 415) EOSINOPHILS ABSOLUTE COUNT 0.37 K/ L 0.04-0.36 H (BEAKER) (test code = 416) BASOPHILS ABSOLUTE COUNT (BEAKER) 0.05 K/ L 0.01-0.08 (test code = 417) IMMATURE GRANULOCYTES-RELATIVE 1 % 0-1 PERCENT (BEAKER) (test code = 2801) RAD, CHEST, 1 VIEW, NON [id number] 18:47:00Reason for exam:->check picc placementShould this be performed at the bedside?->YesFINAL REPORT Chest, portable AP view History: PICC placement Comparison: None IMPRESSION: The heart is magnified by portable technique. There is a left upper chest from three patent but the distal catheter tip terminating in appropriate position over the distal SVC. In the lungsare clear. There is no pleural effusion or pneumothorax. Signed: Francis Mayer MDReport Verified Date/Time: 10/07/2017 18:47:06 Reading Location: [facility] C013W Consult Reading Room Electronicallysigned by: FRANCIS MAYER on 10/07/2017 06:47 PMVANCOMYCIN LEVEL, [id number] 14:57:00 Test Item Value Reference Range Interpretation Comments VANCOMYCIN TROUGH (BEAKER) (test 9.7 ug/mL 10.0-20.0 L code = 522) Please obtain vancomycin trough 30 min prior to scheduled doseURINE CULTURE 2017-10-07 12:56:00 Test Item Value Reference Range Interpretation Comments CULTURE (BEAKER) (test <10,000 col/mL skin code = 1095) loreta SURGICALLY OBTAINED CULTURE + GRAM [id number] 12:55:00 Test Item Value Reference Range Interpretation Comments CULTURE (BEAKER) (test code = 1095) Clindamycin (test code S = 10) Erythromycin (test S code = 4) Linezolid (test code = S 40) Nitrofurantoin (test S code = 23) Oxacillin (test code = S 14) Rifampin (test code = S 43) Tetracycline (test S code = 2) Trimethoprim + S Sulfamethoxazole (test code = 47) Vancomycin (test code S = 13) CULTURE (BEAKER) (test A 4+ St aphylococcus code = 1095) aureus GRAM STAIN RESULT 1+ WBCs (BEAKER) (test code = 1123) GRAM STAIN RESULT 3+ gram (BEAKER) (test code = positive cocci 000367) in pairs and clusters COMPREHENSIVE METABOLIC [id number] 07:40:00 Test Item Value Reference Range Interpretation Comments TOTAL PROTEIN 6.6 gm/dL 6.0-8.3 (BEAKER) (test code = 770) ALBUMIN (BEAKER) 3.5 g/dL 3.5-5.0 (test code = 1145) ALKALINE PHOSPHATASE 72 U/L 40-150 (BEAKER) (test code = 346) BILIRUBIN TOTAL 0.8 mg/dL 0.2-1.2 (BEAKER) (test code = 377) SODIUM (BEAKER) (test 141 meq/L 136-145 code = 381) POTASSIUM (BEAKER) 3.3 meq/L 3.5-5.1 L (test code = 379) CHLORIDE (BEAKER) 108 meq/L 98-107 H (test code = 382) CO2 (BEAKER) (test 25 meq/L 22-29 code = 355) BLOOD UREA NITROGEN 6 mg/dL 7-21 L (BEAKER) (test code = 354) CREATININE (BEAKER) 0.76 mg/dL 0.57-1.25 (test code = 358) GLUCOSE RANDOM 108 mg/dL 70-105 H (BEAKER) (test code = 652) CALCIUM (BEAKER) 8.2 mg/dL 8.4-10.2 L (test code = 697) AST (SGOT) (BEAKER) 18 U/L 5-34 (test code = 353) ALT (SGPT) (BEAKER) 22 U/L 6-55 (test code = 347) EGFR (BEAKER) (test 75 mL/min/1.73 ESTIMA SHAMAR GFR IS code = 1092) sq m NOT ACCURATE CREATININE CLEARANCE IN PREDICTING GLOMERULAR FILTRATION RATE . ESTIMATED GFR I S NOT APPLICABLE FOR DIALYSIS PATIEN TS. CBC W/PLT COUNT & AUTO [id number] 07:06:00 Test Item Value Reference Range Interpretation Comments WHITE BLOOD CELL COUNT (BEAKER) 11.0 K/ L 3.5-10.5 H (test code = 775) RED BLOOD CELL COUNT (BEAKER) 3.62 M/ L 3.93-5.22 L (test code = 761) HEMOGLOBIN (BEAKER) (test code = 11.2 GM/DL 11.2-15.7 410) HEMATOCRIT (BEAKER) (test code = 35.0 % 34.1-44.9 411) MEAN CORPUSCULAR VOLUME (BEAKER) 96.7 fL 79.4-94.8 H (test code = 753) MEAN CORPUSCULAR HEMOGLOBIN 30.9 pg 25.6-32.2 (BEAKER) (test code = 751) MEAN CORPUSCULAR HEMOGLOBIN CONC 32.0 GM/DL 32.2-35.5 L (BEAKER) (test code = 752) RED CELL DISTRIBUTION WIDTH 13.5 % 11.7-14.4 (BEAKER) (test code = 412) PLATELET COUNT (BEAKER) (test 185 K/CU MM 150-450 code = 756) MEAN PLATELET VOLUME (BEAKER) 11.2 fL 9.4-12.3 (test code = 754) NUCLEATED RED BLOOD CELLS 0 /100 WBC 0-0 (BEAKER) (test code = 413) NEUTROPHILS RELATIVE PERCENT 70 % (BEAKER) (test code = 429) LYMPHOCYTES RELATIVE PERCENT 20 % (BEAKER) (test code = 430) MONOCYTES RELATIVE PERCENT 7 % (BEAKER) (test code = 431) EOSINOPHILS RELATIVE PERCENT 2 % (BEAKER) (test code = 432) BASOPHILS RELATIVE PERCENT 0 % (BEAKER) (test code = 437) NEUTROPHILS ABSOLUTE COUNT 7.77 K/ L 1.56-6.13 H (BEAKER) (test code = 670) LYMPHOCYTES ABSOLUTE COUNT 2.15 K/ L 1.18-3.74 (BEAKER) (test code = 414) MONOCYTES ABSOLUTE COUNT (BEAKER) 0.80 K/ L 0.24-0.36 H (test code = 415) EOSINOPHILS ABSOLUTE COUNT 0.22 K/ L 0.04-0.36 (BEAKER) (test code = 416) BASOPHILS ABSOLUTE COUNT (BEAKER) 0.04 K/ L 0.01-0.08 (test code = 417) IMMATURE GRANULOCYTES-RELATIVE 1 % 0-1 PERCENT (BEAKER) (test code = 2801) TISSUE [id number] 17:49:00Surgical Pathology Report Case: [id number] Authorizing Provider: Jaziel Mcclelland MD Collected: 10/05/2017 1628 Ordering Location: [facility] PERIOPERATIVE Received: 10/06/2017 0842 SERVICES Pathologist: Bethany Aranda MD Specimen: Explant, Electrodes and Generator TELEPHONER, LUMBAR SPINE, REMOVAL: - TELEPHONER (GROSS DIAGNOSIS)DB/pl Signing Pathologist Direct Phone Line: [phone] signed by Bethany Aranda MD on 10/06/2017 at 5:49 [id number] woundElectrodes and GeneratorReceived fresh labeled "explant", description "electrodes and generator" is a 5.5 x 4.5 x 2.0 cm metallic medical records clerk with two attached clear plastic encased metallic wires each measuring 57.0 cm in length and 0.2 cm in diameter. The specimen is for gross identification only. DB/plBASIC METABOLIC [id number] 06:36:00 Test Item Value Reference Range Interpretation Comments SODIUM (BEAKER) 140 meq/L 136-145 (test code = 381) POTASSIUM (BEAKER) 3.6 meq/L 3.5-5.1 Specimen slightly (test code = 379) hemolyzed CHLORIDE (BEAKER) 110 meq/L 98-107 H (test code = 382) CO2 (BEAKER) (test 23 meq/L 22-29 code = 355) BLOOD UREA NITROGEN 9 mg/dL 7-21 (BEAKER) (test code = 354) CREATININE (BEAKER) 0.74 mg/dL 0.57-1.25 Specimen slightly (test code = 358) hemolyzed GLUCOSE RANDOM 107 mg/dL 70-105 H (BEAKER) (test code = 652) CALCIUM (BEAKER) 7.3 mg/dL 8.4-10.2 L (test code = 697) EGFR (BEAKER) (test 78 mL/min/1.73 ESTIMA SHAMAR GFR IS code = 1092) sq m NOT ACCURATE CREATININE CLEARANCE IN PREDICTING GLOMERULAR FILTRATION RATE . ESTIMATED GFR I S NOT APPLICABLE FOR DIALYSIS PATIEN TS. FL, FILTER TIP INSPECTOR IN OR/30 MINUTE [id number] 21:03:00Reason for exam:- >lumbar wound infectionFINAL REPORT Examination: Fluoroscopic evaluation A single fluoroscopic spotview was obtained during the procedure by the ordering service. Images are nondiagnostic as no radiologist was present at the time of imaging. Cumulative dose was 1.2 mGy. Please see the procedure report for details. Signed: Anderson Yepez MDReport Verified Date/Time: 10/05/2017 21:03:54 Reading Location: [address] Reading Room CBC W/PLT COUNT & AUTO [id number] 17:03:00 Test Item Value Reference Range Interpretation Comments WHITE BLOOD CELL COUNT (BEAKER) 18.1 K/ L 3.5-10.5 H (test code = 775) RED BLOOD CELL COUNT (BEAKER) 3.07 M/ L 3.93-5.22 L (test code = 761) HEMOGLOBIN (BEAKER) (test code = 9.6 GM/DL 11.2-15.7 L 410) HEMATOCRIT (BEAKER) (test code = 29.2 % 34.1-44.9 L 411) MEAN CORPUSCULAR VOLUME (BEAKER) 95.1 fL 79.4-94.8 H (test code = 753) MEAN CORPUSCULAR HEMOGLOBIN 31.3 pg 25.6-32.2 (BEAKER) (test code = 751) MEAN CORPUSCULAR HEMOGLOBIN CONC 32.9 GM/DL 32.2-35.5 (BEAKER) (test code = 752) RED CELL DISTRIBUTION WIDTH 13.6 % 11.7-14.4 (BEAKER) (test code = 412) PLATELET COUNT (BEAKER) (test 155 K/CU MM 150-450 code = 756) MEAN PLATELET VOLUME (BEAKER) 11.7 fL 9.4-12.3 (test code = 754) NUCLEATED RED BLOOD CELLS 0 /100 WBC 0-0 (BEAKER) (test code = 413) NEUTROPHILS RELATIVE PERCENT 73 % (BEAKER) (test code = 429) LYMPHOCYTES RELATIVE PERCENT 17 % (BEAKER) (test code = 430) MONOCYTES RELATIVE PERCENT 7 % (BEAKER) (test code = 431) EOSINOPHILS RELATIVE PERCENT 1 % (BEAKER) (test code = 432) BASOPHILS RELATIVE PERCENT 0 % (BEAKER) (test code = 437) NEUTROPHILS ABSOLUTE COUNT 13.26 K/ L 1.56-6.13 H (BEAKER) (test code = 670) LYMPHOCYTES ABSOLUTE COUNT 3.08 K/ L 1.18-3.74 (BEAKER) (test code = 414) MONOCYTES ABSOLUTE COUNT (BEAKER) 1.32 K/ L 0.24-0.36 H (test code = 415) EOSINOPHILS ABSOLUTE COUNT 0.26 K/ L 0.04-0.36 (BEAKER) (test code = 416) BASOPHILS ABSOLUTE COUNT (BEAKER) 0.05 K/ L 0.01-0.08 (test code = 417) IMMATURE GRANULOCYTES-RELATIVE 1 % 0-1 PERCENT (BEAKER) (test code = 2801) HGB/HCT (H&H) - STAT [id number] 16:00:00 Test Item Value Reference Range Interpretation Comments HEMOGLOBIN (BEAKER) (test code = 10.4 g/dL 12.0-15.0 L 410) HEMATOCRIT (BEAKER) (test code = 31.0 % 36.0-45.0 L 411) URINALYSIS W/ [id number] 15:08:00 Test Item Value Reference Range Interpretation Comments COLOR (BEAKER) (test code = Light Yellow 470) CLARITY (BEAKER) (test code = Clear 469) SPECIFIC GRAVITY UA (BEAKER) 1.030 1.001-1.035 (test code = 468) PH UA (BEAKER) (test code = 6.0 5.0-8.0 467) PROTEIN UA (BEAKER) (test code Negative Negative = 464) GLUCOSE UA (BEAKER) (test code Negative Negative = 365) KETONES UA (BEAKER) (test code Negative Negative = 371) BILIRUBIN UA (BEAKER) (test Negative Negative code = 462) BLOOD UA (BEAKER) (test code = Negative Negative 461) NITRITE UA (BEAKER) (test code Negative Negative = 465) LEUKOCYTE ESTERASE UA (BEAKER) Negative Negative (test code = 466) UROBILINOGEN UA (BEAKER) (test 0.2 mg/dL 0.2-1.0 code = 463) RBC UA (BEAKER) (test code = 0 /HPF 519) WBC UA (BEAKER) (test code = 0 /HPF 520) SQUAMOUS EPITHELIAL (BEAKER) 1 /HPF (test code = 516) SOURCE(BEAKER) (test code = Urine, Voided 2205) SEDIMENTATION [id number] 14:43:00 Test Item Value Reference Range Interpretation Comments SEDIMENTATION RATE, ERYTHROCYTE 18 mm/HR 0-40 (BEAKER) (test code = 766) BASIC METABOLIC [id number] 12:54:00 Test Item Value Reference Range Interpretation Comments SODIUM (BEAKER) 139 meq/L 136-145 (test code = 381) POTASSIUM (BEAKER) 4.2 meq/L 3.5-5.1 (test code = 379) CHLORIDE (BEAKER) 106 meq/L 98-107 (test code = 382) CO2 (BEAKER) (test 26 meq/L 22-29 code = 355) BLOOD UREA NITROGEN 13 mg/dL 7-21 (BEAKER) (test code = 354) CREATININE (BEAKER) 0.93 mg/dL 0.57-1.25 (test code = 358) GLUCOSE RANDOM 144 mg/dL 70-105 H (BEAKER) (test code = 652) CALCIUM (BEAKER) 7.9 mg/dL 8.4-10.2 L (test code = 697) EGFR (BEAKER) (test 60 mL/min/1.73 ESTIMA SHAMAR GFR IS code = 1092) sq m NOT ACCURATE CREATININE CLEARANCE IN PREDICTING GLOMERULAR FILTRATION RATE . ESTIMATED GFR I S NOT APPLICABLE FOR DIALYSIS PATIEN TS. C-REACTIVE [id number] 12:51:00 Test Item Value Reference Range Interpretation Comments C-REACTIVE PROTEIN (BEAKER) (test 5.19 mg/dL 0.00-0.50 H code = 676) LACTIC ACID, VENOUS, WHOLE [id number] 12:48:00 Test Item Value Reference Range Interpretation Comments LACTATE BLOOD VENOUS (2) (BEAKER) 1.7 mmol/L 0.5-2.2 (test code = 2872) Effective 01/28/2016: Units/Reference Range ChangeNew: 0.5-2.2 mmol/L Previous: 5-20 mg/dLPROTHROMBIN [id number] 12:44:00 Test Item Value Reference Range Interpretation Comments PROTIME (BEAKER) (test code = 15.5 seconds 11.7-14.7 H 759) INR (NESTOR) (test code = 370) 1.2 <=5.9 RECOMMENDED COUMADIN/WARFARIN INR THERAPY RANGESSTANDARD DOSE: 2.0 - 3.0 Includes: PROPHYLAXIS forvenous thrombosis, systemic embolization; TREATMENT for venous thrombosis and/or pulmonary embolus.HIGH RISK: Target INR is 2.5-3.5 for patients with mechanical heart valves.
--- NOTE | 2020-05-04 17:27 | EDPHYS ---
Physician Documentation [facility] Name: Kiera Gibson Age: 74 yrs Sex: Female : 1945 Arrival Date: 05/04/2020 Time: 16:41 Bed 13 Private MD: Júnior Goncalves ED Physician Krishna Farr HPI: 05/04 16:55 This 74 yrs old Female presents to ER via Unassigned with complaints of Leg jmm Pain. 16:55 The patient presents with pain. Onset: The symptoms/episode began/occurred today. jmm Modifying factors: The symptoms are alleviated by nothing. the symptoms are aggravated by nothing. Associated signs and symptoms: Pertinent positives: calf tenderness, Pertinent negatives swelling, warmth, weakness. This is a 74 year old female with a history of DVT/PE that presents to the ED with complaints of left lower leg pain beginning today. Patient denies chest pain, or increased shortness of breath. . Historical: - Allergies: 17:02 PENICILLINS; jr10 17:02 PILOCARPINE; jr10 17:02 Nitrofurantoin; jr10 - Home Meds: 17:02 prednisone 5 mg Oral tab once daily [Active]; celecoxib 200 mg Oral cap [Active]; jr10 venlafaxine 150 mg Oral tr24 1 tab once daily [Active]; metoprolol tartrate 25 mg Oral tab 1 tab once daily [Active]; gabapentin 300 mg Oral cap [Active]; ropinirole 1 mg Oral tab [Active]; metformin 500 mg Oral tab [Active]; montelukast 10 mg Oral tab 1 tab once daily [Active]; famotidine 40 mg Oral tab [Active]; omeprazole 40 mg Oral cpDR [Active]; Eliquis 2.5 mg oral tab 2 times per day [Active]; Trilogy inhaler daily [Active]; - PMHx: 17:02 Asthma; Chronic pain; Depression; DVT; Gastric Reflux; PE; Rheumatoid Arthritis; RLS; jr10 Sleep Apnea; SVT; - Immunization history:: Adult Immunizations up to date. - Social history:: Smoking status: unknown. ROS: 16:55 Constitutional: Negative for fever, chills, and weight loss, Cardiovascular: Negative jmm for chest pain, palpitations, and edema, Respiratory: Negative for shortness of breath, cough, wheezing, and pleuritic chest pain. 16:55 MS/extremity: Positive for pain. 16:55 All other systems are negative. Exam: 16:55 Constitutional: This is a well developed, well nourished patient who is awake, alert, jmm and in no acute distress. Head/Face: atraumatic. Eyes: EOMI, no conjunctival erythema appreciated ENT: Moist Mucus Membranes Neck: Trachea midline, Supple Chest/axilla: Normal chest wall appearance and motion. Cardiovascular: Regular rate and rhythm. No edema appreciated Respiratory: Normal respirations, no respiratory distress appreciated Abdomen/GI: Non distended, soft Back: Normal ROM Skin: General appearance color normal 16:55 Musculoskeletal/extremity: pain elicited on palpation of the left calf region, the area is soft, full dorsalis pulse, NVI. 16:55 Skin: Appearance: Color: normal in color. 16:55 Neuro: Orientation: is normal, Mentation: is normal, Memory: is normal. 16:55 Psych: Behavior/mood is pleasant, cooperative. Vital Signs: 16:53 BP 94 / 62; Pulse 85; Resp 20; Temp 97.7(TE); Pulse Ox 99% ; Weight 107.95 kg; Height 5 jr10 ft. 6 in. (167.64 cm); Pain 5/10; 17:16 BP 103 / 66; Pulse 81; Resp 18; Pulse Ox 96% on R/A; Pain 5/10; ks7 18:14 BP 107 / 54; Pulse 77; Resp 18; Temp 98(O); Pulse Ox 98% on R/A; Pain 4/10; ks7 16:53 Body Mass Index 38.41 (107.95 kg, 167.64 cm) jr10 MDM: 16:50 Patient medically screened. rn 17:26 Data reviewed: vital signs, nurses notes. Counseling: I had a detailed discussion with [facility] the patient and/or guardian regarding: the historical points, exam findings, and any diagnostic results supporting the discharge/admit diagnosis, the need for outpatient follow up, to return to the emergency department if symptoms worsen or persist or if there are any questions or concerns that arise at home. ED course: US negative. Patient is advised to follow up with PCP or return to the ED if she develops increased pain, shortness of breath, or chest pain. . 05/04 16:55 Order name: US Extremity Venous Unilateral Ltd [facility] Administered Medications: No medications were administered Disposition: 18:21 Co-signature as Attending Physician, Krishna Farr MD. rn Disposition: 05/04/20 17:27 Discharged to Home. Impression: Pain in left leg. - Condition is Stable. - Discharge Instructions: Musculoskeletal Pain. - Medication Reconciliation Form, Thank You Letter, Antibiotic Education, Prescription Opioid Use form. - Follow up: Private Physician; When: 2 - 3 days; Reason: Recheck today's complaints, Continuance of care, Re-evaluation by your physician. Signatures: Dispatcher [employer] EDMS Bridger Davidson, HESHAM PA Krishna Doe MD MD rn Songcuan, Kathleen RN RN ks7 Natalie Ruiz RN RN jr10 Corrections: (The following items were deleted from the chart) 18:16 17:27 05/04/2020 17:27 Discharged to Home. Impression: Pain in left leg. Condition is ks7 Stable. Forms are Medication Reconciliation Form, Thank You Letter, Antibiotic Education, Prescription Opioid Use. Follow up: Private Physician; When: 2 - 3 days; Reason: Recheck today's complaints, Continuance of care, Re-evaluation by your physician. savi
--- NOTE | 2020-05-04 17:27 | ER ---
Nurse's Notes [facility] Name: Kiera Gibson Age: 74 yrs Sex: Female : 1945 Arrival Date: 05/04/2020 Time: 16:41 Bed 13 Private MD: Júnior Goncalves Diagnosis: Pain in left leg Presentation: 05/04 16:53 Chief complaint: Patient states: Pt c/o left leg pain since yesterday, pt reports hx of jr10 DVT with PE; reports that she is currently on Eliquis daily. Coronavirus screen: Client denies travel out of the [place] in the last 14 days. At this time, the client does not indicate any symptoms associated with coronavirus-19. Ebola Screen: No symptoms or risks identified at this time. Initial Sepsis Screen: Does the patient meet any 2 criteria? No. Patient's initial sepsis screen is negative. Does the patient have a suspected source of infection? No. Patient's initial sepsis screen is negative. Risk Assessment: Do you want to hurt yourself or someone else? Patient reports no desire to harm self or others. Onset of symptoms was May 03, 2020. 16:53 Method Of Arrival: Ambulatory 10 16:53 Acuity: SHAMAR 3 jr10 Historical: - Allergies: 17:02 PENICILLINS; jr10 17:02 PILOCARPINE; jr10 17:02 Nitrofurantoin; jr10 - Home Meds: 17:02 prednisone 5 mg Oral tab once daily [Active]; celecoxib 200 mg Oral cap [Active]; jr10 venlafaxine 150 mg Oral tr24 1 tab once daily [Active]; metoprolol tartrate 25 mg Oral tab 1 tab once daily [Active]; gabapentin 300 mg Oral cap [Active]; ropinirole 1 mg Oral tab [Active]; metformin 500 mg Oral tab [Active]; montelukast 10 mg Oral tab 1 tab once daily [Active]; famotidine 40 mg Oral tab [Active]; omeprazole 40 mg Oral cpDR [Active]; Eliquis 2.5 mg oral tab 2 times per day [Active]; Trilogy inhaler daily [Active]; - PMHx: 17:02 Asthma; Chronic pain; Depression; DVT; Gastric Reflux; PE; Rheumatoid Arthritis; RLS; jr10 Sleep Apnea; SVT; - Immunization history:: Adult Immunizations up to date. - Social history:: Smoking status: unknown. Screenin:16 Abuse screen: Denies threats or abuse. Denies injuries from another. Nutritional ks7 screening: No deficits noted. Tuberculosis screening: No symptoms or risk factors identified. Fall Risk None identified. Assessment: 17:16 General: Appears in no apparent distress. Behavior is calm, cooperative. Pain: ks7 Complains of pain in left leg, behind knee Pain currently is 5 out of 10 on a pain scale. Quality of pain is described as crampy, sharp, pt denies CP or SOB Pain began 1 day ago. Is intermittent, Alleviated by rest, Aggravated by increased activity, palpation. Musculoskeletal: Reports pain in left leg since last night pt noted pain behind L knee and while sitting down. hx of blood clot and PE. but denies any sob or CP. Vital Signs: 16:53 BP 94 / 62; Pulse 85; Resp 20; Temp 97.7(TE); Pulse Ox 99% ; Weight 107.95 kg; Height 5 jr10 ft. 6 in. (167.64 cm); Pain 5/10; 17:16 BP 103 / 66; Pulse 81; Resp 18; Pulse Ox 96% on R/A; Pain 5/10; ks7 18:14 BP 107 / 54; Pulse 77; Resp 18; Temp 98(O); Pulse Ox 98% on R/A; Pain 4/10; ks7 16:53 Body Mass Index 38.41 (107.95 kg, 167.64 cm) jr10 ED Course: 16:41 Patient arrived in ED. ag5 16:42 Júnior Goncalves MD is Private Physician. ag5 16:44 Natalie Ruiz, RN is Primary Nurse. jr10 16:50 Krishna Farr MD is Attending Physician. rn 16:51 [facility]ger Davidson [facility] 16:57 Triage completed. jr10 17:02 Arm band placed on. jr10 17:12 Primary Nurse role handed off by Natalie Ruiz, AGNES ks7 17:12 Katerin Rolon, AGNES is Primary Nurse. ks7 17:16 Resting quietly. ks7 17:16 Patient has correct armband on for positive identification. Placed in gown. Bed in low ks7 position. Call light in reach. Side rails up X2. 17:16 No provider procedures requiring assistance completed. ks7 17:21 US at bedside. ks7 18:15 Patient did not have IV access during this emergency room visit. ks7 Administered Medications: No medications were administered Outcome: 17:27 Discharge ordered by . savi 18:15 Discharged to home ks7 18:15 Discharged to home ambulatory. 18:15 Condition: good 18:15 Discharge instructions given to patient, Instructed on discharge instructions, follow up and referral plans. Demonstrated understanding of instructions, follow-up care. 18:16 Patient left the ED. ks7 Signatures: Bridger Davidson PA PA jmm Nieto, Roman, MD MD rn Gaskin, Ajare ag5 Songcuan, Kathleen, RN RN ks7 Natalie Ruiz RN RN jr10
[2020-05-04 18:37] VITALS: BP 107/54; TEMP 98; O2SAT 98
--- NOTE | 2020-05-04 18:45 | RAD REPORT ---
EXAM DESCRIPTION: US - Extremity Venous Uni Ltd - 05/04/2020 5:33 pm CLINICAL HISTORY: PAIN Leg swelling and edema. COMPARISON: Extremity Venous Uni Ltd dated 03/17/2018 FINDINGS: Left lower extremity venous system was interrogated with Doppler technique. Small amount o f old thrombus is seen in the left popliteal vein. No acute DVT is present. IMPRESSION: No evidence of acute left lower extremity deep venous thrombosis. Small amount of old th rombus is seen in the left popliteal vein.
== END 2020-05-04 18:16 | disposition home or self-care (01) ==
LOC: ER 16:39
DX: M79.605 Pain in left leg (principal); F32.9 Major depressive disorder, single episode, unspecified; Z79.01 Long term (current) use of anticoagulants; Z86.711 Personal history of pulmonary embolism; Z86.718 Personal history of other venous thrombosis and embolism; Z88.0 Allergy status to penicillin; Z88.8 Allergy status to other drugs, medicaments and biological substances
CPT/HCPCS: 93971; 99281

== ENCOUNTER 2020-08-14 15:36 | Emergency (ER) | payer OTHER, BC ==
--- OUTSIDE RECORDS SUMMARY | 2020-08-14 15:40 | XMS REPORT | Clinical Summary ---
:1945 Author Organization [facility] Address [address] [place] [address] Care Team Providers Name Role Phone Yunior Goncalves MD Primary Care Provider Allergies Not on File Medications Not on file Active Problems Not on file Encounters Date Type Specialty Care Team Description 05/16/2020 Hospital Encounter Radiology Crow Calderon MD Post laminectomy syndrome, not elsewhere c lassified 05/16/2020 Hospital Encounter Radiology Crow Calderon MD Post laminectomy syndrome, not elsewhere c lassified 05/16/2020 Travel 05/02/2020 Travel 05/02/2020 Transcribe Orders Access Crow Calderon MD Postl aminectomy syndrome, not elsewhere c lassified (Primary Dx) after 08/14/2019 Social History Tobacco Use Types Packs/Day Years Used Date Never Assessed Sex Assigned at Date Recorded Not on file Last Filed Vital Signs Not on file Plan of Treatment Health Maintenance Due Date Last Done Comments BREAST CANCER SCREENING 1996 COLONOSCOPY SCREENING 1996 SHINGLES VACCINES (#1) 1996 65+ PNEUMOCOCCAL VACCINE (1 of 1 - PPSV23) 01/01/2012 INFLUENZA VACCINE 04/26/2020 Procedures Procedure Name Priority Date/Time Associated Diagnosis Comme nts MRI LUMBAR SPINE Routine 05/16/2020 7:30 Postlaminectomy Resu lts for this WO CONTRAST PM CDT syndrome, not elsewhere proc edure are in classified the results section. MRI THORACIC SPINE Routine 05/16/2020 6:47 Postlaminectomy Re sults for this WO CONTRAST PM CDT syndrome, not elsewhere proc edure are in classified the results section. after 08/14/2019 Results MRI Lumbar Spine Wo Contrast (05/16/2020 7:30 PM CDT) Specimen Narrative Performed At EXAMINATION: MRI LUMBAR SPINE WO CONTR AST [facility] CLINICAL HISTORY: M96.1 Postlaminectomy syndrome n ot elsewhere classified, M96.1 COMPARISON: May 10, 2019 FINDINGS: Lowermost functional disc space is assum ed to be L5-S1. Grade 1 anterolisthesis at L4-5. Multilevel disc space narrowing and endp late degenerative changes. No suspicious focal bone marrow lesions Visualized spinal cord is normal in appe arance. L1-2: Right paracentral disc protrusion. No central ca nal or foraminal narrowing. L2-3: No central canal or foraminal narr owing. L3-4: Posterior central disc protrusion and bilateral facet arthropathy. No central canal or foraminal narrowing. L4-5: Laminectomy changes. Interval resolution of left paracentral disc protrusion. Grade 1 anterolisthesis, uncovering of the disc, posterior disc bulge and facet arthropathy causes progressive na rrowing of the right lateral recess and potential impingement of the right L5 nerve root. There is moder ate to severe right and moderate left foraminal narrowing. This has progressed since last examination. L5-S1: Prominent epidural lipomatosis effaces the suba rachnoid space. No significant spondylotic canal narrowing. Foramina are clear. IMPRESSION: L4-5 laminectomy changes with improved patency of the left L4-5 lateral recess. There is progressive narrowing of the right L4 -5 lateral recess and bilateral foramina. [id number] Procedure Note Hm Interface, Radiology Results Incoming - 05/16/2020 9:00 PM CDT EXAMINATION: MRI LUMBAR SPINE WO CONTRAST CLINICAL HISTORY: M96.1 Postlaminectomy syndrome not elsewhere classified, M96.1 COMPARISON: May 10, 2019 FINDINGS: Lowermost functional disc space is assum ed to be L5-S1. Grade 1 anterolisthesis at L4-5. Multilevel disc space narrowing and endp late degenerative changes. No suspicious focal bone marrow lesions Visualized spinal cord is normal in appe arance. L1-2: Right paracentral disc protrusion. No central canal or foraminal narrowing. L2-3: No central canal or foraminal narr owing. L3-4: Posterior central disc protrusion and bilateral facet arthropathy. No central canal or foraminal narrowing. L4-5: Laminectomy changes. Interval reso lution of left paracentral disc protrusion. Grade 1 anterolisthesis, uncovering of the disc, posterior disc bulge and facet arthropathy causes progressive narrowing of the right lateral recess and potential impingement of the right L5 nerve root. There is moderate to severe right and moderate left foraminal narrowing. This has progressed since last examination. L5-S1: Prominent epidural lipomatosis ef faces the subarachnoid space. No significant spondylotic canal narrowing. Foramina are clear. IMPRESSION: L4-5 laminectomy changes with improved p atency of the left L4-5 lateral recess. There is progressive narrowing of the right L4-5 lateral recess and bilateral foramina. [facility] Performing Organization Address City/State/ZIP Code Phon e Number [facility] [id number] [place] [address] MRI Thoracic Spine Wo Contrast (05/16/2020 6:47 PM CDT) Specimen Narrative Performed At This result has an attachment that is no t available. EXAMINATION: MRI THORACIC SPINE WO CONTRAST [facility] CLINICAL HISTORY: M96.1 Postlaminectomy syndrome not elsewhere classified, M96.1 COMPARISON: None TECHNIQUE: Multiplanar multisequence non contrast enhanced examination was performed of the thoracic spine. FINDINGS: Mild thoracic kyphosis. Alignment is oth erwise unremarkable. Vertebral body heights are maintained. Mild multilevel anterior endplate spurring with mild to moderate intervertebral disc space narrowing a t T8-T9. No suspicious osseous lesion or bone marrow edema. No cord signal abnormality. Patent spinal canal and neural foramina at all thoracic levels with no more than minimal posterior disc bulge or protrusion identified. For example, there is a small left central posterior disc protrusion at T8-T9 without significant spinal canal narrowing. Mild right facet hypertrophy at T9-T10. IMPRESSION: Mild degenerative changes without signif icant spinal canal or neural foraminal narrowing. [id number] Procedure Note Interface, Radiology Results - 05/16/2020 8:38 PM CDT EXAMINATION: MRI THORACIC SPINE WO CONTRAST CLINICAL HISTORY: M96.1 Postlaminectomy syndrome not elsewhere classified, M96.1 COMPARISON: None TECHNIQUE: Multiplanar multisequence non contrast enhanced examination was performed of the thoracic spine. FINDINGS: Mild thoracic kyphosis. Alignment is oth erwise unremarkable. Vertebral body heights are maintained. Mild multilevel anterior endplate spurring with mild to moderate intervertebral disc space narrowing at T8-T9. No suspicious osseous lesion or bone marrow edema. No cord signal abnormality. Patent spinal canal and neural foramina at all thoracic levels with no more than minimal posterior disc bulge or protrusion identified. For example, there is a small left central posterior disc protrusion at T8-T9 without significant spinal canal narrowing. Mild right facet hypertrophy at T9-T10. IMPRESSION: Mild degenerative changes without signif icant spinal canal or neural foraminal narrowing. [id number] Performing Organization Address City/State/ZIP Code Phon e Number [facility] [id number] [facility] [place] [address] after 08/14/2019 Insurance Payer Benefit Plan / Subscriber ID Effective Phone Address T ype Group Dates MEDICARE MEDICARE PART A [id number] 2011-[place], [place] Medicare AND B ent BCBS COMMERCIAL BCBS MEDICARE [id number] 2012-[facility] Commercial SUPPLEMENT ent Advance Directives For more information, please contact: [phone] Type Date Recorded Patient Billet Checker Explanati on Advance Directives, Living Will and Medical Power of Digital Strategy Specialist
--- OUTSIDE RECORDS SUMMARY | 2020-08-14 15:40 | XMS REPORT | Clinical Summary ---
:1945 Author Organization [facility] Address [address] [place] [address] Care Team Providers Name Role Phone Yunior [...] Date Last Done Comments BREAST CANCER SCREENING 1945 COLON CANCER SCREENING COLONOSCOPY 1945 PNEUMOCOCCAL 65+ YRS (1 of 1 - [id number]) 01/01/2012 MEDICARE ANNUAL WELLNESS (YEAR 2 or FIRST YEAR if no 12/26/2012 IPPE) INFLUENZA VACCINE (#1) 2020 Results Not on fileafter 08/14/2019 Insurance Payer Benefit Plan / Subscriber ID Effective Phone Address T ype Group Dates MEDICARE MEDICARE A B [id number] 2011-Pre[place] Medicare nt BLUE BCBS INDEMNITY [id number] 2012-[place] [phone] [address] PPO CROSS/BLUE [place] [id number] [place] [address] (Home) [place] [address] Advance Directives For more information, please contact: [phone] Code Status Date Activated Date Inactivated Comments Full Code 10/05/2017 11:51 AM 10/10/2017 10:31 PM This code status was determined by: Patient
--- OUTSIDE RECORDS SUMMARY | 2020-08-14 15:40 | XMS REPORT | Continuity of Care Document ---
:1945 Author Organization [facility] t Address [address] [place] [address] Care Team Providers Name Role Phone Yunior Goncalves MD Primary Care Physician Kvng CASE Attending Clinician JADE SHAH Attending Clinician Unavailable JADE SHAH Admitting Clinician Unavailable Payers Payer Name Policy Type Policy Effective Date Expiration Date Sour ce Number MEDICAREMEDICARE PART [id number] 2011 [place] mahad [place] AND 00:00:00 [employer] [id number] 2012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 00:00: Me dical of upper of upper 00 [place] extremity, extremity, left left Hardware Hardware Disease [facility] complic[facility] complicati -10 Sulema kes - ng wound ng wound 00:00: Medica l infection infection 00 Cent er Allergies, Adverse Reactions, Alerts Allergy Allergy Status Severity Reaction(s) Onset Inactive Treating Comm ents Source Name Type Date Date Clinician [place] Propensi Active [facility] to 1-11 [facility] - adverse 00:00: Medical reaction 00 [place] s Penicill Propensi Active [facility] ins [facility] to 110 [facility] - adverse 00:00: Medical reaction 00 [place] s Social History Social Habit Start Date Stop Date Quantity Comments Source Sex Assigned At [facility] Medications Ordered Filled Start Stop Current Ordering Indication Dosage Frequency Signature Comments Components Source Medication Medication Date Date Medication? Clinician (SIG) Name Name rOPINIRole Yes 1mg QD Take [address] (REQUIP) 1 1-15 by mouth [facility] - MG tablet 20:31: daily. Medica 38 [place] estradiol Yes 1mg QD Take [address] (ESTRACE) 1 1-15 by mouth [facility] - MG tablet 20:31: daily. Medica [address] gabapentin Yes 300mg Take [address] (NEURONTIN) 1-15 mg by [facility] - 300 MG 20:31: mouth Medical capsule 38 every Center other day. gabapentin Yes 600mg Take [address] (NEURONTIN) 1-15 mg by [facility] - 600 MG 20:31: mouth Medical tablet 38 every Center other day. pantoprazol Yes 40mg QD Take [address] e 1-15 by mouth [facility] - (PROTONIX) 20:31: daily. Medic al 40 MG 38 [place] tablet celecoxib Yes 200mg QD Take [address] (CELEBREX) 1-15 mg by [facility] - 200 MG 20:31: mouth Medical capsule 38 daily. [place] nebivolol 20180 Yes 5mg QD Take [address] (BYSTOLIC) 1-15 by mouth [facility] - 5 MG tablet 20:31: daily. Medi holly 38 [place] montelukast 20180 Yes 10mg QD Take [address] (SINGULAIR) 1-15 by mouth [facility] - 10 mg 20:31: nightly. Medical tablet 38 [place] predniSONE 2018 Yes 10mg QD Take [address] (DELTASONE) 1-15 by mouth [facility] - 10 MG 20:31: daily. Medical tablet 38 [place] folic acid 0 Yes 1mg QD Take [address] (FOLVITE) 1 1-15 by mouth [facility] - MG tablet 20:31: daily. Medica l 38 [place] cholecalcif Yes 33991O QD Take [facility] vimal, 1-15 10,000 [facility] - vitamin D3, 20:31: Units by Pr dical 1,000 unit 38 mouth Center capsule daily. INFLIXIMAB Yes Inject [facility] (REMICADE 1-15 intravenou [facility] - IV) 20:31: sly every [facility] 38 7 days. [place] methocarbam Yes 750mg Take [address] ol 1-15 tablet [facility] - (ROBAXIN) 00:00: (750 mg Medic al 750 MG 00 total) by Center tablet mouth 4 (four) times daily as needed for up to 60 doses. Procedures Procedure Date / Time Performed Performing Clinician [facility] e MRI LUMBAR SPINE WO 2020-05-16 19:30:10 Crow Calderon CONTRAST MRI THORACIC SPINE WO 2020-05-16 18:47:41 Crow Calderon CONTRAST Plan of Care Planned Activity Planned Date Details Comments Source Future Scheduled 2020-05-27 INFLUENZA VACCINE (#1) [facility] - Test 00:00:00 [code = INFLUENZA Medical Ce nter VACCINE (#1)] Future Scheduled 2020-04-26 INFLUENZA VACCINE Jailynto n [facility] Test 00:00:00 [code = INFLUENZA VACCINE] Future Scheduled 2012-12-[address] [facility] - Test 00:00:00 WELLNESS (YEAR 2 or Medical Center FIRST YEAR if no IPPE) [code = MEDICARE ANNUAL WELLNESS (YEAR 2 or FIRST YEAR if no IPPE)] Future Scheduled 2012-01-01 65+ PNEUMOCOCCAL [facility] [facility] Test 00:00:00 VACCINE (1 of 1 - PPSV23) [code = 65+ PNEUMOCOCCAL VACCINE (1 of 1 - PPSV23)] Future Scheduled 2012-01-01 PNEUMOCOCCAL 65+ [facility]RS [facility] - Test 00:00:00 (1 of 1 - Medical Center [id number] PCV13) [code = PNEUMOCOCCAL 65+ YRS (1 of 1 - [id number] PCV13)] Future Scheduled 1996 BREAST CANCER [facility] Test 00:00:00 SCREENING [code = BREAST CANCER SCREENING] Future Scheduled 1996 COLONOSCOPY SCREENING [facility] Test 00:00:00 [code = COLONOSCOPY SCREENING] Future Scheduled 1996 SHINGLES VACCINES (#1) [place] [facility] Test 00:00:00 [code = SHINGLES VACCINES (#1)] Future Scheduled [address] [facility] - Test 00:00:00 [facility] breast (procedure) [code = 300417264] Future Scheduled [address] [facility] - Test 00:00:00 malignant neoplasm of [facility] colon (procedure) [code = 347301209] Encounters Start End Encounter Admission Attending Care Care Encounter Source Date/Time Date/Time Type Type Clinicians Facility Department ID 2020-05-16 2020-05-16 Outpatient [facility] [id number] [address] [place] [address] 00:00:00 00:00:00 CROW [address] 2020-05-16 2020-05-16 Outpatient [facility] [id number] [address] [place] [address] 00:00:00 00:00:00 CROW [address] Results Test Description Test Time Test Comments Results Result Sourc e Comments MRI Lumbar Spine 2020-04-27 Janay Munoz on Wo Contrast 1 Radiology Results Method ist 20:56:57 05/16/2020 9:00 PM CDTEXAMINATION: MRI LUMBAR SPINE WO CONTRASTCLINICAL HISTORY: M96.1 Postlaminectomy syndrome not elsewhere classified, M96.1COMPARISON: May 10, 2019FINDINGS:Lowermost functional disc space is assumed to be L5-S1.Grade 1 anterolisthesis at L4-5.Multilevel disc space narrowing and endplate degenerative changes.No suspicious focal bone marrow lesionsVisualized spinal cord is normal in appearance.L1-2: Right paracentral disc protrusion. No central canal or foraminal narrowing.L2-3: No central canal or foraminal narrowing.L3-4: Posterior central disc protrusion and bilateral facet arthropathy. No central canal or foraminal narrowing.L4-5: Laminectomy changes. Interval resolution of left paracentral disc protrusion. Grade 1 anterolisthesis, uncovering of the disc, posterior disc bulge and facet arthropathy causes progressive narrowing of the right lateral recess and potential impingement of the right L5 nerve root. There is moderate to severe right and moderate left foraminal narrowing. This has progressed since last examination.L5-S1: Prominent epidural lipomatosis effaces the subarachnoid space. No significant spondylotic canal narrowing. Foramina are clear.IMPRESSION:L4-5 laminectomy changes with improved patency of the left L4-5 lateral recess. There is progressive narrowing of the right L4-5 lateral recess and bilateral foramina.[facility] Thoracic 2020-04-27 [facility] Spine Wo [address] Contrast 20:35:32 - 05/16/2020 8:38 PM CDTEXAMINATION: MRI THORACIC SPINE WO CONTRASTCLINICAL HISTORY: M96.1 Postlaminectomy syndrome not elsewhere classified, M96.1COMPARISON: NoneTECHNIQUE: Multiplanar multisequence noncontrast enhanced examination was performed of the thoracic spine.FINDINGS:Mild thoracic kyphosis. Alignment is otherwise unremarkable. Vertebral body heights are maintained. Mild multilevel anterior endplate spurring with mild to moderate intervertebral disc space narrowing at T8-T9. No suspicious osseous lesion or bone marrow edema. No cord signal abnormality.Patent spinal canal and neural foramina at all thoracic levels with no more than minimal posterior disc bulge or protrusion identified. For example, there is a small left central posterior disc protrusion at T8-T9 without significant spinal canal narrowing. Mild right facet hypertrophy at T9-T10.IMPRESSION: Mild degenerative changes without significant spinal canal or neural foraminal narrowing.[id number], CHEST, 2018-08-26 FINAL REPORT PATIENT WITHOUT CONTRAST 2 ID: [id number] CT of 12:37:00 the Chest dated 09/06/2018 CLINICAL INFORMATION: lung [...] the left lower lobe. A 7 mm spiculated nodule is seen in the right lower lobe. Minimal scarring seen in the right mid lobe. The rest of the lungs are clear. No mass lesion or airspace disease is noted. No interstitial disease or bronchiectasis is present. No pleural effusion or pleural based mass is seen. Visualized upper abdomen demonstrates no focal lesion. Impression: Nodular lesions in both lower lobes. Recommend further evaluation with CT of the chest in 3-6 months. Signed: Debbi Mancini MDReport Verified Date/Time: 09/06/2018 12:37:19 Reading Location: [place] [id number] CT Body Reading Room CULTURE + SMEAR 2017-11-23 22:54:00 Test Item Value Reference Range Interpretation Comme nts CULTURE (BEAKER) (test code = 1095) No acid-fast bacilli isolated i n 42 days AFB SMEAR (BEAKER) (test code = 994) No acid fast bacilli seen FUNGUS CULTURE + [id number] 09:24:00 Test Item Value Reference Range Interpretation Comments CULTURE (BEAKER) (test No fungus isolated in code = 1095) 28 days FUNGUS SMEAR (BEAKER) No fungi seen (test code = 1406) RAD, CHEST, 1 VIEW, NON [id number] 19:04:00Reason for exam:->picc line placement repeat stat [...] Mancini Verified Date/Time: 10/10/2017 19:04:22 Reading Location: [facility] [id number] Consult Reading Room RAD, CHEST, 1 VIEW, NON [id number] 18:56:00Reason for exam:->PICC LINE PLACEMENT Should this [...] chest. Signed: Debbi Mancini Verified Date/Time: 10/10/2017 18:56:49 Reading Location: [facility] B1 C013W Consult Reading Room BLOOD [id number] 17:00:00 Test Item Value Reference Range Interpretation Comments CULTURE (BEAKER) (test No growth in 5 days code = 1095) BLOOD [id number] 17:00:00 Test Item Value Reference Range Interpretation Comments CULTURE (BEAKER) (test No growth in 5 days code = 1095) ANAEROBIC [id number] 07:29:00 Test Item Value Reference Range Interpretation Comments CULTURE (BEAKER) (test No anaerobes isolated code = 1095) BASIC METABOLIC [id number] 05:26:00 Test Item Value Reference Range Interpretation [...] PATIEN TS. CBC W/PLT COUNT & AUTO [id number] 05:05:00 Test Item Value Reference Range Interpretation [...] = 2801) RAD, CHEST, 1 VIEW, NON [id number] 18:47:00Reason for exam:->check picc placementShould this be [...] MDReport Verified Date/Time: 10/07/2017 18:47:06 Reading Location: [facility] B1 C013W Consult Reading Room Electronicallysigned by: FRANCIS MAYER on 10/07/2017 06:47 PMVANCOMYCIN LEVEL, [id number] 14:57:00 Test Item Value Reference Range Interpretation Comments VANCOMYCIN TROUGH (BEAKER) (test 9.7 ug/mL 10.0-20.0 L code = 522) Please obtain vancomycin trough 30 min prior to scheduled doseURINE CULTURE 2017-10-07 12:56:00 Test Item Value Reference Range Interpretation Comments CULTURE (BEAKER) (test <10,000 col/mL skin code = 1095) loreta SURGICALLY OBTAINED CULTURE + GRAM [id number] 12:55:00 Test Item Value Reference Range Interpretation [...] gram (BEAKER) (test code = positive cocci 518842) in pairs and clusters COMPREHENSIVE METABOLIC [id number] 07:40:00 Test Item Value Reference Range Interpretation [...] PATIEN TS. CBC W/PLT COUNT & AUTO [id number] 07:06:00 Test Item Value Reference Range Interpretation [...] PERCENT (BEAKER) (test code = 2801) TISSUE [id number] 17:49:00Surgical Pathology Report Case: [id number] Authorizing Provider: Jaziel Mcclelland MD Collected: 10/05/2017 1628 Ordering Location: [facility] PERI[facility] Received: 10/06/2017 0842 SERVICES Pathologist: Bethany Aranda MD Specimen: Explant, Electrodes and Generator DEHYDROGENATION OPERATOR HEAD, LUMBAR SPINE, REMOVAL: - DEHYDROGENATION OPERATOR HEAD (GROSS DIAGNOSIS)DB/pl Signing Pathologist Direct PhoneLine: [phone] signed by Bethany Aranda MD on 10/06/2017 at 5:49 [id number] woundElectrodes and GeneratorReceived fresh labeled "explant", description "electrodes and generator" is a 5.5 x 4.5 x 2.0 cm metallic medical sales associate with two attached clear plastic encased metallic wires each measuring 57.0 cm in length and 0.2 cm in diameter. The specimen is for gross identification only. DB/plBASIC METABOLIC [id number] 06:36:00 Test Item Value Reference Range Interpretation [...] NOT APPLICABLE FOR DIALYSIS PATIEN TS. FL, BREAD BAKER IN OR/30 MINUTE [id number] 21:03:00Reason for exam:- >lumbar wound infectionFINAL REPORT Examination: Fluoroscopic evaluation A single fluoroscopic spotview was obtained during the procedure by the ordering service. Images are nondiagnostic as no radiologist was present at the time of imaging. Cumulative dose was 1.2 mGy. Please see the procedure report for details. Signed: Anderson Yepez MDReport Verified Date/Time: 10/05/2017 21:03:54 Reading Location: [address] Reading Room CBC W/PLT COUNT & AUTO [id number] 17:03:00 Test Item Value Reference Range Interpretation [...] code = 2801) HGB/HCT (H&H) - STAT [id number] 16:00:00 Test Item Value Reference Range Interpretation Comments HEMOGLOBIN (BEAKER) (test code = 10.4 g/dL 12.0-15.0 L 410) HEMATOCRIT (BEAKER) (test code = 31.0 % 36.0-45.0 L 411) URINALYSIS W/ [id number] 15:08:00 Test Item Value Reference Range Interpretation [...] 516) SOURCE(BEAKER) (test code = Urine, Voided 5778) SEDIMENTATION [id number] 14:43:00 Test Item Value Reference Range Interpretation Comments SEDIMENTATION RATE, ERYTHROCYTE 18 mm/HR 0-40 (BEAKER) (test code = 766) BASIC METABOLIC [id number] 12:54:00 Test Item Value Reference Range Interpretation [...] NOT APPLICABLE FOR DIALYSIS PATIEN TS. C-REACTIVE [id number] 12:51:00 Test Item Value Reference Range Interpretation Comments C-REACTIVE PROTEIN (BEAKER) (test 5.19 mg/dL 0.00-0.50 H code = 676) LACTIC ACID, VENOUS, WHOLE [id number] 12:48:00 Test Item Value Reference Range Interpretation Comments LACTATE BLOOD VENOUS (2) (BEAKER) 1.7 mmol/L 0.5-2.2 (test code = 2872) Effective 01/28/2016: Units/Reference Range ChangeNew: 0.5-2.2 mmol/L Previous: 5-20 mg/dLPROTHROMBIN [id number] 12:44:00 Test Item Value Reference Range Interpretation Comments PROTIME (BEAKER) (test code = 15.5 seconds 11.7-14.7 H 759) INR (BEAKER) (test code = 370) 1.2 <=5.9 RECOMMENDED COUMADIN/WARFARIN INR THERAPY RANGESSTANDARD DOSE: 2.0 - 3.0 Includes: PROPHYLAXIS forvenous thrombosis, systemic embolization; TREATMENT for venous thrombosis and/or pulmonary embolus.HIGH RISK: Target INR is 2.5-3.5 for patients with mechanical heart valves.
[2020-08-14 16:10] LABS: Urine Blood NEGATIVE (NEG); Urine Glucose NEGATIVE (NEG); Urine Protein NEGATIVE (NEG); Urine Specific Gravity 1.025 (1.005-1.030)
--- NOTE | 2020-08-14 16:38 | RAD REPORT ---
EXAM DESCRIPTION: CT - Head Brain Wo Cont - 08/14/2020 4:28 pm CLINICAL HISTORY: headache, aphasia Headache, drowsiness COMPARISON: SINUS W O CONTRAST dated 01/13/2015 TECHNIQUE: All CT scans are performed using dose optimization technique as appropriate and may inclu de automated exposure control or mA/KV adjustment according to patient size. FINDINGS: No intracranial hemorrhage, hydrocephalus or extra-axial fluid collection.Mild brain atrop hy with mild periventricular and deep white matter chronic microvascular ischemic changes.No areas of brain edema or evidence of midline shift. The paranasal sinuses and mastoids are clear. The calvarium is intact. IMPRESSION: No acute intracranial abnormality.
[2020-08-14 17:09] LABS: Basophils % 0.7 % (0-1.3); Hematocrit 33.9 % (36.0-45.0); MPV 10.4 fL (7.6-11.3)
[2020-08-14 17:15] LABS: Protime INR 1.36
[2020-08-14 17:26] LABS: ALT/SGPT 22 U/L (12-78); AST/SGOT 14 U/L (15-37); Albumin 3.5 g/dL (3.4-5.0); Alkaline Phosphatase 169 U/L (45-117); BUN Blood Urea Nitrogen 17 mg/dL (7-18); Bicarbonate 27 mmol/L (21-32); Bilirubin Direct 0.1 mg/dL (0-0.2); Bilirubin Total 0.4 mg/dL (0.2-1.0); Glucose Level 119 mg/dL (74-106); NT PRO-BNP 71 pg/mL (<125); Potassium 4.1 mmol/L (3.5-5.1); Protein, Total 7.2 g/dL (6.4-8.2); Sodium Level 140 mmol/L (136-145); Troponin (Emerg Dept Use Only) < 0.02 ng/mL (0.0-0.045)
[2020-08-14] MEDS ORDERED: NA CHLORIDE 0.9% 500 ML ONE (17:39)
--- NOTE | 2020-08-14 18:31 | ER ---
Nurse's Notes [facility] Name: Kiera Gibson Age: 74 yrs Sex: Female : 1945 Arrival Date: 08/14/2020 Time: 15:39 Bed 19 Private MD: Jnúior Goncalves Diagnosis: Syncope and collapse;Speech disturbances, not elsewhere classified Presentation: 08/14 15:46 Chief complaint: Patient states: pt states i have been having dizzy spells, a headache, iw and unable to speak some words for over a week. My grand daughter is a nurse and told me to come in and get checked out. Coronavirus screen: Client denies travel out of the [place] in the last 14 days. Ebola Screen: No symptoms or risks identified at this time. Initial Sepsis Screen: Does the patient meet any 2 criteria? Yes Does the patient have a suspected source of infection? No. Patient's initial sepsis screen is negative. Risk Assessment: Do you want to hurt yourself or someone else? Patient reports no desire to harm self or others. Onset of symptoms is unknown. 15:46 Method Of Arrival: Ambulatory iw 15:46 Acuity: SHAMAR 3 iw Triage Assessment: 16:00 General: Appears in no apparent distress. comfortable, Behavior is calm, cooperative. rb3 Pain: Complains of pain in head. Neuro: Level of Consciousness is awake, alert, obeys commands, Oriented to person, place, time, situation. Cardiovascular: Patient's skin is warm and dry. Respiratory: Airway is patent Respiratory effort is even, unlabored, Respiratory pattern is regular, symmetrical. GI: No signs and/or symptoms were reported involving the gastrointestinal system. : No signs and/or symptoms were reported regarding the genitourinary system. Musculoskeletal: Range of motion: intact in all extremities. Historical: - Allergies: 16:00 Nitrofurantoin; rb3 16:00 PENICILLINS; rb3 16:00 PILOCARPINE; rb3 - Home Meds: 16:00 celecoxib 200 mg Oral cap [Active]; Eliquis 2.5 mg Oral tab 2 times per day [Active]; rb3 prednisone 5 mg Oral tab once daily [Active]; venlafaxine 150 mg Oral tr24 1 tab once daily [Active]; metoprolol succinate 50 mg oral Tb24 1 tab once daily [Active]; gabapentin 300 mg Oral cap [Active]; ropinirole 2 mg oral tab 1 tab nightly [Active]; metformin 500 mg Oral tab [Active]; montelukast 10 mg Oral tab 1 tab once daily [Active]; famotidine 40 mg Oral tab [Active]; atorvastatin 10 mg oral tab 1 tab once daily [Active]; omeprazole 40 mg Oral cpDR [Active]; Trilogy inhaler daily [Active]; trimethoprim 100 mg Oral tab 1 tab once daily [Active]; Restasis ophthalmic ophthalmic [Active]; Artificial Tears Opht [Active]; Thera Tears Nutrition [phone] bm-ld-ls-unit oral cap [Active]; Methotrexate (Anti-Rheumatic) Oral [Active]; Orencia (with maltose) 250 mg intravenous solr every 4 wks [Active]; biotin (bulk) miscellaneous [Active]; B12 sublingual sublingual [Active]; Vitamin C Oral [Active]; Vitamin D3 oral oral [Active]; cranberry oral oral [Active]; - Immunization history:: Adult Immunizations up to date. - Social history:: Smoking status: Patient/guardian denies using. Screenin:00 Abuse screen: Denies threats or abuse. Nutritional screening: No deficits noted. rb3 Tuberculosis screening: No symptoms or risk factors identified. Fall Risk Fall in past 12 months (25 points). No secondary diagnosis (0 pts). IV access (20 points). Ambulatory Aid- None/Bed Rest/Nurse Assist (0 pts). Gait- Normal/Bed Rest/Wheelchair (0 pts) Mental Status- Oriented to own ability (0 pts). Total Gutierrez Fall Scale indicates High Risk Score (45 or more points). Fall prevention measures have been instituted. Side Rails Up X 2 Placed Close to Nursing Station 1:1 Attendant Assigned Frequent Obs/Assessments Occuring As available patient and family educated on Fall Prevention Program and Strategies. Assessment: 16:00 General: See triage assessment. rb3 17:00 Reassessment: Patient appears in no apparent distress at this time. No changes from rb3 previously documented assessment. 18:00 Reassessment: Patient appears in no apparent distress at this time. Patient and/or rb3 family updated on plan of care and expected duration. Pain level reassessed. Patient is alert, oriented x 3, equal unlabored respirations, skin warm/dry/pink. 18:38 Reassessment: Patient appears in no apparent distress at this time. No changes from rb3 previously documented assessment. Vital Signs: 15:45 BP 131 / 67; Pulse 78; Resp 20; Temp 97.1; Pulse Ox 99% on R/A; Weight 100.7 kg (R); iw Height 5 ft. 5 in. (165.10 cm); Pain 2/10; 16:45 BP 96 / 62; Pulse 80; Resp 17; Pulse Ox 98% ; rb3 17:44 BP 114 / 82; Pulse 79; Resp 23; Pulse Ox 98% ; rb3 18:36 BP 138 / 66; Pulse 74; Resp 22; Pulse Ox 99% ; rb3 15:45 Body Mass Index 36.94 (100.70 kg, 165.10 cm) iw ED Course: 15:39 Patient arrived in ED. as 15:40 Júnior Goncalves MD is Private Physician. as 15:46 Arm band placed on right wrist. iw 15:47 Triage completed. iw 15:49 Bridger Davidson PA is PHCP. jmm 15:49 Thad Reyna MD is Attending Physician. jmm 16:00 Patient has correct armband on for positive identification. Placed in gown. Bed in low rb3 position. Call light in reach. Side rails up X 1. air brush artist on. Pulse ox on. NIBP on. Warm blanket given. 16:10 Monalisa Hussein, RN is Primary Nurse. rb3 16:28 CT Head Brain wo Cont In Process Unspecified. EDMS 16:50 Inserted saline lock: 22 gauge in left antecubital area, using aseptic technique. rb3 ,using aseptic technique. IV inserted by , aircraft quality control inspector Blood collected. 18:26 Josh Brand MD is Referral Physician. jmm 18:39 No provider procedures requiring assistance completed. IV discontinued, intact, rb3 bleeding controlled, No redness/swelling at site. Pressure dressing applied. Administered Medications: 17:30 Drug: NS 0.9% 500 ml Route: IV; Rate: bolus; Site: left antecubital; rb3 Outcome: 18:27 Discharge ordered by . jmm 18:39 Discharged to home ambulatory. rb3 18:39 Condition: stable 18:39 Discharge instructions given to patient, Instructed on discharge instructions, follow up and referral plans. Demonstrated understanding of instructions, follow-up care, Prescriptions given X none 18:45 Patient left the ED. rb3 Signatures: Dispatcher [employer] EDBridger Montesinos PA PA jmm Martinez, Amelia as Williams, Irene, RN RN Monalisa Hernandes RN RN rb3
--- NOTE | 2020-08-14 18:31 | EDPHYS ---
Physician Documentation [facility] Name: Kiera Gibson Age: 74 yrs Sex: Female : 1945 Arrival Date: 08/14/2020 Time: 15:39 Bed 19 Private MD: Júnior Goncalves ED Physician Thad Reyna HPI: 08/14 17:09 This 74 yrs old Female presents to ER via Ambulatory with complaints of Fall jmm Injury, Headache, Trouble Talking. 17:09 Details of fall: The patient fell from an upright position. Onset: The symptoms/episode jmm began/occurred acutely, 10 day(s) ago. Associated injuries: The patient sustained injury to the head. This is a 74 year old female with that presents to the ED with complaints of difficulty speaking ongoing for the past week along with headache. Patient states she fell after a syncopal episode 10 days ago. Patient states she has 1 to 2 similar episodes a year which is currently being evaluated by her executor of estate. Patient states since the fall for approx 1 week she has had difficulty finding words when talking. . Historical: - Allergies: 16:00 Nitrofurantoin; rb3 16:00 PENICILLINS; rb3 16:00 PILOCARPINE; rb3 - Home Meds: 16:00 celecoxib 200 mg Oral cap [Active]; Eliquis 2.5 mg Oral tab 2 times per day [Active]; rb3 prednisone 5 mg Oral tab once daily [Active]; venlafaxine 150 mg Oral tr24 1 tab once daily [Active]; metoprolol succinate 50 mg oral Tb24 1 tab once daily [Active]; gabapentin 300 mg Oral cap [Active]; ropinirole 2 mg oral tab 1 tab nightly [Active]; metformin 500 mg Oral tab [Active]; montelukast 10 mg Oral tab 1 tab once daily [Active]; famotidine 40 mg Oral tab [Active]; atorvastatin 10 mg oral tab 1 tab once daily [Active]; omeprazole 40 mg Oral cpDR [Active]; Trilogy inhaler daily [Active]; trimethoprim 100 mg Oral tab 1 tab once daily [Active]; Restasis ophthalmic ophthalmic [Active]; Artificial Tears Opht [Active]; Thera Tears Nutrition [phone] [id number] oral cap [Active]; Methotrexate (Anti-Rheumatic) Oral [Active]; Orencia (with maltose) 250 mg intravenous solr every 4 wks [Active]; biotin (bulk) miscellaneous [Active]; B12 sublingual sublingual [Active]; Vitamin C Oral [Active]; Vitamin D3 oral oral [Active]; cranberry oral oral [Active]; - Immunization history:: Adult Immunizations up to date. - Social history:: Smoking status: Patient/guardian denies using. ROS: 17:09 Constitutional: Negative for fever, chills, and weight loss, Cardiovascular: Negative jm for chest pain, palpitations, and edema, Respiratory: Negative for shortness of breath, cough, wheezing, and pleuritic chest pain. 17:09 Neuro: Positive for headache, speech changes. 17:09 All other systems are negative. Exam: 17:09 ECG was reviewed by the Attending Physician. [facility] 17:09 Constitutional: This is a well developed, well nourished patient who is awake, alert, jmm and in no acute distress. Head/Face: atraumatic. Eyes: EOMI, no conjunctival erythema appreciated ENT: Moist Mucus Membranes Neck: Trachea midline, Supple Chest/axilla: Normal chest wall appearance and motion. Cardiovascular: Regular rate and rhythm. No edema appreciated Respiratory: Normal respirations, no respiratory distress appreciated Abdomen/GI: Non distended, soft Back: Normal ROM Skin: General appearance color normal MS/ Extremity: Moves all extremities, no obvious deformities appreciated, no edema noted to the lower extremities Neuro: Awake and alert, normal gait Psych: Behavior is normal, Mood is normal, Patient is cooperative and pleasant Vital Signs: 15:45 BP 131 / 67; Pulse 78; Resp 20; Temp 97.1; Pulse Ox 99% on R/A; Weight 100.7 kg (R); iw Height 5 ft. 5 in. (165.10 cm); Pain 2/10; 16:45 BP 96 / 62; Pulse 80; Resp 17; Pulse Ox 98% ; rb3 17:44 BP 114 / 82; Pulse 79; Resp 23; Pulse Ox 98% ; rb3 18:36 BP 138 / 66; Pulse 74; Resp 22; Pulse Ox 99% ; rb3 15:45 Body Mass Index 36.94 (100.70 kg, 165.10 cm) iw MDM: 15:50 Patient medically screened. [facility] 18:26 Data reviewed: vital signs, nurses notes. Counseling: I had a detailed discussion with [facility] the patient and/or guardian regarding: the historical points, exam findings, and any diagnostic results supporting the discharge/admit diagnosis, the need for outpatient follow up, to return to the emergency department if symptoms worsen or persist or if there are any questions or concerns that arise at home. 20:33 ED course: I discussed the patient's case with Dr. Brand whom recommended out [facility] patient evaluation. . 08/14 16:06 Order name: Urine Dipstick--Ancillary (enter results); Complete Time: 16:54 1 08/14 16:11 Order name: Basic Metabolic Panel; Complete Time: 17:35 [facility] 08/14 16:11 Order name: CBC with Diff; Complete Time: 17:59 [facility] 08/14 16:11 Order name: LFT's; Complete Time: 17:35 [facility] 08/14 16:11 Order name: Magnesium; Complete Time: 17:35 [facility] 08/14 16:11 Order name: NT PRO-BNP; Complete Time: 17:35 [facility] 08/14 16:11 Order name: CT Head Brain wo Cont; Complete Time: 16:54 [facility] 08/14 16:11 Order name: PT-INR; Complete Time: 17:59 [facility] 08/14 16:11 Order name: Troponin (emerg Dept Use Only); Complete Time: 17:35 [facility] 08/14 16:11 Order name: EKG; Complete Time: 16:12 [facility] 08/14 16:11 Order name: Cardiac monitoring; Complete Time: 17:03 [facility] 08/14 16:11 Order name: EKG - Nurse/Tech; Complete Time: 17:03 [facility] 08/14 16:11 Order name: IV Saline Lock; Complete Time: 17:04 [facility] 08/14 16:11 Order name: Labs collected and sent; Complete Time: 17:04 [facility] 08/14 16:11 Order name: O2 Per Protocol; Complete Time: 17:04 [facility] 08/14 16:11 Order name: O2 Sat Monitoring; Complete Time: 17:04 [facility] EC:09 Rate is 73 beats/min. Rhythm is regular. QRS [place] is Normal. SD interval is normal. QRS jmm interval is normal. QT interval is normal. No Q waves. T waves are Normal. No ST changes noted. Reviewed by me. Administered Medications: 17:30 Drug: NS 0.9% 500 ml Route: IV; Rate: bolus; Site: left antecubital; rb3 Disposition: 08/15 06:01 Co-signature as Attending Physician, Thad Reyna MD I agree with the assessment and ze plan of care. Disposition: 08/14/20 18:27 Discharged to Home. Impression: Syncope and collapse, Speech disturbances, not elsewhere classified. - Condition is Stable. - Discharge Instructions: Syncope. - Medication Reconciliation Form, Thank You Letter, Antibiotic Education, Prescription Opioid Use, SBAR form form. - Follow up: Josh Brand MD; When: 2 - 3 days; Reason: Recheck today's complaints, Continuance of care, Re-evaluation by your physician. Signatures: Dispatcher [employer] EDMS Thad Reyna MD MD cha Mickail, Joel, PA PA jmm Barber, Rebecca, RN RN rb3 Corrections: (The following items were deleted from the chart) 08/14 18:45 18:27 08/14/2020 18:27 Discharged to Home. Impression: Syncope and collapse; Speech rb3 disturbances, not elsewhere classified. Condition is Stable. Forms are SBAR form, Medication Reconciliation Form, Thank You Letter, Antibiotic Education, Prescription Opioid Use. Follow up: Josh Brand; When: 2 - 3 days; Reason: Recheck today's complaints, Continuance of care, Re-evaluation by your physician. savi
[2020-08-15 08:01] VITALS: TEMP 97.1
[2020-08-15 08:07] VITALS: BP 138/66; O2SAT 99
--- NOTE | 2020-08-16 10:05 | EKG ---
Test Date: 2020-08-14 Test Time: 16:57:44 Pediatrics Hospitalist: JOSH MEASUREMENT RESULTS: Intervals: Rate: 73 NC: 164 QRSD: 78 QT: 378 QTc: 416 [place]: P: 60 NC: 164 QRS: 8 T: 54 INTERPRETIVE STATEMENTS: Normal sinus rhythm Normal ECG Compared to ECG 04/10/2018 08:33:27 No significant changes Electronically Signed On 08-16-20 10:03:41 MULTIPLEX OPERATOR by Elijah Gregorio
== END 2020-08-14 18:45 | disposition home or self-care (01) ==
LOC: ER 15:36
DX: R47.9 Unspecified speech disturbances (principal); R51.9 Headache, unspecified; W19.XXXA Unspecified fall, initial encounter; Y93.9 Activity, unspecified; Y92.9 Unspecified place or not applicable; Z79.01 Long term (current) use of anticoagulants; Z88.0 Allergy status to penicillin; Z88.8 Allergy status to other drugs, medicaments and biological substances
CPT/HCPCS: 93005; 85025; 80048; 36415; 83735; 85610; 80076; 81003; 84484; 83880; 70450; 99284; J7040

== ENCOUNTER 2024-12-08 13:27 | Emergency (ER) | payer OTHER, BC ==
[2024-12-08] MEDS ORDERED: ONDANSETRON 4 MG/2 ML VIAL ONE (14:07)
[2024-12-08] MEDS ORDERED: METHOCARBAMOL 1,000 MG/10 ML VIAL ONE (14:07)
[2024-12-08] MEDS ORDERED: MORPHINE 4 MG/ML SYR ONE (14:07)
[2024-12-08] MEDS ORDERED: KETOROLAC 30 MG/ML INJ ONE (14:07)
[2024-12-08] MEDS ORDERED: NA CHLORIDE 0.9% 100 ML ONE (14:08)
--- NOTE | 2024-12-08 14:36 | RAD REPORT ---
EXAMINATION: XR LEFT KNEE CLINICAL INDICATION: PAIN TECHNIQUE: Multiple projections of the left knee were obtained. COMPARISON: No prior exam. FINDINGS: Mild medial compartment space narrowing. No fracture, dislocation or joint effusion.
--- NOTE | 2024-12-08 14:40 | RAD REPORT ---
EXAMINATION: CT LUMBAR SPINE WITHOUT CONTRAST CLINICAL INDICATION: Female, 78 years old. PAIN TECHNIQUE: Axial CT images were obtained through the lumbar spine in soft tissue and bone windows wit hout intravenous contrast. Coronal and Sagittal reformatted images were created from the data set. One or more of the following dose reduction techniques were used: Automated exposure control, adjustm ent of the mA and/ or kV according to patient size, and/or iterative reconstruction. Unless otherwise specified, incidental findings do not require dedicated imaging follow-up. COMPARISON: No prior exam. FINDINGS: For purposes of this dictation, it is assumed that there are 5 non rib-bearing lumbar type vertebrae, and the most caudal fully segmented lumbar vertebra is labeled L5. ALIGNMENT: 8 mm degenerative anterolisthesis L4 on 5. BONES: No significant soft tissue abnormalities. No aggressive osseous lesions. DISCS: Vacuum degeneration is present at L2-3 and L4-5. LEVELS: Moderate central canal narrowing is present at L2-3. Left hemilaminectomy changes at L4-5. Mo derate central canal stenosis to 8 mm. SOFT TISSUE: Left renal stone is present measuring 17 mm. Mild right hydroureter. Sigmoid diverticulo sis coli. IMPRESSION: No acute lumbar spine abnormalities. Significant multilevel degenerative changes as detailed.
--- NOTE | 2024-12-08 15:44 | ER ---
Nurse's Notes [facility] Name: Kiera Gibson Age: 78 yrs Sex: Female : 1945 Arrival Date: 12/08/2024 Time: 13:27 Bed 16 Private MD: Diagnosis: Low back pain Presentation: 12/08 13:43 Chief complaint: Patient states: left hip pain radiating to left leg, also reports aa5 numbness to left leg. Coronavirus screen: At this time, the client does not indicate any symptoms associated with coronavirus-19. Ebola Screen: Patient denies travel to an Ebola-affected area in the 21 days before illness onset. Initial Sepsis Screen: Does the patient meet any 2 criteria? No. Patient's initial sepsis screen is negative. Does the patient have a suspected source of infection? No. Patient's initial sepsis screen is negative. Risk Assessment: Do you want to hurt yourself or someone else? Patient reports no desire to harm self or others. Onset of symptoms was November 2024. 13:43 Acuity: SHAMAR 3 aa5 13:43 Method Of Arrival: Ambulatory aa5 Historical: - Allergies: 13:44 Nitrofurantoin; aa5 13:44 PENICILLINS; aa5 13:44 PILOCARPINE; aa5 - PMHx: 13:44 Asthma; Chronic pain; Depression; DVT; Gastric Reflux; PE; Rheumatoid Arthritis; RLS; aa5 Sleep Apnea; SVT; - PSHx: 13:44 Neuro spinal stimulator (Unknown); aa5 - Immunization history:: Adult Immunizations unknown. - Infectious Disease History:: Denies. - Family history:: not pertinent. - Social history:: Smoking status: Patient denies any tobacco usage or history of. Screenin:02 [facility] ED Fall Risk Assessment (Adult) History of falling in the last 3 months, ph including since admission No falls in past 3 months (0 pts) Confusion or Disorientation No (0 pts) Intoxicated or Sedated No (0 pts) Impaired Gait No (0 pts) Mobility Assist Device Used No (0 pt) Altered Elimination No (0 pt) Score/Fall Risk Level 0 - 2 = Low Risk Oriented to surroundings, Maintained a safe environment. Abuse screen: Denies threats or abuse. Denies injuries from another. Nutritional screening: No deficits noted. Tuberculosis screening: No symptoms or risk factors identified. Assessment: 15:01 General: Appears in no apparent distress. comfortable, Behavior is calm, cooperative, ph appropriate for age. Pain: Complains of pain in left hip Pain radiates to left leg. Neuro: Level of Consciousness is awake, alert, obeys commands, Oriented to person, place, time, situation. Cardiovascular: Capillary refill < 3 seconds in bilateral fingers Patient's skin is warm and dry. Respiratory: Airway is patent Respiratory effort is even, unlabored. Derm: Skin is pink, warm \T\ dry. 15:56 Reassessment: Pt placed up for discharge, waiting for daughter to pick her up. ph Vital Signs: 13:43 BP 135 / 73; Pulse 90; Resp 18 S; Pulse Ox 98% on R/A; Weight 103.42 kg (R); Height 5 aa5 ft. 5 in. (R); 15:44 BP 126 / 68; Pulse 81; Resp 18; Temp 97.5; Pulse Ox 98% on R/A; ph 13:43 Body Mass Index 37.94 (103.42 kg, 165.1 cm) aa5 ED Course: 13:31 Patient arrived in ED. al6 13:32 Branden Perez MD is Attending Physician. rt 13:43 Arm band placed on. aa5 13:44 Triage completed. aa5 14:01 Nena Angel, RN is Primary Nurse. ph 14:15 Knee Left 3 View XRAY In Process Unspecified. EDMS 14:22 CT Lumbar Spine Wo Con In Process Unspecified. EDMS 15:00 Missed attempt(s): 24 gauge in left forearm. Bleeding controlled, band aid applied, ph catheter tip intact. Missed attempt(s): 24 gauge in left wrist. Bleeding controlled, band aid applied, catheter tip intact. Inserted saline lock: 24 gauge in left antecubital area, using aseptic technique. Flushed with 10 mL NS. 15:02 Patient has correct armband on for positive identification. Bed in low position. Call ph light in reach. Side rails up X 1. Pulse ox on. NIBP on. Door closed. Noise minimized. Lights dimmed. Warm blanket given. Pillow given. 15:09 No provider procedures requiring assistance completed. ph 15:45 IV discontinued, intact, bleeding controlled, No redness/swelling at site. Pressure ph dressing applied. Administered Medications: 15:08 Drug: morphine IVP or IV 4 mg IVP once over 4 mins Route: IVP; Infused Over: 4 mins; ph Site: left antecubital; 15:44 Follow up: Response: No adverse reaction; Pain is decreased ph 15:08 Drug: Ondansetron IVP 4 mg IVP once; over 2 minutes Route: IVP; Site: left antecubital; ph 15:44 Follow up: Response: No adverse reaction ph 15:08 Drug: Ketorolac IVP 15 mg IVP once Route: IVP; Site: left antecubital; ph 15:44 Follow up: Response: No adverse reaction; Pain is decreased ph 15:08 Drug: Methocarbamol IVPB 1 grams IVPB once over 1 hrs; (mix in NS 100 mL) Route: IVPB; ph Infused Over: 1 hrs; Site: left antecubital; 15:44 Follow up: Response: No adverse reaction; IV Status: Completed infusion ph Medication: 15:02 VIS not applicable for this client. ph Outcome: 15:44 Discharge ordered by . rt 16:06 Discharged to home via wheelchair, with family, ph 16:06 Condition: good 16:06 Discharge instructions given to patient, Instructed on discharge instructions, follow up and referral plans. medication usage, Demonstrated understanding of instructions, follow-up care, medications, Prescriptions given X 1, 16:06 Patient left the ED. ph Signatures: Dispatcher [employer] Nery Mishra RN RN aa5 Nena Angel RN RN ph Branden Perez MD MD rt Sanaz [email or web address]
--- NOTE | 2024-12-08 15:44 | EDPHYS ---
Physician Documentation [facility] Name: Kiera Gibson Age: 78 yrs Sex: Female : 1945 Arrival Date: 12/08/2024 Time: 13:27 Bed 16 Private MD: ED Physician Branden Perez HPI: 12/08 18:25 This 78 yrs old Female presents to ER via Ambulatory with complaints of Hip Pain. rt 18:25 Patient with history of back issues presents to the ED with a left-sided back pain rt radiating laterally around to the front of the left leg, reports a numbness to the leg. Denies bowel, bladder incontinence. Denies other acute complaints at this time, symptoms are moderate in severity, no other aggravating or alleviating factors.. Historical: - Allergies: 13:44 Nitrofurantoin; aa5 13:44 PENICILLINS; aa5 13:44 PILOCARPINE; aa5 - PMHx: 13:44 Asthma; Chronic pain; Depression; DVT; Gastric Reflux; PE; Rheumatoid Arthritis; RLS; aa5 Sleep Apnea; SVT; - PSHx: 13:44 Neuro spinal stimulator (Unknown); aa5 - Immunization history:: Adult Immunizations unknown. - Infectious Disease History:: Denies. - Family history:: not pertinent. - Social history:: Smoking status: Patient denies any tobacco usage or history of. ROS: 18:25 Constitutional: Negative for fever, chills, and weight loss, Cardiovascular: Negative rt for chest pain, palpitations, and edema, Respiratory: Negative for shortness of breath, cough, wheezing, and pleuritic chest pain, Abdomen/GI: Negative for abdominal pain, nausea, vomiting, diarrhea, and constipation, Skin: Negative for injury, rash, and discoloration, 18:25 Back: Positive for pain at rest, radiated pain, Exam: 18:25 Constitutional: This is a well developed, well nourished patient who is awake, alert, rt and in no acute distress. Head/Face: Normocephalic, atraumatic. Chest/axilla: Normal chest wall appearance and motion. Nontender with no deformity. No lesions are appreciated. Cardiovascular: Regular rate and rhythm with a normal S1 and S2. No gallops, murmurs, or rubs. Normal PMI, no JVD. No pulse deficits. Respiratory: Lungs have equal breath sounds bilaterally, clear to auscultation and percussion. No rales, rhonchi or wheezes noted. No increased work of breathing, no retractions or nasal flaring. Abdomen/GI: Soft, non-tender, with normal bowel sounds. No distension or tympany. No guarding or rebound. No evidence of tenderness throughout. Skin: Warm, dry with normal turgor. Normal color with no rashes, no lesions, and no evidence of cellulitis. MS/ Extremity: Pulses equal, no cyanosis. Neurovascular intact. Full, normal range of motion. Neuro: Awake and alert, GCS 15, oriented to person, place, time, and situation. Cranial nerves II-XII grossly intact. Motor strength 5/5 in all extremities. Sensory grossly intact. Cerebellar exam normal. Normal gait. 18:25 Back: Tenderness to the left lower paraspinal region, no midline tenderness, no step-offs, Vital Signs: 13:43 BP 135 / 73; Pulse 90; Resp 18 S; Pulse Ox 98% on R/A; Weight 103.42 kg (R); Height 5 aa5 ft. 5 in. (R); 15:44 BP 126 / 68; Pulse 81; Resp 18; Temp 97.5; Pulse Ox 98% on R/A; ph 13:43 Body Mass Index 37.94 (103.42 kg, 165.1 cm) aa5 MDM: 13:50 Medical Screening Exam initiated rt 18:25 Differential diagnosis: This disease, radicular back pain. Data reviewed: vital signs, rt nurses notes, radiologic studies. I considered the following discharge prescriptions or medication management in the emergency department Medications were administered in the Emergency Department. See MAR. Independent interpretation of the following test(s) in the Emergency Department CT Scan: My interpretation is Nephrolithiasis seen on interpretation of CT scan images, discussed this with the patient, states that this is a known issue, chronic. Test considered but Not performed: MRI: No red flag symptoms to suggest cauda equina syndrome, spinal epidural abscess, emergent MRI is not indicated. Care significantly affected by the following chronic conditions: Rheumatoid arthritis. Counseling: I had a detailed discussion with the patient and/or guardian regarding the historical points, exam findings, and any diagnostic results supporting the discharge/admit diagnosis, radiology results, the need for outpatient follow up, to return to the emergency department if symptoms worsen or persist or if there are any questions or concerns that arise at home. Response to treatment: the patient's symptoms have markedly improved after treatment. 12/08 14:01 Order name: CT Lumbar Spine Wo Con; Complete Time: 15:10 rt 12/08 14:01 Order name: Knee Left 3 View XRAY; Complete Time: 15:10 rt Administered Medications: 15:08 Drug: morphine IVP or IV 4 mg IVP once over 4 mins Route: IVP; Infused Over: 4 mins; ph Site: left antecubital; 15:44 Follow up: Response: No adverse reaction; Pain is decreased ph 15:08 Drug: Ondansetron IVP 4 mg IVP once; over 2 minutes Route: IVP; Site: left antecubital; ph 15:44 Follow up: Response: No adverse reaction ph 15:08 Drug: Ketorolac IVP 15 mg IVP once Route: IVP; Site: left antecubital; ph 15:44 Follow up: Response: No adverse reaction; Pain is decreased ph 15:08 Drug: Methocarbamol IVPB 1 grams IVPB once over 1 hrs; (mix in NS 100 mL) Route: IVPB; ph Infused Over: 1 hrs; Site: left antecubital; 15:44 Follow up: Response: No adverse reaction; IV Status: Completed infusion ph Disposition Summary: 12/08/24 15:44 Discharge Ordered Notes: Location: Home rt Problem: new rt Symptoms: have improved rt Condition: Stable rt Diagnosis - Low back pain rt Followup: rt - With: Private Physician - When: 5 - 6 days - Reason: Discharge Instructions: - Discharge Summary Sheet rt - Acute Back Pain, Adult rt Forms: - Medication Reconciliation Form rt - Antibiotic Education rt - Prescription Opioid Use rt - Patient Portal Instructions rt - Leadership Thank You Letter rt Prescriptions: - methocarbamol 500 mg Oral tablet - take 1 tablet ORAL route 4 times per day as needed for muscle spasm; 30 tablet; rt Refills: 0, Product Selection Permitted Signatures: Dispatcher [employer] Nery Mishra RN RN aa5 Nena Angel RN RN ph Branden Perez MD MD rt Corrections: (The following items were deleted from the chart) 14:02 14:02 Knee Left 3 View+[email or web address] ordered. EDMS EDMS
[2024-12-08 16:10] VITALS: O2SAT 98
[2024-12-08 16:11] VITALS: BP 126/68; TEMP 97.5
== END 2024-12-08 16:06 | disposition home or self-care (01) ==
LOC: ER 13:27
DX: M54.50 Low back pain, unspecified (principal); G89.29 Other chronic pain; Z96.82 Presence of neurostimulator
CPT/HCPCS: 96365; 72131; 73562; 96375; 99284; J2405; J2800